=== PATIENT | female | born 1985 | race Caucasian/White ===

== ENCOUNTER 2020-04-22 14:35 | Outpatient (REF) | payer OTHER, SELFPAY ==
[2020-04-22 17:06] LABS: HCG Quantitative < 2 mIU/mL
== END 2020-04-22 14:36 | disposition home or self-care (01) ==
LOC: HO.HMGCLDS 14:35
PROVIDERS: PCP Internal Medicine; Visit Provider Nurse Practitioner Family
DX: Q83.9 Congenital malformation of breast, unspecified (principal)
CPT/HCPCS: 84702

== ENCOUNTER 2020-04-24 17:48 | Emergency (ER) | payer OTHER, SELFPAY ==
[2020-04-24 18:25] VITALS: BP 122/96; PULSE 85; RESP 16; TEMP 36.7; O2SAT 99; BMI 43.4
[2020-04-24 19:23] LABS: Glucose Urine UA NEG (NEG); Leukocyte Esterase Urine NEG (NEG); Nitrite Urine NEG (NEG); PH 5.5 (5.0-8.0); Specific Gravity - Urine >= 1.030 (1.005-1.025); Urine Blood NEG (NEG); Urine Ketones NEG (NEG); Urine Protein NEG (NEG-TRACE)
--- NOTE | 2020-04-24 19:24 | PC.NURSE ---
UA obtained and sent, pt ambulating to the bathroom with a gao/steady gait. Awaiting room assignment.
[2020-04-24 19:25] LABS: Appearance Urine CLEAR; Color Urine YELLOW
[2020-04-24 19:26] LABS: UPreg QC Valid YES; Urine Pregnancy NEGATIVE (NEGATIVE)
[2020-04-24 19:33] LABS: Bacteria Urine 1+ /LPF; RBC Urine 0 /HPF (0); Squamous Epithelial Cell Urine 1+ /LPF; WBC Urine 0 /HPF (0-4)
--- NOTE | 2020-04-24 20:21 | PC.NURSE ---
PT TO ROOM WITH C/O DIZZINESS. PT ARRIVES ALERT, RESPIRATIONS EASY, N/L. PT AWAITING FOR MD'S EVAL.
--- NOTE | 2020-04-24 20:23 | PC.NURSE ---
PT TO ED WITH C/O ABD PAIN. PT ARRIVES ALERT, RESPIRATIONS EASY, N/L. SKIN W/D. PT AWAITING FOR MD'S EVAL.
--- NOTE | 2020-04-24 20:58 | ED.ABDPAIN ---
HPI - Abdominal Pain General Chief Complaint: Abdominal Pain Stated Complaint: lump on abd Time Seen by Provider: 04/24/20 20:58 Source: patient Mode of arrival: ambulatory Limitations: no limitations History of Present Illness HPI narrative: Patient has had a lump in her abdomen for 3 weeks, does not move. [place] swollen and thought she was patient had prior cholecystectomy. Related Data Allergies Allergy/AdvReac Type Severity Reaction Status Date / Time No Known Allergies Allergy Verified 04/24/20 18:27 apples, strawberries, kiwi, Allergy Unknown shortness Uncoded 04/24/20 18:27 ma of breath Cats, Dust mites Allergy Unknown per Uncoded 04/24/20 18:27 allergy testing Environmental Allergy Unknown per Uncoded 04/24/20 18:27 allergy testing Review of Systems Constitutional: Reports no additional constitutional complaints Eyes: Reports no additional eye complaints Denies dizziness Cardiovascular: Reports no additional cardiovascular complaints Respiratory: Reports as per HPI Gastrointestinal: Reports no additional gastrointestinal complaints Genitourinary: Reports no additional female genitourinary complaints Musculoskeletal: Reports no additional musculoskeletal complaints Skin/Breast: Denies rash Reports system reviewed and no additional complaints, except as documented, Denies dizziness and Denies Sensory deficit (Neuro) Psychiatric: Denies anxiety Physical Exam Vital Signs: Vital Signs: Last Vital Signs Temp 98.1 F 04/24/20 18:25 Pulse 85 04/24/20 18:25 Resp 16 04/24/20 18:25 BP 122/96 H 04/24/20 18:25 Pulse Ox 99 04/24/20 18:25 Body Mass Index 43.4 Const: Other: female in no apparent distress Nutritional Appearance: obese Orientation/consciousness: oriented to person and patient oriented x3 Limitations: no limitations HENMT: Head: Yes normal to inspection Ears: external ears normal General nose exam: Normal external nose present Mouth: Normal oral and palatal mucosa present and oropharynx normal Throat: Yes posterior oropharynx normal Eyes: General: appearance normal, both eyes and all related structures Neck: Other: supple Neck: Yes normal visual inspection Chest: Chest palpation & inspection: normal inspection of the chest Resp: Auscultation: clear to auscultation bilaterally Cardio: Jugular venous distension: no JVD Rate: regular rate Rhythm: regular rhythm Heart sounds: S1 normal heart sound present and S2 normal heart sound present GI: Other: periumbilical/ventral hernia easily reduced, no erythema non tender Inspection: Yes normal to inspection Palpation (GI): Soft to palpation, nontender and No hepatosplenomegaly present Auscultation: normal bowel sounds : General: Yes no CVA tenderness Back/Spine/Pelvis: Back: no CVA tenderness Skin: General skin exam: no rashes or lesions noted Neuro: General: oriented to person and patient oriented x3 Cranial nerves: Yes CN's II-XII intact bilaterally Motor exam (neuro): 5/5 motor strength present throughout Sensory Exam: No Sensory deficit (Neuro) Extrem: General: Yes normal to inspection Psych: Appearance: grossly normal Course Course Course Narrative: easily reduced hernia MDM - Abdominal Pain MDM Narrative Medical decision making narrative: will dc home for evaluation by surgeon Differential Diagnosis Differential diagnosis narrative:: ventral/umbilical hernia Lab Data Labs: Lab Results 04/24/20 Range/Units 19:11 Urine Color YELLOW Urine Appearance CLEAR Urine pH 5.5 (5.0-8.0) Ur Specific [place] >= 1.030 H (1.005-1.025) Urine Protein NEG (NEG-TRACE) MG/DL Urine Glucose (UA) NEG (NEG) MG/DL Urine Ketones NEG (NEG) MG/DL Urine Blood NEG (NEG) Urine Nitrite NEG (NEG) Ur Leukocyte Esterase NEG (NEG) Urine RBC 0 (0) /HPF Urine WBC 0 (0-4) /HPF Ur Squamous Epith Cells 1+ /LPF Urine Bacteria 1+ /LPF Urine Test NEGATIVE (NEGATIVE) Discharge Plan Discharge Clinical Impression: Postoperative incisional hernia Ventral hernia Qualifiers: Obstruction and gangrene presence: without obstruction or gangrene Qualified Code(s): K43.9 - Ventral hernia without obstruction or gangrene Patient Disposition: Home, Self-Care Instructions: Ventral Hernia (ED) Referrals: Jadyn Tinoco MD [Primary Care Provider] - 2 days Harish Morris MD [Physician] - 2 days [facility] Past Medical History Surgical History (Updated 04/24/20 @ 18:26 by Shayy Mares RN) History of cholecystectomy Social History Social History Advance Directives: No Advance Directives Information Provided: No Advance Directives on File: No
--- NOTE | 2020-04-24 21:03 | PC.NURSE ---
in room for eval.
== END 2020-04-24 21:59 | disposition home or self-care (01) ==
PROVIDERS: Emergency Provider Emergency Medicine; PCP Internal Medicine
DX: K43.9 Ventral hernia without obstruction or gangrene (principal)
CPT/HCPCS: 81001; 81025; 99283

== ENCOUNTER 2020-05-23 10:12 | Outpatient (REF) | payer OTHER, SELFPAY ==
[2020-05-24 11:04] LABS: BV Int Neg Control Negative (Negative); BV Int Pos Control Positive (Positive)
[2020-06-20 16:26] LABS: CT PCR NOT DETECTED (Not Detect.); NG PCR NOT DETECTED (Not Detect.)
== END 2020-05-23 10:13 | disposition home or self-care (01) ==
LOC: HO.LAB 10:12
PROVIDERS: PCP Internal Medicine; Visit Provider Advanced Practice Midwife
DX: R10.2 Pelvic and perineal pain (principal); N92.6 Irregular menstruation, unspecified; N95.1 Menopausal and female climacteric states; E66.01 Morbid (severe) obesity due to excess calories; L70.9 Acne, unspecified; M79.18 Myalgia, other site; Z11.8 Encounter for screening for other infectious and parasitic diseases; Z11.3 Encounter for screening for infections with a predominantly sexual mode of transmission; Z68.41 Body mass index [BMI] 40.0-44.9, adult
CPT/HCPCS: 81025; 87480; 87491; 87510; 87591; 87660; 99212

== ENCOUNTER 2020-05-26 13:40 | Outpatient (REF) | payer OTHER, SELFPAY ==
--- NOTE | 2020-05-26 14:24 | US_ITS ---
EXAMINATION: US PELVIS, COMPLETE CLINICAL INFORMATION: Pelvic and perineal pain. COMPARISON: 12/03/2014 TECHNIQUE: Transabdominal and transvaginal imaging was performed. FINDINGS: LMP: January 2020 Uterus is anteverted , measuring 8.9 x 5.7 x 6 cm. Nabothian cysts present. Endometrial thickness 0.7 cm. 0.6 x 0.5 x 0.4 cm cystic focus in the myometrium body adjacent to the endometrium. Right ovary measures 3.1 x 2.4 x 2.8 cm. Volume 10.7 mL. 2 cm relatively anechoic avascular cyst. Left ovary measures 2.2 x 1.8 x 1.4 cm. Volume 2.9 mL. Left ovary appears unremarkable. Small amount of free fluid in the cul-de-sac. US/US pelvic complete IMPRESSION: 1. Nonspecific 0.6 cm myometrial cystic focus in the body of the uterus. 2. Right ovarian 2 cm cyst. 3. Small free fluid in the cul-de-sac.
--- NOTE | 2020-05-26 14:24 | US_ITS ---
EXAMINATION: US PELVIS, COMPLETE CLINICAL INFORMATION: Pelvic and perineal pain. COMPARISON: 12/03/2014 TECHNIQUE: Transabdominal and transvaginal imaging was performed. FINDINGS: LMP: January 2020 Uterus is anteverted , measuring 8.9 x 5.7 x 6 cm. Nabothian cysts present. Endometrial thickness 0.7 cm. 0.6 x 0.5 x 0.4 cm cystic focus in the myometrium body adjacent to the endometrium. Right ovary measures 3.1 x 2.4 x 2.8 cm. Volume 10.7 mL. 2 cm relatively anechoic avascular cyst. Left ovary measures 2.2 x 1.8 x 1.4 cm. Volume 2.9 mL. Left ovary appears unremarkable. Small amount of free fluid in the cul-de-sac. US/US transvaginal IMPRESSION: 1. Nonspecific 0.6 cm myometrial cystic focus in the body of the uterus. 2. Right ovarian 2 cm cyst. 3. Small free fluid in the cul-de-sac.
[2020-05-26 17:05] LABS: Thyroid Stimulating Hormone 0.98 uIU/mL (0.32-4.0)
[2020-05-27 16:02] LABS: Follicle Stimulating Hormone 3.5 mIU/mL; Prolactin 8.3 ng/mL
[2020-05-27 21:53] LABS: DHEA Sulfate 93 mcg/dL (23-266)
[2020-06-01 16:07] LABS: Testosterone, Total 31 ng/dL (2-45)
== END 2020-05-26 13:41 | disposition home or self-care (01) ==
LOC: HO.HMGCX 13:40
PROVIDERS: PCP Internal Medicine; Visit Provider Advanced Practice Midwife
DX: R10.2 Pelvic and perineal pain (principal)
CPT/HCPCS: 76830; 76856; 82627; 83001; 83498; 84146; 84402; 84403; 84443

== ENCOUNTER 2020-09-16 13:05 | Outpatient (REF) | payer OTHER, SELFPAY ==
[2020-09-17 11:29] LABS: CT PCR NOT DETECTED (Not Detect.); NG PCR NOT DETECTED (Not Detect.)
[2020-09-17 11:37] LABS: BV Int Neg Control Negative (Negative); BV Int Pos Control Positive (Positive)
== END 2020-09-16 13:06 | disposition home or self-care (01) ==
LOC: HO.LAB 13:05
PROVIDERS: PCP Internal Medicine; Visit Provider Advanced Practice Midwife
DX: Z01.419 Encounter for gynecological examination (general) (routine) without abnormal findings (principal); R30.0 Dysuria; L29.2 Pruritus vulvae; R10.2 Pelvic and perineal pain; Z20.2 Contact with and (suspected) exposure to infections with a predominantly sexual mode of transmission
CPT/HCPCS: 81003; 87480; 87491; 87510; 87591; 87660

== ENCOUNTER 2020-12-22 16:29 | Emergency (ER) | payer OTHER, SELFPAY ==
--- NOTE | 2020-12-22 | ECG_ITS ---
Test Reason : FLANK PAIN Blood Pressure : / mmHG Vent. Rate : 093 BPM Atrial Rate : 093 BPM P-R Int : 112 ms QRS Dur : 082 ms QT Int : 338 ms P-R-T Axes : 008 064 013 degrees QTc Int : 420 ms Normal sinus rhythm Anterior infarct , age undetermined Abnormal ECG When compared with ECG of 11-APR-2015 14:39, Vent. rate has decreased BY [address] no longer depressed in Anterior leads Nonspecific T wave abnormality has replaced inverted T waves in Inferior leads Referred By: Generic ED Physician Electronically Signed By:Cyrus Tejada
--- NOTE | ~2020-12-22 | XR_ITS ---
EXAMINATION: XR CHEST CLINICAL INFORMATION: Shortness of breath COMPARISON: None TECHNIQUE: 2 views of the chest were obtained. FINDINGS: No significant abnormality is noted involving the heart, lungs, mediastinum, bony thorax or soft tissues. XR/XR chest 2V IMPRESSION: Unremarkable examination.
--- NOTE | ~2020-12-22 | CT_ITS ---
EXAMINATION: CT ABDOMEN AND PELVIS WITHOUT CONTRAST CLINICAL INFORMATION: Flank pain with UTI and stones COMPARISON: CT abdomen pelvis 10/22/2009 TECHNIQUE: Multidetector volumetric imaging was performed from the superior aspect of the liver through the pubic symphysis. Sagittal and coronal reformatted images were obtained on the technologist's workstation. This CT examination was performed using dose optimization techniques as appropriate, variously including the following: *Automated exposure control *Adjustment of mA and/or kV according to patient size (this includes techniques or standardized protocols for targeted exams where dose is matched to indication/reason for exam; i.e. extremities or head) *Use of iterative reconstruction technique DLP: 819 mGy-cm FINDINGS: LUNG BASES: The visualized lung bases are unremarkable. LIVER, GALLBLADDER, AND BILIARY TREE: The liver is normal in size, shape, and attenuation. No focal hepatic lesion or biliary ductal dilatation is present. Status post cholecystectomy PANCREAS: Unremarkable. SPLEEN: Unremarkable. ADRENAL GLANDS: Unremarkable. KIDNEYS AND URETERS: There is some edematous change and stranding around the right kidney. No renal calculi are seen on either side. No renal masses are seen. No gross hydronephrosis is seen. BLADDER: The bladder is empty and difficult to evaluate. No bladder stones are seen. GASTROINTESTINAL TRACT: A tiny hiatal hernia is present. The small and large bowel are unremarkable. The appendix is unremarkable. ABDOMINAL WALL: No significant hernia is appreciated. LYMPH NODES: No retroperitoneal lymphadenopathy. VASCULAR: Unremarkable. PELVIC VISCERA: An anteverted uterus is present. A 2.6 cm left ovarian cyst is seen. The right ovary is unremarkable. No free intraperitoneal fluid is seen. OSSEOUS STRUCTURES: Unremarkable. CT/CT abdomen pelvis wo con IMPRESSION: Right-sided perinephric stranding suggesting possible bacterial nephritis. No calculi are seen. A CT urogram could be useful for further evaluation.
[2020-12-22 18:02] VITALS: BP 139/84; PULSE 96; RESP 18; TEMP 36.9; O2SAT 98; BMI 40.5
[2020-12-22 20:17] LABS: Basophils Percent Auto 0.2 % (0-2); Eosinophils Percent Auto 0.2 % (0-4); Hematocrit 36.9 % (37-47); Hemoglobin 12.8 g/dl (12.0-16.0); Imm Gran Abs Auto 0.08 X10*3/uL (0.00-0.03); Imm Gran Pct Auto 0.4 % (0.0-0.4); Lymphocytes Absolute Auto 2.1 X10*3/uL (1.2-4.9); Lymphocytes Percent Auto 11.7 % (20-40); MANUAL DIFF FLAG SCAN; Mean Corpuscular HGB Conc 34.7 g/dl (31.0-35.0); Mean Corpuscular Hemoglobin 31.6 pg (27.0-33.0); Mean Corpuscular Volume 91.1 fL (80-98); Mean Platelet Volume 10.3 fL (9.4-12.3); Monocytes Absolute Auto 1.7 X10*3/uL (0.1-1.2); Monocytes Percent Auto 9.2 % (2-11); Neutrophils Absolute Auto 14.2 X10*3/uL (2.0-8.3); Neutrophils Percent Auto 78.3 % (45-73); Platelet Count 240 X10*3/uL (160-400); Red Blood Count 4.05 X10*6/uL (4.20-5.50); Red Cell Distribution Width 12.2 % (11.0-16.0); SCAN SMEAR FLAG 1; White Blood Count 18.1 X10*3/uL (4.8-10.8)
[2020-12-22 20:40] LABS: SLIDE REVIEW VERIFIED
[2020-12-22 20:49] LABS: Alanine Aminotransferase 27 U/L (0-31); Alkaline Phosphatase 106 U/L (39-117); Anion Gap 14 (12-20); Aspartate Amino Transferase 15 U/L (5-31); Bilirubin Direct 0.5 mg/dL (0.0-0.5); Blood Urea Nitrogen 8 mg/dL (9-16); Calcium 8.6 mg/dL (8.4-10.2); Carbon Dioxide 20 mmol/L (22-29); Chloride 107 mmol/L (96-108); Creatinine Clr Calc Pharmacy 116.4; Estimated Glomerular Filt Rate > 60; Glucose Random 92 mg/dL (60-115); Lipase 11 U/L (8-78); Potassium 3.3 mmol/L (3.3-5.1); Sodium 138 mmol/L (135-145); Total Protein 6.8 g/dL (6.5-8.0)
[2020-12-22 21:11] LABS: Glucose Urine UA NEG (NEG); Leukocyte Esterase Urine TRACE (NEG); Nitrite Urine POS (NEG); Specific Gravity - Urine 1.025 (1.005-1.025); UACC Culture Trigger YES; Urine Blood 2+ (NEG); Urine Ketones >=80 MG/DL (NEG); Urine Protein 1+ MG/DL (NEG-TRACE)
[2020-12-22 21:13] VITALS: BP 133/82; PULSE 97; RESP 20; TEMP 37.2; O2SAT 100
[2020-12-22 21:13] LABS: Appearance Urine HAZY; Color Urine YELLOW; UPreg QC Valid YES; Urine Pregnancy NEGATIVE (NEGATIVE)
--- NOTE | 2020-12-22 21:14 | PC.NURSE ---
IV established. UA obtained and sent for analysis. news technical director at bedside for EKG. VSS. Awaiting primary MD salcido.
--- NOTE | 2020-12-22 21:18 | ED_ITS ---
HPI - General Adult General Chief complaint: General Medical Stated complaint: mutiple complaints Time Seen by Provider: 12/22/20 18:53 Source: patient Mode of arrival: ambulatory Limitations: no limitations History of Present Illness HPI narrative: Patient complaining of right flank pain for last 5 days nausea , vomiting and now diarrhea for last 2 days had fever at home with chills on arrival patient temperature was 103.1 degrees oral. Increased pain on taking deep inspiration also patient complaining of order in the urine without any dysuria frequency no hematuria patient does have history kidney stones in the past Related Data Home Medications Medication Instructions Recorded Confirmed erythromycin 5 mg/gram (0.5 %) eye 1 appl OPHTHALMIC (EYE) .4 times 07/03/20 ointment daily g ibuprofen 800 mg tablet 800 mg PO Q6H 07/03/20 ondansetron 4 mg disintegrating 4 mg PO DAILY tab 07/03/20 tablet Previous Rx's Medication Instructions Recorded metronidazole 500 mg tablet 500 mg PO BID 7 Days #14 tab 05/27/20 montelukast 10 mg tablet 10 mg PO DAILY 90 Days #90 tab 06/02/20 hydrocortisone 1 % topical ointment 1 appl TOPICAL BID #28.35 g 09/16/20 norethindrone (contraceptive) 0.35 0.35 mg PO DAILY PRN 30 Days #30 09/16/20 mg tablet tab metronidazole 0.75 % vaginal gel 1 appful VAGINAL BEDTIME 5 Days 09/23/20 #70 g ciprofloxacin HCl [Cipro] 500 mg PO BID #20 tab 12/22/20 ondansetron 4 mg PO Q6-8H PRN #7 tab 12/22/20 tramadol 50 mg PO Q6H PRN #20 tab 12/22/20 Allergies Allergy/AdvReac Type Severity Reaction Status Date / Time apples, strawberries, kiwi, Allergy Unknown shortness Uncoded 12/22/20 23:01 ma of breath Cats, Dust mites Allergy Unknown per Uncoded 12/22/20 23:01 allergy testing Environmental Allergy Unknown per Uncoded 12/22/20 23:01 allergy testing Review of Systems Review of Systems: Yes all other systems are reviewed and are negative PMFSH Past Medical History Medical History Migraine with aura Surgical History History of cholecystectomy Family History Family History Father Diabetes mellitus Mother High cholesterol HTN (hypertension) CVD (cardiovascular disease) Brother Diabetes mellitus Asthma Maternal Grandmother Diabetes mellitus Cancer Maternal Grandfather Diabetes mellitus Cancer Paternal Grandmother Unknown family medical history Paternal Grandfather No problems noted. Maternal Aunt Breast cancer Brother No problems noted. Brother No problems noted. Sister No problems noted. Daughter No problems noted. Daughter No problems noted. Daughter No problems noted. Social History Social History Alcohol intake: never Substance Use Type: Marijuana Advance Directives: No Advance Directives Information Provided: Yes Patient : No Physical Exam Vital Signs: Vital Signs: Last Vital Signs Temp 99.7 F 12/22/20 23:00 Pulse 85 12/22/20 23:44 Resp 20 12/22/20 23:44 BP 133/62 12/22/20 23:44 Pulse Ox 100 12/22/20 21:13 Body Mass Index 40.5 Appearance: Alert. Oriented X3. In moderate distress complaining of right flank pain Eyes: PERRLA, No Nystagmus ENT: Pharynx normal. Oral Mucosa moist Neck: Normal inspection. Neck supple. CVS: Normal heart rate and rhythm. Pulses normal. Respiratory: No respiratory distress. Equal air entry bilateral, Abdomen: Soft and nontender. Bowel sounds are present, no mass palpable, right CVA tenderness ++ Skin: Skin warm and dry. Normal skin color. Normal skin turgor. Extremities: No lower extremity edema. No calf tenderness Neuro: Oriented X 3. No motor deficit. Medical Decision Making MDM Narrative Medical decision making narrative: Patient with UTI with flank pain with fever and leukocytosis clinically a pyelonephritis patient does not have any other comorbid condition IV fluids were given has normal lactic acid level. Bhavin venegas patient home on p.o. Cipro advised to follow with PCP Lab Data Lab results reviewed: Yes I reviewed the patient's lab results. Result diagrams: 12/22/20 20:10 12/22/20 20:10 Labs: Lab Results 12/22/20 12/22/20 12/22/20 Range/Units 20:10 20:10 21:05 WBC 18.1 H (4.8-10.8) X10*3/uL RBC 4.05 L (4.20-5.50) X10*6/uL Hgb 12.8 (12.0-16.0) g/dl Hct 36.9 L (37-47) % MCV 91.1 (80-98) fL MCH 31.6 (27.0-33.0) pg MCHC 34.7 (31.0-35.0) g/dl RDW 12.2 (11.0-16.0) % Plt Count 240 (160-400) X10*3/uL MPV 10.3 (9.4-12.3) fL Immature Gran % (Auto) 0.4 (0.0-0.4) % Neut % (Auto) 78.3 H (45-73) % Lymph % (Auto) 11.7 L (20-40) % [place] % (Auto) 9.2 (2-11) % Eos % (Auto) 0.2 (0-4) % Baso % (Auto) 0.2 (0-2) % Lymph # (Auto) 2.1 (1.2-4.9) X10*3/uL [place] # (Auto) 1.7 H (0.1-1.2) X10*3/uL Eos # (Auto) 0.0 (0.0-0.4) X10*3/uL Baso # (Auto) 0.0 (0.0-0.2) X10*3/uL Abs Immat Gran (auto) 0.08 H (0.00-0.03) X10*3/uL Absolute Neuts (auto) 14.2 H (2.0-8.3) X10*3/uL Absolute Nucleated RBC 0.000 (0.0-0.012) X10*3/uL Nucleated RBC % (auto) 0.0 (0.0-0.2) /100WBC Smear Tech's Comments VERIFIED Sodium 138 (135-145) mmol/L Potassium 3.3 (3.3-5.1) mmol/L Chloride 107 (96-108) mmol/L Carbon Dioxide 20 L (22-29) mmol/L Anion Gap 14 (12-20) BUN 8 L (9-16) mg/dL Creatinine 0.77 (0.5-1.4) mg/dL Estim Creat Clear Calc 116.4 Estimated GFR > 60 Random Glucose 92 (60-115) mg/dL Lactic Acid (0.5-2.0) mmol/L Calcium 8.6 (8.4-10.2) mg/dL Total Bilirubin 1.0 (0.0-1.0) mg/dL Direct Bilirubin 0.5 (0.0-0.5) mg/dL AST 15 (5-31) U/L ALT 27 (0-31) U/L Alkaline Phosphatase 106 (39-117) U/L Total Protein 6.8 (6.5-8.0) g/dL Albumin 4.0 (3.5-5.0) g/dL Lipase 11 (8-78) U/L Urine Color YELLOW Urine Appearance HAZY Urine pH 6.0 (5.0-8.0) Ur Specific [place] 1.025 (1.005-1.025) Urine Protein 1+ H (NEG-TRACE) MG/DL Urine Glucose (UA) NEG (NEG) MG/DL Urine Ketones >=80 (NEG) MG/DL Urine Blood 2+ H (NEG) Urine Nitrite POS H (NEG) Ur Leukocyte Esterase TRACE H (NEG) Urine RBC 10-14 H (0) /HPF Urine WBC 10-14 H (0-4) /HPF Ur Squamous Epith Cells 2+ /LPF Urine Bacteria 2+ /LPF Urine Mucus 2+ /LPF Urine Test (NEGATIVE) 12/22/20 12/22/20 Range/Units 21:05 21:40 WBC (4.8-10.8) X10*3/uL RBC (4.20-5.50) X10*6/uL Hgb (12.0-16.0) g/dl Hct (37-47) % MCV (80-98) fL MCH (27.0-33.0) pg MCHC (31.0-35.0) g/dl RDW (11.0-16.0) % Plt Count (160-400) X10*3/uL MPV (9.4-12.3) fL Immature Gran % (Auto) (0.0-0.4) % Neut % (Auto) (45-73) % Lymph % (Auto) (20-40) % [place] % (Auto) (2-11) % Eos % (Auto) (0-4) % Baso % (Auto) (0-2) % Lymph # (Auto) (1.2-4.9) X10*3/uL [place] # (Auto) (0.1-1.2) X10*3/uL Eos # (Auto) (0.0-0.4) X10*3/uL Baso # (Auto) (0.0-0.2) X10*3/uL Abs Immat Gran (auto) (0.00-0.03) X10*3/uL Absolute Neuts (auto) (2.0-8.3) X10*3/uL Absolute Nucleated RBC (0.0-0.012) X10*3/uL Nucleated RBC % (auto) (0.0-0.2) /100WBC Smear Tech's Comments Sodium (135-145) mmol/L Potassium (3.3-5.1) mmol/L Chloride (96-108) mmol/L Carbon Dioxide (22-29) mmol/L Anion Gap (12-20) BUN (9-16) mg/dL Creatinine (0.5-1.4) mg/dL Estim Creat Clear Calc Estimated GFR Random Glucose (60-115) mg/dL Lactic Acid 1.4 (0.5-2.0) mmol/L Calcium (8.4-10.2) mg/dL Total Bilirubin (0.0-1.0) mg/dL Direct Bilirubin (0.0-0.5) mg/dL AST (5-31) U/L ALT (0-31) U/L Alkaline Phosphatase (39-117) U/L Total Protein (6.5-8.0) g/dL Albumin (3.5-5.0) g/dL Lipase (8-78) U/L Urine Color Urine Appearance Urine pH (5.0-8.0) Ur Specific [place] (1.005-1.025) Urine Protein (NEG-TRACE) MG/DL Urine Glucose (UA) (NEG) MG/DL Urine Ketones (NEG) MG/DL Urine Blood (NEG) Urine Nitrite (NEG) Ur Leukocyte Esterase (NEG) Urine RBC (0) /HPF Urine WBC (0-4) /HPF Ur Squamous Epith Cells /LPF Urine Bacteria /LPF Urine Mucus /LPF Urine Test NEGATIVE (NEGATIVE) Discharge Plan Discharge Clinical Impression: Acute bacterial pyelonephritis Patient Disposition: Home, Self-Care Instructions: Kidney Infection (ED) Additional Instructions: Drink plenty of fluids Take antibiotic as prescribed Report to ER if high fever/vomiting/not feeling better Prescriptions: New ciprofloxacin HCl [Cipro] 500 mg tablet 500 mg PO BID Qty: 20 RF: 0 tramadol 50 mg tablet 50 mg PO Q6H PRN (Reason: pain) Qty: 20 RF: 0 ondansetron 4 mg tablet,disintegrating 4 mg PO Q6-8H PRN (Reason: nausea and vomiting) Qty: 7 RF: 0 No Action metronidazole [Flagyl] 500 mg tablet 500 mg PO BID 7 Days Qty: 14 RF: 0 montelukast 10 mg tablet 10 mg PO DAILY 90 Days Qty: 90 RF: 0 metronidazole [Metrogel Vaginal] 0.75 % gel 1 appful vaginal BEDTIME 5 Days Qty: 70 RF: 0 hydrocortisone [Anti-Itch (HC)] 1 % ointment 1 appl topical BID Qty: 28.35 RF: 1 norethindrone (contraceptive) [Rita] 0.35 mg tablet 0.35 mg PO DAILY PRN (Reason: contraception) 30 Days Qty: 30 RF: 4 Interventions: ED Discharge Assessment Last Done: 12/22/20 23:48 Discharge Date/Time: 12/22/20 23:53
[2020-12-22 21:21] LABS: Bacteria Urine 2+ /LPF; Mucus Urine 2+ /LPF; Squamous Epithelial Cell Urine 2+ /LPF
[2020-12-22] MEDS: ondansetron HCL 4 MG/2 ML VIAL IVPUSH (21:32)
[2020-12-22] MEDS: 0.9 % Sodium Chloride 1,000 ML 999 ML IVCONT ×2 (21:32→21:42)
[2020-12-22 21:33] VITALS: TEMP 39.5
--- NOTE | 2020-12-22 21:34 | PC.NURSE ---
Off to CT on hospital bed.
[2020-12-22] MEDS: Morphine Sulfate 4 MG/ML CARTRIDGE IVPUSH (21:42)
[2020-12-22] MEDS: Acetaminophen 325 MG TABLET 650 MG PO (21:42)
[2020-12-22] MEDS: Ketorolac Tromethamine 30 MG/ML VIAL IVPUSH (21:42)
[2020-12-22] MEDS: cefTRIAXone sodium 1 GM in 0.9 % Sodium Chloride 50 ML IV (21:43)
[2020-12-22 22:07] LABS: Lactic Acid 1.4 mmol/L (0.5-2.0)
[2020-12-22 23:00] VITALS: BP 128/61; PULSE 87; RESP 16; TEMP 37.6
[2020-12-22 23:44] VITALS: BP 133/62; BP 141/54; PULSE 85; RESP 20
== END 2020-12-22 23:53 | disposition home or self-care (01) ==
PROVIDERS: Emergency Provider Internal Medicine; PCP Internal Medicine
DX: N10 Acute pyelonephritis (principal); B96.89 Other specified bacterial agents as the cause of diseases classified elsewhere; R06.02 Shortness of breath; R10.9 Unspecified abdominal pain; R11.2 Nausea with vomiting, unspecified; F12.90 Cannabis use, unspecified, uncomplicated; R19.7 Diarrhea, unspecified; Z79.899 Other long term (current) drug therapy
CPT/HCPCS: 36415; 71046; 74176; 80048; 80076; 81001; 81003; 81025; 83605; 83690; 85025; 87040; 87086; 87088; 87186; 93005; 96365; 96375; 96376; 99284; J0696; J1885; J2270; J2405

== ENCOUNTER → 2021-01-19 11:29 | Outpatient (BNVA) | payer OTHER, SELFPAY | PROVIDERS: PCP Internal Medicine; Visit Provider Advanced Practice Midwife ==

== ENCOUNTER 2021-09-18 12:46 | Outpatient (REF) | payer OTHER, SELFPAY ==
[2021-09-18 14:51] LABS: Syphilis Screen Nonreactive (Nonreactive)
[2021-09-18 16:40] LABS: CT PCR NOT DETECTED (Not Detect.); NG PCR NOT DETECTED (Not Detect.)
[2021-09-19 11:14] LABS: BV Int Neg Control Negative (Negative); BV Int Pos Control Positive (Positive)
[2021-09-21 04:11] LABS: HBc Num1 0.07 S/CO (0.00-0.79); Hepatitis B Core Antibody Nonreactive (Nonreactive); ~HepC Num1 0.15 S/CO (0.00-0.79); ~Hepatitis C Antibody Nonreactive (Nonreactive)
[2021-09-21 04:22] LABS: HIV AB/AG Nonreactive (Nonreactive); HIV Num 1 0.07 S/CO (0.00-0.99)
== END 2021-09-18 12:47 | disposition home or self-care (01) ==
LOC: HO.LAB 12:46
PROVIDERS: PCP Internal Medicine; Visit Provider Advanced Practice Midwife
DX: Z30.41 Encounter for surveillance of contraceptive pills (principal); Z20.2 Contact with and (suspected) exposure to infections with a predominantly sexual mode of transmission
CPT/HCPCS: 36415; 86704; 86780; 86803; 87389; 87480; 87491; 87510; 87591; 87660

== ENCOUNTER 2021-09-29 16:47 | Emergency (ER) | payer OTHER, SELFPAY ==
--- NOTE | ~2021-09-29 | XR_ITS ---
EXAMINATION: PORTABLE CHEST 1 VIEW CLINICAL INFORMATION: cough . COMPARISON: No recent pertinent prior studies are available for comparison. TECHNIQUE: Portable frontal view of the chest was obtained. FINDINGS: The lungs are well expanded. No focal infiltrate, effusion, edema, or pneumothorax. Cardiac and mediastinal silhouettes are within normal limits for technique. No acute bony abnormality seen. XR/XR chest 1V IMPRESSION: No evidence of acute disease.
[2021-09-29 17:03] VITALS: BP 144/85; PULSE 114; RESP 20; TEMP 36.9; O2SAT 97; BMI 41.8
[2021-09-29 17:33] LABS: Influenza A Positive (Negative); Influenza B2 Negative (Negative)
[2021-09-29 17:39] LABS: COVID-19 Test Negative (Negative)
[2021-09-29 18:24] VITALS: TEMP 38.6; O2SAT 97
[2021-09-29] MEDS: Acetaminophen 325 MG TABLET 650 MG PO (18:25)
--- NOTE | 2021-09-29 19:31 | ED_ITS ---
HPI - URI/Sore Throat General Chief Complaint: Upper Respiratory Symptoms Stated Complaint: sob,right kidney pain,chills Time Seen by Provider: 09/29/21 18:50 Source: patient Mode of arrival: ambulatory Limitations: no limitations History of Present Illness HPI Narrative: 36 yo female presenting with 2 days of cough, congestion, chills, diffuse body aches and headaches. She also reports subjective fevers. She denies any known sick contacts. She reports a history of mild intermittent asthma that flares up when she gets sick. She does not use any inhalers on a regular basis. She reports she feels like she has been wheezing lately. She reports her cough is mostly dry but she just started pulling up phlegm today. She reports decreased p.o. intake and just generally not feeling well. She is vaccinated for the flu in the fall but not for COVID. MD elicited complaint: fever, cough, nasal congestion and other (Body aches) Onset (ago): day(s) (2) Consistency: progressively worsening Severity: moderate Description of mucous: clear and watery Able to tolerate fluids by mouth: Yes Exacerbating factors: exertion Relieving factors: NSAID Associated symptoms: fever, chills, myalgias, headache, rhinorrhea, nasal congestion, sore throat, cough and shortness of breath Treatments prior to arrival: none Related Data Previous Rx's Medication Instructions Recorded norethindrone (contraceptive) 0.35 0.35 mg PO DAILY PRN 30 Days #30 09/18/21 mg tablet (Rita) tab metronidazole 500 mg tablet 500 mg PO Q12H 7 Days #14 tab 09/25/21 albuterol sulfate 90 mcg/actuation 2 inh INHALATION Q4H PRN #1 ea 09/29/21 breath activated powder inhaler (ProAir RespiClick) oseltamivir 75 mg capsule (Tamiflu) 75 mg PO BID 5 Days #10 cap 09/29/21 prednisone 20 mg tablet 40 mg PO DAILY #10 tab 09/29/21 Allergies Allergy/AdvReac Type Severity Reaction Status Date / Time apples, strawberries, kiwi, Allergy Unknown shortness Uncoded 09/18/21 13:07 ma of breath Cats, Dust mites Allergy Unknown per Uncoded 09/18/21 13:07 allergy testing Environmental Allergy Unknown per Uncoded 09/18/21 13:07 allergy testing Review of Systems Review of Systems: Constitutional: + Fever, +Chills ENT/Mouth: + sore throat, + Rhinorrhea, No Swallowing Difficulty Eyes: No Eye Pain, No Swelling, No Redness Cardiovascular: No Chest Pain, + SOB Respiratory: + Cough, No Sputum, + Wheezing, No dyspnea Gastrointestinal: No Nausea, No Vomiting, No Diarrhea, No abdominal Pain Genitourinary: No Dysuria, No Urinary Frequency, No Hematuria Musculoskeletal: No joint pain, + Myalgias Skin: No Skin Lesions, No rash Neuro: + Weakness, No Numbness, No Dizziness, + Headache Psych: No Anxiety/Panic, No Depression Heme/Lymph: No Bruising, No Lymphadenopathy PMFSH Past Medical History Medical History (Updated 09/29/21 @ 20:27 by AIDEN Griffith) Migraine with aura Morbid obesity with BMI of 40.0-44.9, adult Surgical History History of cholecystectomy Family History Family History Father Diabetes mellitus Mother High cholesterol HTN (hypertension) CVD (cardiovascular disease) Brother Diabetes mellitus Asthma Maternal Grandmother Diabetes mellitus Cancer Maternal Grandfather Diabetes mellitus Cancer Paternal Grandmother Unknown family medical history Paternal Grandfather No problems noted. Maternal Aunt Breast cancer Brother No problems noted. Brother No problems noted. Sister No problems noted. Daughter No problems noted. Daughter No problems noted. Daughter No problems noted. Other Mental health disorder Substance use disorder Social History Social History Housing: Apartment Alcohol intake: never Patient Tobacco Use Status: Never used Tobacco Substance Use Type: Marijuana Advance Directives: No Advance Directives Information Provided: No Patient : No Current occupational status: unemployed Physical Exam Vital Signs: Vital Signs: Last Vital Signs Temp 101.5 F H 09/29/21 18:24 Pulse 114 H 09/29/21 17:03 Resp 20 09/29/21 17:03 BP 144/85 H 09/29/21 17:03 Pulse Ox 97 09/29/21 18:24 BMI result Body Mass Index 41.8 Appearance: Alert. Oriented X3. No acute distress. Eyes: Pupils equal, round and reactive to light. ENT: Pharynx normal. No tonsillar swelling or exudate. Neck: Normal inspection. Neck supple. CVS: Normal heart rate and rhythm. Pulses normal. Respiratory: No respiratory distress. Speaking in complete sentences. End expiratory wheezes throughout, grade right than left. No rhonchi or rales. Dry cough noted Abdomen: Soft and nontender. +BS x4 Skin: Skin warm and dry. Normal skin color. Normal skin turgor. No rashes. Extremities: No lower extremity edema. Neuro: Oriented X 3. Grossly normal, nonfocal Course Course Course Narrative: 36-year-old female presenting to the ER for evaluation of 2 days of body aches, chills, congestion, shortness of breath, cough, headaches. She is fully vaccinated for COVID and flu. Patient has a fever 101.5, in no respiratory distress with oxygen saturation of 97% on room air. She has diffuse end- expiatory wheezing on examination but is speaking in complete sentences and breathing normally. Chest x-ray is clear. Her lab workup was unremarkable. She is found to be influenza A positive. Her symptoms are just started within the last 2 days so she is appropriate for Tamiflu. Will also give a 5 day course of prednisone and prescribed an albuterol inhaler given her wheezing. She is encourage follow-up with her primary care doctor. MDM - URI/Sore Throat Lab Data Labs: Lab Results 09/29/21 09/29/21 09/29/21 Range/Units 17:09 17:09 19:55 Urine Color YELLOW Urine Appearance HAZY Urine pH 5.5 (5.0-8.0) Ur Specific [place] >= 1.030 H (1.005-1.025) Urine Protein 1+ H (NEG-TRACE) MG/DL Urine Glucose (UA) NEG (NEG) MG/DL Urine Ketones 15 (NEG) MG/DL Urine Blood TRACE (NEG) Urine Nitrite NEG (NEG) Ur Leukocyte Esterase NEG (NEG) Urine RBC 1-4 (0) /HPF Urine WBC 0-2 (0-4) /HPF Ur Squamous Epith Cells 2+ /LPF Urine Bacteria TRACE /LPF Urine Mucus 1+ /LPF COVID-19 ([facility]WE[facility]) Negative (Negative) COVID-19 Clin Com See Note Influenza Type A (BIJAL) Positive A (Negative) Influenza Type B (BIJAL) Negative (Negative) Influenza A & B Note See Note Critical Care Time Critical Care Time Critical Care Time: No Discharge Plan Discharge Clinical Impression: Influenza, Asthma Patient Disposition: Home, Self-Care Instructions: Asthma (DC), Influenza (DC) Additional Instructions: Your found to be influenza positive. Your chest x-ray is clear view had wheezing on examination. Take the prescribed steroids and use the prescribed inhaler as needed for shortness of breath and wheezing. Take the prescribed antiviral medication to help shorten the duration of the flu, start taking tomorrow because her given the 1st dose tonight in the ER. Recommend [id number] cold and flu medications as needed for your symptoms. Your urinalysis today was negative for infection, your right-sided back pain is most likely muscular due to influenza. Take Motrin and Tylenol alternating around the clock for body aches and fevers. Follow-up with your doctor as needed. If you develop new or worsening symptoms call 911 or come back to the ER for further evaluation. Prescriptions: New oseltamivir [Tamiflu] 75 mg capsule 75 mg PO BID 5 Days Qty: 10 0RF prednisone 20 mg tablet 40 mg PO DAILY Qty: 10 0RF ProAir RespiClick 90 mcg/actuation aerosol powdr breath activated 2 inh inhalation Q4H PRN (Reason: shortness of breath or wheezing) Qty: 1 0RF No Action metronidazole 500 mg tablet 500 mg PO Q12H 7 Days Qty: 14 0RF norethindrone (contraceptive) [Rita] 0.35 mg tablet 0.35 mg PO DAILY PRN (Reason: contraception) 30 Days Qty: 30 11RF Referrals: Jadyn Tinoco MD [Primary Care Provider] - 1 week (Influenza and asthma exacerbation) Stand Alone Forms: Work/School Release Interventions: ED Discharge Assessment Last Done: 09/29/21 20:38
[2021-09-29] MEDS: Oseltamivir Phosphate 75 MG CAPSULE PO (19:49)
[2021-09-29] MEDS: predniSONE 20 MG TABLET 40 MG PO (19:49)
[2021-09-29] MEDS: Ibuprofen 600 MG TABLET PO (19:49)
[2021-09-29 20:04] LABS: Appearance Urine HAZY; Color Urine YELLOW; Glucose Urine UA NEG (NEG); Leukocyte Esterase Urine NEG (NEG); Nitrite Urine NEG (NEG); PH 5.5 (5.0-8.0); Specific Gravity - Urine >= 1.030 (1.005-1.025); UACC Culture Trigger NO; Urine Blood TRACE (NEG); Urine Ketones 15 MG/DL (NEG); Urine Protein 1+ MG/DL (NEG-TRACE)
[2021-09-29 20:10] LABS: Bacteria Urine TRACE /LPF; Mucus Urine 1+ /LPF; Squamous Epithelial Cell Urine 2+ /LPF; WBC Urine 0-2 /HPF (0-4)
== END 2021-09-29 20:42 | disposition home or self-care (01) ==
PROVIDERS: Physician Assistant; Emergency Provider Emergency Medicine Emergency Medical Services; PCP Internal Medicine
DX: J11.1 Influenza due to unidentified influenza virus with other respiratory manifestations (principal); J45.909 Unspecified asthma, uncomplicated; M79.10 Myalgia, unspecified site; R06.02 Shortness of breath; R51.9 Headache, unspecified; R05.9 Cough, unspecified; Z20.822 Contact with and (suspected) exposure to COVID-19; Z79.899 Other long term (current) drug therapy
CPT/HCPCS: 71045; 81001; 81003; 87502; 87635; 99283; 99284

== ENCOUNTER 2021-11-06 08:30 | Outpatient (REF) | payer OTHER, SELFPAY ==
[2021-11-06 11:30] LABS: MANUAL DIFF FLAG NO
[2021-11-06 11:34] LABS: Basophils Percent Auto 0.5 % (0-2); Eosinophils Absolute Auto 0.2 X10*3/uL (0.0-0.4); Hematocrit 41.7 % (37.0-47.0); Hemoglobin 14.4 g/dl (12.0-16.0); Imm Gran Abs Auto 0.01 X10*3/uL (0.00-0.03); Imm Gran Pct Auto 0.2 % (0.0-0.4); Lymphocytes Percent Auto 48.6 % (20-40); Mean Corpuscular HGB Conc 34.5 g/dl (31.0-35.0); Mean Corpuscular Hemoglobin 31.4 pg (27.0-33.0); Mean Corpuscular Volume 90.8 fL (80.0-98.0); Mean Platelet Volume 11.3 fL (9.4-12.3); Monocytes Absolute Auto 0.4 X10*3/uL (0.1-1.2); Neutrophils Absolute Auto 1.4 x10*3/uL (2.0-8.3); Neutrophils Percent Auto 33.7 % (45-73); Platelet Count 251 X10*3/uL (160-400); Red Blood Count 4.59 X10*6/uL (4.20-5.50); Red Cell Distribution Width 12.6 % (11.0-16.0)
[2021-11-06 12:00] LABS: Alanine Aminotransferase 36 U/L (0-31); Albumin Level 4.2 g/dL (3.5-5.0); Alkaline Phosphatase 67 U/L (39-117); Anion Gap 11 (12-20); Aspartate Amino Transferase 19 U/L (5-31); Bilirubin Total 0.7 mg/dL (0.0-1.0); Blood Urea Nitrogen 9 mg/dL (9-16); Calcium 9.1 mg/dL (8.4-10.2); Carbon Dioxide 20 mmol/L (22-29); Chloride 109 mmol/L (96-108); Cholesterol 186 mg/dL; Estimated Glomerular Filt Rate > 60; Glucose Fasting 93 mg/dL (60-99); HDL Cholesterol 36 mg/dL; LDL Cholesterol Calculated 137 mg/dl; Potassium 4.1 mmol/L (3.3-5.1); Sodium 136 mmol/L (135-145); Total Protein 7.1 g/dL (6.5-8.0); Triglycerides 67 mg/dL
[2021-11-06 12:23] LABS: TSH reflex Free T4 1.14 uIU/mL (0.32-4.0)
== END 2021-11-06 08:31 | disposition home or self-care (01) ==
LOC: HO.HMGCLDS 08:30
PROVIDERS: PCP Internal Medicine; Visit Provider Internal Medicine
DX: Z00.01 Encounter for general adult medical examination with abnormal findings (principal); E66.01 Morbid (severe) obesity due to excess calories; M19.90 Unspecified osteoarthritis, unspecified site; M79.10 Myalgia, unspecified site
CPT/HCPCS: 36415; 80053; 80061; 84443; 85025

== ENCOUNTER 2022-02-16 09:10 | Outpatient (REF) | payer OTHER, SELFPAY ==
[2022-02-16 15:24] LABS: CT PCR NOT DETECTED (Not Detect.); NG PCR NOT DETECTED (Not Detect.)
== END 2022-02-16 09:11 | disposition home or self-care (01) ==
LOC: HO.LNP 09:10
PROVIDERS: Visit Provider Obstetrics & Gynecology
DX: N39.0 Urinary tract infection, site not specified (principal); B95.1 Streptococcus, group B, as the cause of diseases classified elsewhere; Z11.3 Encounter for screening for infections with a predominantly sexual mode of transmission
CPT/HCPCS: 81025; 87086; 87147; 87491; 87591; 99212

== ENCOUNTER 2022-08-13 08:02 | Outpatient (REF) | payer OTHER, SELFPAY | END 2022-08-13 08:03 | disposition home or self-care (01) | LOC: HO.LNP 08:02 | PROVIDERS: PCP Internal Medicine; Visit Provider Advanced Practice Midwife | DX: O09.529 Supervision of elderly multigravida, unspecified trimester (principal); O26.899 Other specified pregnancy related conditions, unspecified trimester; R10.2 Pelvic and perineal pain | CPT/HCPCS: 99212 ==

== ENCOUNTER 2022-08-13 08:47 | Outpatient (REF) | payer OTHER, SELFPAY ==
--- NOTE | ~2022-08-13 | US_ITS ---
EXAMINATION: US OBSTETRICAL ULTRASOUND CLINICAL INFORMATION: Pelvic and perineal pain. COMPARISON: None. LMP: Unknown. TECHNIQUE: Ultrasound of the maternal pelvis is performed using transabdominal transducer. M-mode Doppler is also performed. FINDINGS: There is a single intrauterine gestational sac with embryo/fetus and cardiac activity. No yolk sac is seen at this time. There is no significant subchorionic hemorrhage or hematoma. HR: 155 beats per minute. CRL (crown rump length): 4.41 cm (11 weeks 2 days +/- 4 days). TONI (estimated date of delivery): 03/02/2023 +/- 4 days. MATERNAL ADNEXA: The right maternal ovary measures 2.3 x 2 x 2.3 cm. Small follicle noted. The left maternal ovary measures 2.4 x 2 x 2.2 cm. Small follicle noted. There is no significant maternal adnexal mass. No maternal pelvic ascites. US/US OB <= 14 weeks fetus IMPRESSION: 1. Single intrauterine gestation with ultrasound gestational age of 11 weeks 2 days +/- 4 days. 2. Estimated date of delivery is 03/02/2023 +/- 4 days. 3. No maternal adnexal mass or pelvic ascites.
[2022-08-13 11:16] LABS: HCG Quantitative 108434 mIU/mL
[2022-08-13 11:49] LABS: CT PCR NOT DETECTED (Not Detect.); NG PCR NOT DETECTED (Not Detect.)
[2022-08-14 11:34] LABS: BV Int Neg Control Negative (Negative); BV Int Pos Control Positive (Positive)
== END 2022-08-13 08:48 | disposition home or self-care (01) ==
LOC: HO.US 08:47
PROVIDERS: PCP Internal Medicine; Visit Provider Advanced Practice Midwife
DX: O09.529 Supervision of elderly multigravida, unspecified trimester (principal); O26.899 Other specified pregnancy related conditions, unspecified trimester; R10.2 Pelvic and perineal pain
CPT/HCPCS: 0353U; 76801; 84702; 87480; 87510; 87660

== ENCOUNTER 2023-01-21 08:30 | Outpatient (AMB) | payer OTHER, SELFPAY ==
--- NOTE | 2023-01-21 08:35 | A.OFFPC_ITS ---
Vital Signs 01/21/23 08:38 Height 5 ft 3 in Weight 226 lb BMI 40.0 BP 128/82 Blood Pressure Location Rt brachial Position Sitting Pulse 92 Pulse Source Pulse Oximeter Pulse Oximetry (%) 98 Oxygen Delivery Method Room Air Intake Visit Reasons: Depression Allergies apples, strawberries, kiwi, ma Allergy (Unknown, Uncoded 01/21/23 08:35) shortness of breath Cats, Dust mites Allergy (Unknown, Uncoded 01/21/23 08:35) per allergy testing Environmental Allergy (Unknown, Uncoded 01/21/23 08:35) per allergy testing Medication List - Last Reconciled 01/21/23 by Jadyn Tinoco MD albuterol sulfate 90 mcg/actuation (ProAir HFA) 1 inh inhalation QID PRN 30 days albuterol sulfate 90 mcg/actuation (Ventolin HFA) 1 inh inhalation QID PRN 30 days buspirone 5 mg to 10mg orally daily PRN; Max 10mg as needed for anxiety. 30 days duloxetine (Cymbalta) 30 mg PO DAILY 90 days Tobacco use date assessed: 01/21/23 Dental Screening Dental Screen Date: 01/21/23 Did you have a dental visit in the last 12 months?: Yes Did you have a dental problem in the last 6 months where you did not have access to dental care?: No Was dental information given to patient?: Patient has dentist HPI Depression HPI Details Patient is 27-year-old female came in today for her follow-up appointment Last visit was May of last year after that patient did not come in for follow-up. She continued to feel depressed and tells me that she is ready to start counseling I have sent a message to our behavior health coordinator Currently she is taking duloxetine 30 mg and buspirone 5 mg 3 times a day Patient had a miscarriage in August She is a single mom of 3 children She tells me that she feels very irritated among people and also due to that reason having difficulty finding a job. I am adding Wellbutrin 200 mg to be started once in the morning and she is to continue buspirone and duloxetine Patient is to return in March she already have appointment Labs to be done today. Having difficulty losing weight her BMI is 40.0 [facility] Medical History Migraine with aura Morbid obesity with BMI of 40.0-44.9, adult Surgical History History of cholecystectomy Family History Father Diabetes mellitus Mother High cholesterol HTN (hypertension) CVD (cardiovascular disease) Brother Diabetes mellitus Asthma Maternal Grandmother Diabetes mellitus Cancer Maternal Grandfather Diabetes mellitus Cancer Paternal Grandmother Unknown family medical history Paternal Grandfather No problems noted. Maternal Aunt Breast cancer Brother No problems noted. Brother No problems noted. Sister No problems noted. Daughter No problems noted. Daughter No problems noted. Daughter No problems noted. Other Mental health disorder Substance use disorder Social History Housing: Apartment Alcohol intake: never Patient Tobacco Use Status: Never used Tobacco e-Cigarette/Vaping Use: Never Used Substance Use Type: Marijuana service: No Current occupational status: unemployed Cognitive needs: No Hearing needs: No Vision needs: Yes Female Reproductive History Menstrual Age of Menarche: 11 Questionnaire PHQ-9 Over the last 2 weeks, how often have you been bothered by any of the following problems? 1. Little interest or pleasure in doing things: nearly every day 2. Feeling down, depressed, or hopeless: nearly every day 3. Trouble falling or staying asleep, or sleeping too much: nearly every day 4. Feeling tired or having little energy: nearly every day 5. Poor appetite or overeating: more than half the days 6. Feeling bad about yourself - or that you are a failure or have let yourself or your family down: nearly every day 7. Trouble concentrating on things, such as reading the newspaper or watching t elevision: more than half the days 8. Moving or speaking so slowly that other people could have noticed. Or the opposite - being so fidgety or restless that you have been moving around a lot more than usual: more than half the days 9. Thoughts that you would be better off or of hurting yourself in some way: not at all Total score: 21 Depression Screening Interpretation: Positive 91179 - PHQ-9 Billing: Yes Source: Developed by Drs. Jeremias L. HectorJeri melendez Kurt Kroenke and colleagues, with an educational pacheco from [employer]. Thrive Questionnaire Date Thrive assessed: 01/21/23 I am a: Patient What is your living situation today?: I have a steady place to live Within the past 12 months, did the food you bought not last and you didn't have the money to get more?: Never true Within the past 12 months, did you worry whether your food would run out before you got money to buy more?: Never true Do you have trouble paying for medicines?: No Do you have trouble getting transportation to medical appointments?: No Do you have trouble paying your heating and electricity bill?: Yes Do you have trouble taking care of your child, family member or friend?: No Do you have trouble with day-to-day activities such as bathing, preparing meals, shopping, managing finances, etc.?: No Are you currently unemployed and looking for a job?: No Are you interested in more education?: No CHAU-7 AMB Questionnaire CHAU-7 Date CHAU - 7 assessed: 01/21/23 Feeling nervous, anxious, or on edge: 3 = Nearly every day Not being able to stop or control worryin = Nearly every day Worrying too much about different things: 3 = Nearly every day Trouble relaxin = Nearly every day Being so restless that it is hard to sit still: 3 = Nearly every day Becoming easily annoyed or irritable: 3 = Nearly every day Feeling afraid as if something awful might happen: 0 = Not at all Total CHAU-7 score (0-4 normal; 5-9 mild; 10-14 moderate; 15-21 severe): 18 Source: Developed by Drs. Jeremias Young, Jeri Howe, Manny Naqvi and colleagues, with an educational pacheco from [employer]. Review of Systems Const Denies chills and Denies fever(s) ENT Denies epistaxis and Denies nasal discharge Card Denies chest pain Resp Denies chest congestion, Denies cough and Denies hemoptysis GI Denies diarrhea and Denies nausea Skin/Breast Denies rash Neuro Reports no additional complaints Psych Reports no additional complaints Endo Reports no additional complaints Physical exam (Primary Care) Vital Signs: Last Vital Signs Pulse 92 01/21/23 08:38 BP 128/82 08/11/23 08:38 Pulse Ox 98 01/21/23 08:38 Oxygen Delivery Method Room Air 01/21/23 08:38 BMI result Body Mass Index 40.0 Tobacco/Smoking Status: Tobacco use Status Tobacco use date assessed 01/21/23 01/21/23 08:37 Patient Tobacco Use Status Never used Tobacco 01/21/23 08:37 e-Cigarette/Vaping Use Never Used 01/21/23 08:37 PHQ-9: PHQ-9 Score PHQ-9: Total score 21 01/21/23 09:00 Depression Screening Interpretation: Positive Thrive Assessment: Date of Thrive Assessment Date Thrive assessed 01/21/23 01/21/23 08:43 Const General: cooperative, comfortable and no acute distress Orientation/consciousness: patient oriented x3 HENMT Head: Yes normocephalic Eyes General: appearance normal, both eyes and all related structures Neck Neck: Yes supple Resp Effort & Inspection: normal respiratory effort, no cough and no stridor Cardio Rhythm: regular rhythm Heart sounds: S1 normal heart sound present and S2 normal heart sound present Skin General skin exam: turgor normal Neuro General: patient oriented x3, tone normal and moves all extremities Extrem Right lower extremity: no edema Left lower extremity: no edema Assessment and Plan Assessment & Plan (1) Major depression, recurrent: Code(s): F33.9 - Major depressive disorder, recurrent, unspecified (2) Morbid obesity due to excess calories: Code(s): E66.01 - Morbid (severe) obesity due to excess calories (3) Anxiety, generalized: Code(s): F41.1 - Generalized anxiety disorder (4) Panic disorder: Code(s): F41.0 - Panic disorder [episodic paroxysmal anxiety] Plan Patient is 27-year-old female came in today for her follow-up appointment Last visit was May of last year after that patient did not come in for follow-up. She continued to feel depressed and tells me that she is ready to start counseling I have sent a message to our behavior health coordinator Currently she is taking duloxetine 30 mg and buspirone 5 mg 3 times a day Patient had a miscarriage in August She is a single mom of 3 children She tells me that she feels very irritated among people and also due to that reason having difficulty finding a job. I am adding Wellbutrin 200 mg to be started once in the morning and she is to continue buspirone and duloxetine Patient is to return in March she already have appointment Labs to be done today. Having difficulty losing weight her BMI is 40.0 Orders: Orders Vitamin B12 Today E66.01 - Morbid (severe) obesity due to excess calories, F33.9 - Major depressive disorder, recurrent, unspecified, F41.0 - Panic disorder [episodic paroxysmal anxiety], F41.1 - Generalized anxiety disorder Comprehensive [place]. Panel Fast Today E66.01 - Morbid (severe) obesity due to excess calories, F33.9 - Major depressive disorder, recurrent, unspecified, F41.0 - Panic disorder [episodic paroxysmal anxiety], F41.1 - Generalized anxiety disorder Lipid Panel Today E66.01 - Morbid (severe) obesity due to excess calories, F33.9 - Major depressive disorder, recurrent, unspecified, F41.0 - Panic disorder [episodic paroxysmal anxiety], F41.1 - Generalized anxiety disorder TSH reflex Free T4 Today E66.01 - Morbid (severe) obesity due to excess calories, F33.9 - Major depressive disorder, recurrent, unspecified, F41.0 - Panic disorder [episodic paroxysmal anxiety], F41.1 - Generalized anxiety disorder Vitamin D 25-OH (D2 and D3) Today E66.01 - Morbid (severe) obesity due to excess calories, F33.9 - Major depressive disorder, recurrent, unspecified, F41.0 - Panic disorder [episodic paroxysmal anxiety], F41.1 - Generalized anxiety disorder Complete Blood Count Auto Diff Today E66.01 - Morbid (severe) obesity due to excess calories, F33.9 - Major depressive disorder, recurrent, unspecified, F41.0 - Panic disorder [episodic paroxysmal anxiety], F41.1 - Generalized anxiety disorder Medications: New bupropion HCl (Wellbutrin SR) 200 mg PO DAILY 90 tabs 0RF Changed From buspirone 5 mg to 10mg orally daily PRN; Max 10mg as needed for anxiety. 30 days 30 tabs 3RF anxiety To buspirone 5 mg PO TID PRN 90 tabs 3RF anxiety 30 days Refilled duloxetine (Cymbalta) 30 mg PO DAILY 90 caps 1RF 90 days Coding Level of Care Code Est Pt Level 4 (04709) Diagnoses Major depression, recurrent F33.9 Morbid obesity due to excess calories E66.01 Anxiety, generalized F41.1 Panic disorder F41.0
[2023-01-21 08:38] VITALS: BP 128/82; PULSE 92; O2SAT 98; BMI 40.0
== END 2023-01-21 09:06 | disposition home or self-care (01) ==
PROVIDERS: PCP Internal Medicine; Visit Provider Internal Medicine
DX: F33.9 Major depressive disorder, recurrent, unspecified (principal); E66.01 Morbid (severe) obesity due to excess calories; F41.1 Generalized anxiety disorder; Z68.41 Body mass index [BMI] 40.0-44.9, adult; F41.0 Panic disorder [episodic paroxysmal anxiety]
CPT/HCPCS: 99214

== ENCOUNTER 2023-01-21 09:05 | Outpatient (REF) | payer OTHER, SELFPAY ==
[2023-01-21 11:32] LABS: MANUAL DIFF FLAG NO
[2023-01-21 11:50] LABS: Basophils Percent Auto 0.4 % (0-2); Eosinophils Absolute Auto 0.7 X10*3/uL (0.0-0.4); Eosinophils Percent Auto 10.1 % (0-4); Hematocrit 40.5 % (37.0-47.0); Hemoglobin 14.1 g/dl (12.0-16.0); Imm Gran Abs Auto 0.02 X10*3/uL (0.00-0.03); Imm Gran Pct Auto 0.3 % (0.0-0.4); Lymphocytes Absolute Auto 2.3 X10*3/uL (1.2-4.9); Lymphocytes Percent Auto 32.8 % (20-40); Mean Corpuscular HGB Conc 34.8 g/dl (31.0-35.0); Mean Corpuscular Hemoglobin 31.8 pg (27.0-33.0); Mean Corpuscular Volume 91.4 fL (80.0-98.0); Mean Platelet Volume 10.8 fL (9.4-12.3); Monocytes Absolute Auto 0.5 X10*3/uL (0.1-1.2); Neutrophils Absolute Auto 3.5 x10*3/uL (2.0-8.3); Neutrophils Percent Auto 49.4 % (45-73); Platelet Count 255 X10*3/uL (160-400); Red Blood Count 4.43 X10*6/uL (4.20-5.50); Red Cell Distribution Width 12.2 % (11.0-16.0)
[2023-01-21 12:37] LABS: Alanine Aminotransferase 16 U/L (0-31); Albumin Level 4.1 g/dL (3.5-5.0); Alkaline Phosphatase 57 U/L (39-117); Anion Gap 9 (12-20); Aspartate Amino Transferase 14 U/L (5-31); Bilirubin Total 0.6 mg/dL (0.0-1.0); Blood Urea Nitrogen 13 mg/dL (9-16); Calcium 9.1 mg/dL (8.4-10.2); Carbon Dioxide 24 mmol/L (22-29); Chloride 110 mmol/L (96-108); Cholesterol 165 mg/dL; Estimated Glomerular Filt Rate > 60; Glucose Fasting 104 mg/dL (60-99); HDL Cholesterol 39 mg/dL; LDL Cholesterol Calculated 110 mg/dl; Potassium 3.9 mmol/L (3.3-5.1); Sodium 139 mmol/L (135-145); Total Protein 7.1 g/dL (6.5-8.0); Triglycerides 82 mg/dL
[2023-01-21 12:42] LABS: TSH reflex Free T4 0.74 uIU/mL (0.32-4.0)
[2023-01-21 13:44] LABS: Vitamin B12 320 pg/mL (200-900)
[2023-01-27 11:34] LABS: Vitamin D 25-OH, D2 <4 ng/mL; Vitamin D 25-OH, D3 23 ng/mL; Vitamin D 25-OH, Total 23 ng/mL (30-100)
== END 2023-01-21 09:06 | disposition home or self-care (01) ==
LOC: HO.HMGCLDS 09:05
PROVIDERS: PCP Internal Medicine; Visit Provider Internal Medicine
DX: E66.01 Morbid (severe) obesity due to excess calories (principal); F33.9 Major depressive disorder, recurrent, unspecified; F41.0 Panic disorder [episodic paroxysmal anxiety]; F41.1 Generalized anxiety disorder
CPT/HCPCS: 36415; 80053; 80061; 82306; 82607; 84443; 85025

== ENCOUNTER 2023-01-28 16:42 | Emergency (ER) | payer OTHER, SELFPAY ==
--- NOTE | 2023-01-28 16:49 | ED_ITS ---
HPI - General Adult General Chief complaint: General Medical Stated complaint: Stabbed self in left thumb with EpiPen Time Seen by Provider: 01/28/23 19:44 Source: patient, family, RN notes reviewed and old records reviewed Mode of arrival: ambulatory Limitations: no limitations History of Present Illness HPI narrative: 37-year-old female presents for evaluation of an accidental EpiPen injection into her left thumb. Patient reports that she is allergic to bees. She was stung on the right forearm around 3:00 a.m. by a bee. She states that she immediately ran upstairs to get her EpiPen and when she went to try and injected into her left thigh she had upside down She injected the finger to her left thumb. She complains of pain to the area and some appears pale but she reports that the color is returning slowly. Patient reports that she had some itching her throat and a swollen tongue prior to using EpiPen which he no longer is experiencing Related Data Previous Rx's Medication Instructions Recorded albuterol sulfate 90 mcg/actuation 1 inh inhalation QID PRN shortness 05/31/22 aerosol inhaler (ProAir HFA) of breath or wheezing 30 days #18 grams albuterol sulfate 90 mcg/actuation 1 inh inhalation QID PRN shortness 06/04/22 aerosol inhaler (Ventolin HFA) of breath or wheezing 30 days #6.7 grams bupropion HCl 200 mg tablet,12 hr 200 mg PO DAILY #90 tabs 01/21/23 sustained-release (Wellbutrin SR) buspirone 5 mg tablet 5 mg PO TID PRN anxiety 30 days 01/21/23 #90 tabs duloxetine 30 mg capsule,delayed 30 mg PO DAILY 90 days #90 caps 01/21/23 release (Cymbalta) epinephrine 0.3 mg/0.3 mL 0.3 mg (0.3 mL) IM Q4H PRN 01/28/23 injection, auto-injector (EpiPen) anaphylaxis #2 ea Allergies Allergy/AdvReac Type Severity Reaction Status Date / Time apples, strawberries, kiwi, Allergy Unknown shortness Uncoded 01/28/23 16:50 ma of breath Cats, Dust mites Allergy Unknown per Uncoded 01/28/23 16:50 allergy testing Environmental Allergy Unknown per Uncoded 01/28/23 16:50 allergy testing Review of Systems Musculoskeletal: Musculoskeletal: Reports limited range of motion Integumentary/Breasts: Skin/Breast: Reports change in pigmentation and Reports wounds PMFSH Past Medical History Medical History Migraine with aura Morbid obesity with BMI of 40.0-44.9, adult Surgical History History of cholecystectomy Family History Family History Father Diabetes mellitus Mother High cholesterol HTN (hypertension) CVD (cardiovascular disease) Brother Diabetes mellitus Asthma Maternal Grandmother Diabetes mellitus Cancer Maternal Grandfather Diabetes mellitus Cancer Paternal Grandmother Unknown family medical history Paternal Grandfather No problems noted. Maternal Aunt Breast cancer Brother No problems noted. Brother No problems noted. Sister No problems noted. Daughter No problems noted. Daughter No problems noted. Daughter No problems noted. Other Mental health disorder Substance use disorder Social History Social History Housing: Apartment Alcohol intake: never Patient Tobacco Use Status: Never used Tobacco e-Cigarette/Vaping Use: Never Used Substance Use Type: Marijuana Advance Directives: No Advance Directives Information Provided: No service: No Current occupational status: unemployed Cognitive needs: No Hearing needs: No Vision needs: Yes Physical Exam ED Vital Signs: Vital Signs - 24 hr 01/28/23 16:50 Temperature 98 F Pulse Rate 76 Respiratory Rate 18 Blood Pressure 155/99 H Pulse Oximetry 98 Oxygen Delivery Method Room Air BMI result Body Mass Index 40.6 Const General: healthy appearing, comfortable, no acute distress, alert and awake Nutritional Appearance: well nourished Orientation/consciousness: patient oriented x3 HENMT Head: Yes normocephalic and Yes atraumatic Eyes Eyelids: Yes eyelids normal Conjunctivae: conjunctivae normal Sclerae: sclerae normal Corneas: corneas normal Pupils: Equal, round and reactive pupils present EOM: EOMs intact bilaterally Resp Effort & Inspection: normal respiratory effort, able to speak in complete sentences and not labored Skin Other: Patient has a visible puncture wound in the center of her left thumb finger pad. No active bleeding. There is minimal ecchymosis inferior to this. The left thumb is pale in color. There is some faint capillary refill appears to be returning patient able to flex and extend the thumb at the MCP and interphalangeal joint General skin exam: elasticity normal Neuro General: patient oriented x3 Cranial nerves: Yes Equal, round and reactive pupils present and Yes Bilaterally intact EOM present Cognition (Neuro): normal cognition Extrem Other: Moving all extremities well without any obvious deformities Course Course Course Narrative: RME performed by Radha Santoyo PA-C. Patient is a 37 year old assigned female at presenting to the emergency department with left thumb pain after stabbing herself with her epi pen, incorrectly. Patient states that she got stung by a bee on her right arm and while having the reaction, accidentally stabbed herself in the left thumb. Patient placed back in the waiting room pending room availability. Reevaluation(s) Reevaluation #1: Patient re-evaluated after nitro paste. She still has some pallor to the left thumb although capillary refill and color appears to be improving. Patient stable for discharge at this time. Time: 20:53 Medications Administered Discontinued Medications Generic Name Dose Route Start Last Admin Trade Name Freq PRN Reason Stop Dose Admin Nitroglycerin 1 inch 01/28/23 19:56 01/28/23 20:02 Nitroglycerin 2 % Oint 1 Gm Packet TRANSDERMA 01/28/23 19:57 1 inch ONCE ONE Administration Medical Decision Making Medical Decision Making [facility] Narrative: Patient accidentally injected her left thumb with EpiPen approximately 4 hours prior to evaluation. It appears the color is returning. Will apply nitroglycerin paste to hopefully help expedite return of perfusion. Differential Diagnosis Differential Diagnoses: The differential diagnosis associated with the presentation includes Ischemic limb Accidental EpiPen injection Contusion Hematoma Discharge Plan Discharge Clinical Impression: Puncture wound Patient Disposition: Home, Self-Care Instructions: Epinephrine (By injection) Additional Instructions: Your finger will slowly return to normal color most likely within 6 hours but sometimes does take slightly longer. The pain will resolve when the finger is back to normal color. Never put your thumb over the cap of an EpiPen Follow-up with your primary doctor Prescriptions: New epinephrine [EpiPen] 0.3 mg/0.3 mL auto-injector 0.3 mg IM Q4H PRN (Reason: anaphylaxis) Qty: 2 0RF No Action albuterol sulfate [ProAir HFA] 90 mcg/actuation HFA aerosol inhaler 1 inh inhalation QID PRN (Reason: shortness of breath or wheezing) 30 Days Qty: 18 2RF albuterol sulfate [Ventolin HFA] 90 mcg/actuation HFA aerosol inhaler 1 inh inhalation QID PRN (Reason: shortness of breath or wheezing) 30 Days Qty: 6.7 0RF bupropion HCl [Wellbutrin SR] 200 mg tablet sustained-release 12 hr 200 mg PO DAILY Qty: 90 0RF duloxetine [Cymbalta] 30 mg capsule,delayed release(DR/EC) 30 mg PO DAILY 90 Days Qty: 90 1RF buspirone 5 mg tablet 5 mg PO TID PRN (Reason: anxiety) 30 Days Qty: 90 3RF
[2023-01-28 16:50] VITALS: BP 155/99; PULSE 76; RESP 18; TEMP 36.6; O2SAT 98; BMI 40.6
[2023-01-28] MEDS: Nitroglycerin 2 % Oint 1 GM Packet 1 INCH TRANSDERMA (20:02)
== END 2023-01-28 20:55 | disposition home or self-care (01) ==
PROVIDERS: Emergency Provider Emergency Medicine; PCP Internal Medicine
DX: S61.032A Puncture wound without foreign body of left thumb without damage to nail, initial encounter (principal); T44.5X1A Poisoning by predominantly beta-adrenoreceptor agonists, accidental (unintentional), initial encounter; M79.645 Pain in left finger(s); Y92.009 Unspecified place in unspecified non-institutional (private) residence as the place of occurrence of the external cause; Y93.9 Activity, unspecified; Y99.9 Unspecified external cause status
CPT/HCPCS: 99283

== ENCOUNTER 2023-03-01 09:43 | Outpatient (AMB) | payer OTHER, SELFPAY ==
--- NOTE | 2023-03-01 10:01 | AM.OFFWIN_ITS ---
Intake Vital Signs 03/01/23 10:28 Height 5 ft 3 in Weight 224 lb 2 oz BMI 39.7 BP 134/78 Blood Pressure Location Lt brachial Position Sitting Pulse 78 Pulse Source Pulse Oximeter Temp 97.5 F Temp Source Temporal Artery Scan Pulse Oximetry (%) 99 Oxygen Delivery Method Room Air Intake Visit Reasons: EP ?UTI Intake Note: Pt is here c/o frequent urination along with a pressure feeling when urinating. Patient Tobacco Use Status: Never used Tobacco Allergies apples, strawberries, kiwi, ma Allergy (Unknown, Uncoded 03/01/23 10:49) shortness of breath Cats, Dust mites Allergy (Unknown, Uncoded 03/01/23 10:49) per allergy testing Environmental Allergy (Unknown, Uncoded 03/01/23 10:49) per allergy testing Medication List - Last Reconciled 03/01/23 by Melquiades Brown MD albuterol sulfate 90 mcg/actuation (ProAir HFA) 1 inh inhalation QID PRN 30 days albuterol sulfate 90 mcg/actuation (Ventolin HFA) 1 inh inhalation QID PRN 30 days bupropion HCl (Wellbutrin SR) 200 mg PO DAILY buspirone 5 mg PO TID PRN 30 days duloxetine (Cymbalta) 30 mg PO DAILY 90 days epinephrine (EpiPen) 0.3 mg (0.3 mL) IM Q4H PRN Do you need a note to return to daycare/school/sports/work: No HPI EP ?UTI HPI Details Patient presents for a sick visit. Reports symptoms of increased frequency of urination, burning on urination and discomfort in the suprapubic area. Symptoms started in the past few days. No fevers or chills. No nausea or vomiting. [facility] Medical History (Updated 03/01/23 @ 10:50 by Melquiades Brown MD) UTI (urinary tract infection) Morbid obesity with BMI of 40.0-44.9, adult Migraine with aura Surgical History History of cholecystectomy Family History Father Diabetes mellitus Mother High cholesterol HTN (hypertension) CVD (cardiovascular disease) Brother Diabetes mellitus Asthma Maternal Grandmother Diabetes mellitus Cancer Maternal Grandfather Diabetes mellitus Cancer Paternal Grandmother Unknown family medical history Paternal Grandfather No problems noted. Maternal Aunt Breast cancer Brother No problems noted. Brother No problems noted. Sister No problems noted. Daughter No problems noted. Daughter No problems noted. Daughter No problems noted. Other Mental health disorder Substance use disorder Social History Housing: Apartment Alcohol intake: never Patient Tobacco Use Status: Never used Tobacco e-Cigarette/Vaping Use: Never Used Substance Use Type: Marijuana service: No Current occupational status: unemployed Cognitive needs: No Hearing needs: No Vision needs: Yes Female Reproductive History Menstrual Age of Menarche: 11 Physical Exam Vital Signs: Last Vital Signs Temp 97.5 F 03/01/23 10:28 Pulse 78 03/01/23 10:28 BP 134/78 03/01/23 10:28 Pulse Ox 99 03/01/23 10:28 Oxygen Delivery Method Room Air 03/01/23 10:28 BMI result Body Mass Index 39.7 General: Yes bladder normal to inspection, Yes bladder normal to palpation and Yes no CVA tenderness Bimanual exam- vagina & uterus: bladder normal to palpation Back/Spine/Pelvis Back: no CVA tenderness Results AMB Urinalysis, Automated UA Leukoctes 70 Judit/uL Last Edit by Adriane Weinstein CMA on 03/01/23 10:02 UA Nitrite Negative Last Edit by Adriane Weinstein CMA on 03/01/23 10:02 UA Urobilinogen 0.2 mg/dL Last Edit by Adriane Weinstein CMA on 03/01/23 10:02 UA Protein 0 mg/dL Last Edit by Adriane Weinstein CMA on 03/01/23 10:02 UA pH 6.0 Last Edit by Adriane Weinstein CMA on 03/01/23 10:02 UA Blood 80 Jon/uL Last Edit by Adriane Weinstein CMA on 03/01/23 10:02 UA Specific [place] 1.025 Last Edit by Adriane Weinstein CMA on 03/01/23 10:0 2 UA Ketone Negative Last Edit by Adriane Weinstein CMA on 03/01/23 10:02 UA Bilirubin 0 mg/dL Last Edit by Adriane Weinstein CMA on 03/01/23 10:02 UA Glucose 0 mg/dL Last Edit by Adriane Weinstein CMA on 03/01/23 10:02 Results Reviewed Results Reviewed: Laboratory Last Values Urine pH (Auto) 6.0 03/01/23 10:01 Specific [place] (Auto) 1.025 03/01/23 10:01 Urine Protein (Auto) 0 mg/dL 03/01/23 10:01 Glucose (UA)(Auto) 0 mg/dL 03/01/23 10:01 Urine Ketones (Auto) Negative 03/01/23 10:01 Urine Blood (Auto) 80 Jon/uL 03/01/23 10:01 Urine Nitrite (Auto) Negative 03/01/23 10:01 Urine Bilirubin (Auto) 0 mg/dL 03/01/23 10:01 Urine Urobilinogen (Auto) 0.2 mg/dL 03/01/23 10:01 Leukocyte Esterase (Auto) 70 Judit/uL 03/01/23 10:01 Assessment & Plan Assessment & Plan (1) UTI (urinary tract infection): Code(s): N39.0 - Urinary tract infection, site not specified Qualifiers: Urinary tract infection type: acute cystitis Hematuria presence: with hematuria Qualified Code(s): N30.01 - Acute cystitis with hematuria Plan: Take antibiotics and Pyridium as directed. Increase fluid intake. If symptoms of burning persist, new onset of fever or lower back pain, to follow-up at the clinic. Orders: Orders AMB Urinalysis Automated Today Z13.9 - Encounter for screening, unspecified Coding Level of Care Code Est Pt Level 3 (68960) Diagnoses Acute cystitis with hematuria N30.01 Urinary tract infection type: acute cystitis Hematuria presence: with hematuria
[2023-03-01 10:28] VITALS: BP 134/78; PULSE 78; TEMP 36.4; O2SAT 99; BMI 39.7
== END 2023-03-01 11:23 | disposition home or self-care (01) ==
PROVIDERS: PCP Internal Medicine; Visit Provider Internal Medicine
DX: N30.01 Acute cystitis with hematuria (principal); R35.0 Frequency of micturition
CPT/HCPCS: 81003; 99213

== ENCOUNTER 2023-07-29 09:34 | Outpatient (AMB) | payer OTHER, SELFPAY ==
[2023-07-29 09:39] VITALS: BP 146/100; PULSE 83; O2SAT 98; BMI 38.7
--- NOTE | 2023-07-29 09:39 | MHC.PC.OV ---
Vital Signs 07/29/23 09:39 Height 5 ft 3 in Weight 218 lb 8 oz BMI 38.7 BP 146/100 H Blood Pressure Location Rt brachial Position Sitting Pulse 83 Pulse Source Pulse Oximeter Pulse Oximetry (%) 98 Oxygen Delivery Method Room Air Intake Visit Reasons: Discuss depression Allergies apples, strawberries, kiwi, ma Allergy (Unknown, Uncoded 03/01/23 10:49) shortness of breath Cats, Dust mites Allergy (Unknown, Uncoded 03/01/23 10:49) per allergy testing Environmental Allergy (Unknown, Uncoded 03/01/23 10:49) per allergy testing Medication List - Last Reconciled 07/29/23 by Jadyn Tinoco MD albuterol sulfate 90 mcg/actuation (ProAir HFA) 1 inh inhalation QID PRN 30 days albuterol sulfate 90 mcg/actuation (Ventolin HFA) 1 inh inhalation QID PRN 30 days bupropion HCl (Wellbutrin SR) 200 mg PO DAILY buspirone 5 mg PO TID PRN 30 days duloxetine (Cymbalta) 30 mg PO DAILY 90 days epinephrine (EpiPen) 0.3 mg (0.3 mL) IM Q4H PRN Tobacco use date assessed: 07/29/23 Dental Screening Dental Screen Date: 07/29/23 Did you have a dental visit in the last 12 months?: No Did you have a dental problem in the last 6 months where you did not have access to dental care?: No Was dental information given to patient?: Patient has dentist HPI Discuss depression HPI Details Patient is 38-year-old female who suffers from anxiety and depression Has started therapy recently in Patient was taking Wellbutrin 200 mg in duloxetine 30 mg but she said that it is difficult for her to be regular on medications so she has stopped taking it But she would like to start again. She is also on buspirone 5 mg up to 3 times a day as needed Vitamin-D level was low I have sent refill on that Patient's blood pressure is 146/100 we rechecked it and it came back at 140/100 Patient will return next week for nursing visit to recheck her blood pressure, if still elevated she got a need to take medication Patient says that she would like to have a test as well because of her periods are so delayed. Test came back negative Patient is to return in 3 months for physical exam appointment She has history of impaired fasting sugar as well for that I would recommend to lose weight her BMI is elevated at 38.7 PFS Medical History UTI (urinary tract infection) Morbid obesity with BMI of 40.0-44.9, adult Migraine with aura Surgical History History of cholecystectomy Family History Father Diabetes mellitus Mother High cholesterol HTN (hypertension) CVD (cardiovascular disease) Brother Diabetes mellitus Asthma Maternal Grandmother Diabetes mellitus Cancer Maternal Grandfather Diabetes mellitus Cancer Paternal Grandmother Unknown family medical history Paternal Grandfather No problems noted. Maternal Aunt Breast cancer Brother No problems noted. Brother No problems noted. Sister No problems noted. Daughter No problems noted. Daughter No problems noted. Daughter No problems noted. Other Mental health disorder Substance use disorder Social History Housing: Apartment Alcohol intake: never Patient Tobacco Use Status: Never used Tobacco e-Cigarette/Vaping Use: Never Used Substance Use Type: Marijuana service: No Current occupational status: unemployed Cognitive needs: No Hearing needs: No Vision needs: Yes Female Reproductive History Menstrual Age of Menarche: 11 Questionnaire Thrive Questionnaire Date Thrive assessed: 01/21/23 AUDIT C Alcohol Use Questionnaire (AUDIT-C) 1. How often do you have a drink containing alcohol?: Never 3. How often do you have six or more drinks on one occasion?: Never Total Score: 0 Score Reviewed/Action Taken: Yes CHAU-7 AMB Questionnaire CHAU-7 Date CHAU - 7 assessed: 01/21/23 Source: Developed by Drs. Jeremias Young, Jeri Howe, Manny Naqvi and colleagues, with an educational pacheco from [employer]. Review of Systems Const Denies chills and Denies fever(s) ENT Denies epistaxis and Denies nasal discharge Card Denies chest pain Resp Denies chest congestion, Denies cough and Denies hemoptysis GI Denies diarrhea and Denies nausea Skin/Breast Denies rash Neuro Reports no additional complaints Psych Reports no additional complaints Endo Reports no additional complaints Physical exam (Primary Care) Vital Signs: Last Vital Signs Pulse 83 07/29/23 09:39 BP 146/100 H 07/29/23 09:39 Pulse Ox 98 07/29/23 09:39 Oxygen Delivery Method Room Air 07/29/23 09:39 BMI result Body Mass Index 38.7 Tobacco/Smoking Status: Tobacco use Status Tobacco use date assessed 07/29/23 07/29/23 09:44 Patient Tobacco Use Status Never used Tobacco 07/29/23 09:44 e-Cigarette/Vaping Use Never Used 07/29/23 09:44 Thrive Assessment: Date of Thrive Assessment Date Thrive assessed 01/21/23 07/29/23 09:44 Const General: cooperative, comfortable and no acute distress Orientation/consciousness: patient oriented x3 HENMT Head: Yes normocephalic Eyes General: appearance normal, both eyes and all related structures Neck Neck: Yes supple Resp Effort & Inspection: normal respiratory effort, no cough and no stridor Cardio Rhythm: regular rhythm Heart sounds: S1 normal heart sound present and S2 normal heart sound present Skin General skin exam: turgor normal Neuro General: patient oriented x3, tone normal and moves all extremities Extrem Right lower extremity: no edema Left lower extremity: no edema Results AMB Test Urine AMB Test Urine Negative Last Edit by Isak Santos CMA on 07/29/23 10:12 Results Reviewed Results Reviewed: Laboratory Last Values Tst Clinic Negative 07/29/23 10:08 Assessment and Plan Assessment & Plan (1) Major depression, recurrent: Code(s): F33.9 - Major depressive disorder, recurrent, unspecified Qualifiers: Active/Remission status: in partial remission Qualified Code(s): F33.41 - Major depressive disorder, recurrent, in partial remission (2) Anxiety, generalized: Code(s): F41.1 - Generalized anxiety disorder (3) Panic disorder: Code(s): F41.0 - Panic disorder [episodic paroxysmal anxiety] (4) Obesity due to excess calories: Code(s): E66.09 - Other obesity due to excess calories Qualifiers: Body mass index: BMI 38.0-38.9 Obesity classification: adult class 2 (BMI 35 - 39.9) Serious obesity comorbidity presence: without serious comorbidity Qualified Code(s): E66.09 - Other obesity due to excess calories; Z68.38 - Body mass index [BMI] 38.0-38.9, adult (5) Elevated blood pressure reading: Code(s): R03.0 - Elevated blood-pressure reading, without diagnosis of hypertension Plan Patient is 38-year-old female who suffers from anxiety and depression Has started therapy recently in Patient was taking Wellbutrin 200 mg in duloxetine 30 mg but she said that it is difficult for her to be regular on medications so she has stopped taking it But she would like to start again. She is also on buspirone 5 mg up to 3 times a day as needed Vitamin-D level was low I have sent refill on that Patient's blood pressure is 146/100 we rechecked it and it came back at 140/100 Patient will return next week for nursing visit to recheck her blood pressure, if still elevated she got a need to take medication Patient says that she would like to have a test as well because of her periods are so delayed. Test came back negative Patient is to return in 3 months for physical exam appointment She has history of impaired fasting sugar as well for that I would recommend to lose weight her BMI is elevated at 38.7 Orders: Orders AMB HCG Urine Test Today Z13.9 - Encounter for screening, unspecified Medications: Refilled bupropion HCl (Wellbutrin SR) 200 mg PO DAILY 90 tabs 1RF duloxetine (Cymbalta) 30 mg PO DAILY 90 caps 1RF 90 days Coding Level of Care Code Est Pt Level 4 (91658) Diagnoses Recurrent major depressive disorder, in partial remission F33.41 Active/Remission status: in partial remission Anxiety, generalized F41.1 Panic disorder F41.0 Class 2 obesity due to excess calories without serious comorbidity with body mass index (BMI) of 38.0 to 38.9 in adult E66.09; Z68.38 Body mass index: BMI 38.0-38.9 Obesity classification: adult class 2 (BMI 35 - 39.9) Serious obesity comorbidity presence: without serious comorbidity Elevated blood pressure reading R03.0
== END 2023-07-29 11:11 | disposition home or self-care (01) ==
PROVIDERS: PCP Internal Medicine; Visit Provider Internal Medicine
DX: R03.0 Elevated blood-pressure reading, without diagnosis of hypertension (principal); F33.41 Major depressive disorder, recurrent, in partial remission; F41.1 Generalized anxiety disorder; Z32.02 Encounter for pregnancy test, result negative; F41.0 Panic disorder [episodic paroxysmal anxiety]; E66.09 Other obesity due to excess calories; Z68.38 Body mass index [BMI] 38.0-38.9, adult
CPT/HCPCS: 81025; 99214

== ENCOUNTER 2023-08-30 12:24 | Outpatient (AMB) | payer OTHER, SELFPAY ==
--- NOTE | 2023-08-30 12:25 | AM.OFFWIN_ITS ---
Intake Vital Signs 08/30/23 12:26 Height 5 ft 3 in Weight 218 lb BMI 38.6 BP 130/100 H Blood Pressure Location Lt brachial Position Sitting Pulse 81 Pulse Source Pulse Oximeter Temp 97.7 F Temp Source Temporal Artery Scan Pulse Oximetry (%) 97 Oxygen Delivery Method Room Air Intake Visit Reasons: EP boil/cyst buttocks Intake Note: pt is here today for boil cyst buttocks started 5 days ago Patient Tobacco Use Status: Never used Tobacco Allergies apples, strawberries, kiwi, ma Allergy (Unknown, Uncoded 08/05/23 09:28) shortness of breath Cats, Dust mites Allergy (Unknown, Uncoded 08/05/23 09:28) per allergy testing Environmental Allergy (Unknown, Uncoded 08/05/23 09:28) per allergy testing Do you need a note to return to daycare/school/sports/work: No HPI EP boil/cyst buttocks HPI Details Pt has a swelling near the anal canal. Very painful to touch. No blee ding or discharge yet. [facility] Medical History UTI (urinary tract infection) Morbid obesity with BMI of 40.0-44.9, adult Migraine with aura Surgical History History of cholecystectomy Family History Father Diabetes mellitus Mother High cholesterol HTN (hypertension) CVD (cardiovascular disease) Brother Diabetes mellitus Asthma Maternal Grandmother Diabetes mellitus Cancer Maternal Grandfather Diabetes mellitus Cancer Paternal Grandmother Unknown family medical history Paternal Grandfather No problems noted. Maternal Aunt Breast cancer Brother No problems noted. Brother No problems noted. Sister No problems noted. Daughter No problems noted. Daughter No problems noted. Daughter No problems noted. Other Mental health disorder Substance use disorder Social History Housing: Apartment Alcohol intake: never Patient Tobacco Use Status: Never used Tobacco e-Cigarette/Vaping Use: Never Used Substance Use Type: Marijuana service: No Current occupational status: unemployed Cognitive needs: No Hearing needs: No Vision needs: Yes Female Reproductive History Menstrual Age of Menarche: 11 Physical Exam Vital Signs: Last Vital Signs Temp 97.7 F 08/30/23 12:26 Pulse 81 08/30/23 12:26 BP 130/100 H 08/30/23 12:26 Pulse Ox 97 08/30/23 12:26 Oxygen Delivery Method Room Air 08/30/23 12:26 BMI result Body Mass Index 38.6 Other: Examination done with female certified medical technician in the room. MD; Large thrombosed hemrrhoid at the verge of the anal canal. Tender to touch Assessment & Plan Assessment & Plan (1) Thrombosed external hemorrhoid: Code(s): K64.5 - Perianal venous thrombosis Plan: Patient was referred to General Surgery for urgent evacuation.An appt with Dr Barr made for today. Pt was made aware. Coding Level of Care Code Est Pt Level 3 (35615) Diagnoses Thrombosed external hemorrhoid K64.5
[2023-08-30 12:26] VITALS: BP 130/100; PULSE 81; TEMP 36.5; O2SAT 97; BMI 38.6
== END 2023-08-30 13:00 | disposition home or self-care (01) ==
PROVIDERS: PCP Internal Medicine; Visit Provider Internal Medicine
DX: K64.5 Perianal venous thrombosis (principal)
CPT/HCPCS: 99213

== ENCOUNTER 2023-08-30 13:15 | Outpatient (AMB) | payer OTHER, SELFPAY ==
--- NOTE | 2023-08-30 13:17 | MHC.OFFVIS ---
Intake Vital Signs 08/30/23 13:21 Height 5 ft 3 in Weight 216 lb BMI 38.3 BP 130/96 H Blood Pressure Location Rt brachial Position Standing Pulse 81 Intake Visit Reasons: Thrombosed Hemorrhoid Intake Note: Patient sent by [facility] for thrombosed hemorrhoid. Patient c/o: pain, bleeding. On and off constipation. Page Designer Required: No Accompanied by: Self / Same As Patient Allergies apples, strawberries, kiwi, ma Allergy (Unknown, Uncoded 08/30/23 13:23) shortness of breath Cats, Dust mites Allergy (Unknown, Uncoded 08/30/23 13:23) per allergy testing Environmental Allergy (Unknown, Uncoded 08/30/23 13:23) per allergy testing Medication List - Last Reconciled 08/30/23 by Harish Morris MD albuterol sulfate 90 mcg/actuation (ProAir HFA) 1 inh inhalation QID PRN 30 days albuterol sulfate 90 mcg/actuation (Ventolin HFA) 1 inh inhalation QID PRN 30 days bupropion HCl (Wellbutrin SR) 200 mg PO DAILY buspirone 5 mg PO TID PRN 30 days duloxetine (Cymbalta) 30 mg PO DAILY 90 days epinephrine (EpiPen) 0.3 mg (0.3 mL) IM Q4H PRN hydrocodone-acetaminophen 5-325 mg 1 tab PO Q8H PRN HPI HPI Comments History of Present Illness Details 38-year-old female patient presenting with complaints of perianal pain. The pain began approximately 3 days ago and was associated with constipation. She does report some bleeding when having a bowel movement. She denies any previous similar anal symptoms. She was evaluated at the walk-in clinic and felt to have a possible thrombosed hemorrhoid. She denies previous hemorrhoidal surgery. [facility] Medical History UTI (urinary tract infection) Morbid obesity with BMI of 40.0-44.9, adult Migraine with aura Surgical History History of cholecystectomy Family History Father Diabetes mellitus Mother High cholesterol HTN (hypertension) CVD (cardiovascular disease) Brother Diabetes mellitus Asthma Maternal Grandmother Diabetes mellitus Cancer Maternal Grandfather Diabetes mellitus Cancer Paternal Grandmother Unknown family medical history Paternal Grandfather No problems noted. Maternal Aunt Breast cancer Brother No problems noted. Brother No problems noted. Sister No problems noted. Daughter No problems noted. Daughter No problems noted. Daughter No problems noted. Other Mental health disorder Substance use disorder Social History Housing: Apartment Alcohol intake: never Patient Tobacco Use Status: Never used Tobacco e-Cigarette/Vaping Use: Never Used Substance Use Type: Marijuana service: No Current occupational status: unemployed Cognitive needs: No Hearing needs: No Vision needs: Yes Female Reproductive History Menstrual Age of Menarche: 11 Review of Systems Const All systems reviewed & are unremarkable except as noted in HPI and below Physical Exam Vital Signs: Last Vital Signs Pulse 81 08/30/23 13:21 BP 130/96 H 08/30/23 13:21 BMI result Body Mass Index 38.3 Const General: cooperative and no acute distress Nutritional Appearance: well nourished Orientation/consciousness: patient oriented x3 Limitations: no limitations HEENT Head: Yes normocephalic and Yes atraumatic Ears: hearing grossly normal bilaterally Resp Effort & Inspection: normal respiratory effort, no audible wheezes, no cough and no respiratory distress Cardio Jugular venous distension: no JVD GI Other: Anal examination: External examination reveals an area of swelling in the right lateral wall which is tender to palpation. No skin necrosis or erythema is noted. No definite anal fissure noted and no perirectal abscess appreciated. Digital examination and anoscopic examination deferred due to pain Inspection: Yes normal to inspection Skin Other: Warm, dry, no rash Neuro General: patient oriented x3 Extrem General: Yes no clubbing, cyanosis or edema Assessment & Plan Assessment & Plan (1) Thrombosed external hemorrhoids: Code(s): K64.5 - Perianal venous thrombosis Plan 38-year-old female patient presenting with severe anal pain found to have a thrombosed hemorrhoid on the right anal wall. As this has been present for several days, symptoms are most likely to resolve without the need for any surgery at this time. I have asked her to return in 1 week follow-up examination which certainly call sooner if the pain is getting worse. She should continue with stool softeners and warm soaks were recommended. Medications: New hydrocodone-acetaminophen 5-325 mg Partial Fill upon patient request. 1 tab PO Q8H PRN 10 tabs 0RF pain (scale score 7-10) K64.5 - Perianal venous thrombosis Coding Level of Care Code New Pt Level 4 (36622) Diagnoses Thrombosed external hemorrhoids K64.5
[2023-08-30 13:21] VITALS: BP 130/96; PULSE 81; BMI 38.3
== END 2023-08-30 13:37 | disposition home or self-care (01) ==
PROVIDERS: PCP Internal Medicine; Referring Provider Internal Medicine; Visit Provider Surgery
DX: K64.5 Perianal venous thrombosis (principal)
CPT/HCPCS: 99204

== ENCOUNTER → 2023-08-30 13:15 | Outpatient (BNVA) | payer OTHER, SELFPAY | PROVIDERS: PCP Internal Medicine; Referring Provider Internal Medicine; Visit Provider Surgery | DX: K64.5 Perianal venous thrombosis (principal); Z90.49 Acquired absence of other specified parts of digestive tract | CPT/HCPCS: 99202 ==

== ENCOUNTER 2023-09-06 14:02 | Outpatient (AMB) | payer OTHER, SELFPAY ==
--- NOTE | 2023-09-06 14:05 | A.OFFVIS_ITS ---
Intake Vital Signs 09/06/23 14:11 Height 5 ft 3 in Weight 212 lb BMI 37.6 BP 165/97 H Blood Pressure Location Lt brachial Position Sitting Pulse 99 Intake Visit Reasons: one week f/u thrombosed Hemorrhoid Intake Note: Pt is seen in office for one wks follow up visit, following thrombosed hemorrhoid. Pt c/o: denies bleeding, feels lump is smaller, minimal discomfort Rapid Transit Operator Required: No Accompanied by: Self / Same As Patient Allergies apples, strawberries, kiwi, ma Allergy (Unknown, Uncoded 09/06/23 14:11) shortness of breath Cats, Dust mites Allergy (Unknown, Uncoded 09/06/23 14:11) per allergy testing Environmental Allergy (Unknown, Uncoded 09/06/23 14:11) per allergy testing Medication List - Last Reconciled 09/06/23 by Harish Morris MD albuterol sulfate 90 mcg/actuation (ProAir HFA) 1 inh inhalation QID PRN 30 days albuterol sulfate 90 mcg/actuation (Ventolin HFA) 1 inh inhalation QID PRN 30 days bupropion HCl (Wellbutrin SR) 200 mg PO DAILY buspirone 5 mg PO TID PRN 30 days duloxetine (Cymbalta) 30 mg PO DAILY 90 days epinephrine (EpiPen) 0.3 mg (0.3 mL) IM Q4H PRN HPI HPI Comments History of Present Illness Details 38-year-old female patient returning for follow-up examination after i nitially presenting with complaints of perianal pain 2 weeks ago.. The pain was associated with constipation. She does report some bleeding when having a bowel movement. She denies any previous similar anal symptoms. She was evaluated at the walk-in clinic and felt to have a possible thrombosed hemorrhoid. She denies previous hemorrhoidal surgery. On examination she was indeed noted to have a small thrombosed hemorrhoid which appeared to be in its weaning phase. She was treated non operatively with stool softeners, warm soaks and pain meds. She returns today reporting big improvement in her pain with no further bleeding with bowel movements. She still feels a small lump but much smaller. [facility] Medical History UTI (urinary tract infection) Morbid obesity with BMI of 40.0-44.9, adult Migraine with aura Surgical History History of cholecystectomy Family History Father Diabetes mellitus Mother High cholesterol HTN (hypertension) CVD (cardiovascular disease) Brother Diabetes mellitus Asthma Maternal Grandmother Diabetes mellitus Cancer Maternal Grandfather Diabetes mellitus Cancer Paternal Grandmother Unknown family medical history Paternal Grandfather No problems noted. Maternal Aunt Breast cancer Brother No problems noted. Brother No problems noted. Sister No problems noted. Daughter No problems noted. Daughter No problems noted. Daughter No problems noted. Other Mental health disorder Substance use disorder Social History Housing: Apartment Alcohol intake: never Patient Tobacco Use Status: Never used Tobacco e-Cigarette/Vaping Use: Never Used Substance Use Type: Marijuana service: No Current occupational status: unemployed Cognitive needs: No Hearing needs: No Vision needs: Yes Female Reproductive History Menstrual Age of Menarche: 11 Review of Systems Const All systems reviewed & are unremarkable except as noted in HPI and below Physical Exam Const General: cooperative and no acute distress Nutritional Appearance: well nourished Orientation/consciousness: patient oriented x3 Limitations: no limitations HEENT Head: Yes normocephalic and Yes atraumatic Ears: hearing grossly normal bilaterally Resp Effort & Inspection: normal respiratory effort, no audible wheezes, no cough and no respiratory distress Cardio Jugular venous distension: no JVD GI Other: Anal examination: Remnants of thrombosed hemorrhoid are identified but no tenderness to palpation. No other areas of inflammation to indicate anal fissure. No perirectal abscess. Inspection: Yes normal to inspection Skin Other: Warm, dry, no rash Neuro General: patient oriented x3 Extrem General: Yes no clubbing, cyanosis or edema Assessment & Plan Assessment & Plan (1) Thrombosed external hemorrhoids: Code(s): K64.5 - Perianal venous thrombosis Plan 38-year-old female patient returning for follow-up examination following thrombosed hemorrhoids. She is now much improved with no further pain and a small residual area of thrombosis which should continue to shrink over the next several weeks. I recommended continuing stool softeners and fiber therapy. She should follow up as needed. Coding Level of Care Code Est Pt Level 3 (68689) Diagnoses Thrombosed external hemorrhoids K64.5
[2023-09-06 14:11] VITALS: BP 165/97; PULSE 99; BMI 37.6
== END 2023-09-06 14:32 | disposition home or self-care (01) ==
PROVIDERS: PCP Internal Medicine; Visit Provider Surgery
DX: K64.5 Perianal venous thrombosis (principal)
CPT/HCPCS: 99213

== ENCOUNTER → 2023-09-06 14:02 | Outpatient (BNVA) | payer OTHER, SELFPAY | PROVIDERS: PCP Internal Medicine; Visit Provider Surgery | DX: K64.5 Perianal venous thrombosis (principal); R10.2 Pelvic and perineal pain; K59.00 Constipation, unspecified | CPT/HCPCS: 99212 ==

== ENCOUNTER 2023-11-08 10:46 | Outpatient (AMB) | payer OTHER, SELFPAY ==
--- NOTE | 2023-11-08 10:50 | A.OFFPC_ITS ---
Vital Signs 11/08/23 10:51 Height 5 ft 3 in Weight 220 lb BMI 39.0 BP 132/88 Blood Pressure Location Rt brachial Position Sitting Pulse 61 Pulse Source Pulse Oximeter Pulse Oximetry (%) 99 Oxygen Delivery Method Room Air Intake Visit Reasons: Annual PE Allergies apples, strawberries, kiwi, ma Allergy (Unknown, Uncoded 09/06/23 14:11) shortness of breath Cats, Dust mites Allergy (Unknown, Uncoded 09/06/23 14:11) per allergy testing Environmental Allergy (Unknown, Uncoded 09/06/23 14:11) per allergy testing Medication List - Last Reconciled 11/08/23 by Jadyn Tinoco MD albuterol sulfate 90 mcg/actuation (Ventolin HFA) 1 inh inhalation QID PRN 30 days albuterol sulfate 90 mcg/actuation (ProAir HFA) 1 inh inhalation QID PRN 30 days bupropion HCl SR (Wellbutrin SR) 200 mg PO DAILY buspirone 5 mg PO TID PRN 30 days duloxetine (Cymbalta) 30 mg PO DAILY 90 days epinephrine (EpiPen) 0.3 mg (0.3 mL) IM Q4H PRN Tobacco use date assessed: 11/08/23 Dental Screening Dental Screen Date: 11/08/23 Did you have a dental visit in the last 12 months?: Yes Did you have a dental problem in the last 6 months where you did not have access to dental care?: No Was dental information given to patient?: Patient has dentist HPI Annual PE HPI Details Patient is a 38-year-old came today for physical examination Patient is in need of OBGYN visit, referral placed Patient has impaired fasting sugar And she is prehypertensive We talked about both of these medical issues I would recommend that she lose some weight, her BMI is elevated at 39 Also observed no salt diet Get a blood pressure monitor and start monitoring blood pressure at home. Lab order placed to be done fasting She is complaining of feeling irritated vaginally with fishy odor I have sent metronidazole vaginal cream for the patient. Depression is stable Patient is taking Wellbutrin, buspirone, and Cymbalta and is doing well She is currently in therapy and is waiting to see psychiatrist. Follow-up 3 months while psychiatric medications through PCP office [facility] Medical History UTI (urinary tract infection) Morbid obesity with BMI of 40.0-44.9, adult Migraine with aura Surgical History History of cholecystectomy Family History Father Diabetes mellitus Mother High cholesterol HTN (hypertension) CVD (cardiovascular disease) Brother Diabetes mellitus Asthma Maternal Grandmother Diabetes mellitus Cancer Maternal Grandfather Diabetes mellitus Cancer Paternal Grandmother Unknown family medical history Paternal Grandfather No problems noted. Maternal Aunt Breast cancer Brother No problems noted. Brother No problems noted. Sister No problems noted. Daughter No problems noted. Daughter No problems noted. Daughter No problems noted. Other Mental health disorder Substance use disorder Social History Housing: Apartment Alcohol intake: never Patient Tobacco Use Status: Never used Tobacco e-Cigarette/Vaping Use: Never Used Substance Use Type: Marijuana service: No Current occupational status: unemployed Cognitive needs: No Hearing needs: No Vision needs: Yes Female Reproductive History Menstrual Age of Menarche: 11 Questionnaire PHQ-9 Over the last 2 weeks, how often have you been bothered by any of the following problems? 1. Little interest or pleasure in doing things: several days 2. Feeling down, depressed, or hopeless: several days 3. Trouble falling or staying asleep, or sleeping too much: more than half the days 4. Feeling tired or having little energy: more than half the days 5. Poor appetite or overeating: more than half the days 6. Feeling bad about yourself - or that you are a failure or have let yourself or your family down: several days 7. Trouble concentrating on things, such as reading the newspaper or watching television: not at all 8. Moving or speaking so slowly that other people could have noticed. Or the opposite - being so fidgety or restless that you have been moving around a lot more than usual: not at all 9. Thoughts that you would be better off or of hurting yourself in some way: not at all Total score: 9 Depression Screening Interpretation: Negative Depression Screening Done: Yes 07521 - PHQ-9 Billing: Yes Source: Developed by Drs. Jeremias Young, Manny Raza and colleagues, with an educational pacheco from [employer]. Thrive Questionnaire Date Thrive assessed: 11/08/23 I am a: Patient What is your living situation today?: I have a steady place to live Within the past 12 months, did the food you bought not last and you didn't have the money to get more?: Never true Within the past 12 months, did you worry whether your food would run out before you got money to buy more?: Never true Do you have trouble paying for medicines?: No Do you have trouble getting transportation to medical appointments?: No Do you have trouble paying your heating and electricity bill?: No Do you have trouble taking care of your child, family member or friend?: No Do you have trouble with day-to-day activities such as bathing, preparing meals, shopping, managing finances, etc.?: No Are you currently unemployed and looking for a job?: No Are you interested in more education?: No Please select the resources that you would like help with: None Currently or been in a relationship where the following occur: no concerns reported THRIVE Score: 0 AUDIT C Alcohol Use Questionnaire (AUDIT-C) 1. How often do you have a drink containing alcohol?: Never 3. How often do you have six or more drinks on one occasion?: Never Total Score: 0 Score Reviewed/Action Taken: Yes CHAU-7 AMB Questionnaire CHAU-7 Date CHAU - 7 assessed: 11/08/23 Feeling nervous, anxious, or on edge: 1 = Several days Not being able to stop or control worryin = Several days Worrying too much about different things: 1 = Several days Trouble relaxin = Several days Being so restless that it is hard to sit still: 1 = Several days Becoming easily annoyed or irritable: 1 = Several days Feeling afraid as if something awful might happen: 0 = Not at all Total CHAU-7 score (0-4 normal; 5-9 mild; 10-14 moderate; 15-21 severe): 6 Source: Developed by Drs. Jeremias Young, Manny Raza and colleagues, with an educational pacheco from [employer]. CHAU-7 Assessment Billing CHAU-7 Assessment Tool: CHAU-7 Assessment 01442 Review of Systems Const Denies chills, Denies fever(s) and Denies headache(s) Eyes Denies blurry vision ENT Denies headache(s), Denies nasal discharge, Denies nasal obstruction, Denies odynophagia and Denies sinus pain Card Denies chest pain at rest and Denies chest pain with activity Resp Denies cough and Denies hemoptysis GI Denies diarrhea, Denies odynophagia, Denies vomiting and Denies hematemesis Reports as per HPI Musc Denies abnormal gait Skin/Breast Reports as per HPI Neuro Denies Neuro-related abnormal movements, Denies Abnormal speech present, Denies abnormal gait, Denies headache(s) and Denies Sensory deficit (Neuro) Psych Denies mood swings and Denies paranoia Endo Reports as per HPI Sedrick/Lymph Reports as per HPI Aller/Immun Reports as per HPI Physical exam (Primary Care) Vital Signs: Last Vital Signs Pulse 61 11/08/23 10:51 BP 132/88 11/08/23 10:51 Pulse Ox 99 11/08/23 10:51 Oxygen Delivery Method Room Air 11/08/23 10:51 BMI result Body Mass Index 39.0 Tobacco/Smoking Status: Tobacco use Status Tobacco use date assessed 11/08/23 11/08/23 10:53 Patient Tobacco Use Status Never used Tobacco 11/08/23 10:53 e-Cigarette/Vaping Use Never Used 11/08/23 10:53 Depression Screening Interpretation: Negative Thrive Assessment: Date of Thrive Assessment Date Thrive assessed 01/21/23 11/08/23 10:53 Currently or been in a relationship where the following occur: no concerns reported Const General: cooperative, comfortable and no acute distress Orientation/consciousness: patient oriented x3 HENMT Head: Yes normocephalic and Yes atraumatic Eyes General: appearance normal, both eyes and all related structures Pupils: Equal, round and reactive pupils present EOM: EOMs intact bilaterally Neck Neck: Yes supple and No lymphadenopathy Thyroid: Thyroid normal Lymphatic: no lymphadenopathy noted Chest Breast/axilla palpation: normal palpation of the breasts Resp Effort & Inspection: normal respiratory effort and able to speak in complete sentences Auscultation: clear to auscultation bilaterally Cardio Heart sounds: S1 normal heart sound present and S2 normal heart sound present GI Palpation (GI): Soft to palpation and nontender Auscultation: normal bowel sounds General: Yes no CVA tenderness Back/Spine/Pelvis Back: no CVA tenderness Skin General skin exam: elasticity normal and turgor normal Neuro General: patient oriented x3 and gait normal Cranial nerves: Yes Equal, round and reactive pupils present Speech: No Abnormal speech present Sensory Exam: No Sensory deficit (Neuro) Coordination: tandem gait normal and Romberg test negative Extrem General: Yes normal exam except as noted and No edema Assessment and Plan Assessment & Plan (1) Encounter for general adult medical examination with abnormal findings: Code(s): Z00.01 - Encounter for general adult medical examination with abnormal findings (2) Vulvar itching: Code(s): L29.2 - Pruritus vulvae (3) Anxiety, generalized: Code(s): F41.1 - Generalized anxiety disorder (4) Vaginal odor: Code(s): N89.8 - Other specified noninflammatory disorders of vagina (5) Major depression, recurrent: Code(s): F33.9 - Major depressive disorder, recurrent, unspecified Qualifiers: Active/Remission status: in partial remission Qualified Code(s): F33.41 - Major depressive disorder, recurrent, in partial remission (6) Obesity due to excess calories: Code(s): E66.09 - Other obesity due to excess calories Qualifiers: Obesity classification: adult class 2 (BMI 35 - 39.9) Serious obesity comorbidity presence: without serious comorbidity Body mass index: BMI 38.0-3 8.9 Qualified Code(s): E66.09 - Other obesity due to excess calories; Z68.38 - Body mass index [BMI] 38.0-38.9, adult (7) Prediabetes: Code(s): R73.03 - Prediabetes (8) Prehypertension: Code(s): R03.0 - Elevated blood-pressure reading, without diagnosis of hypertension Plan Patient is a 38-year-old came today for physical examination Patient is in need of OBGYN visit, referral placed Patient has impaired fasting sugar And she is prehypertensive We talked about both of these medical issues I would recommend that she lose some weight, her BMI is elevated at 39 Also observed no salt diet Get a blood pressure monitor and start monitoring blood pressure at home. Lab order placed to be done fasting She is complaining of feeling irritated vaginally with fishy odor I have sent metronidazole vaginal cream for the patient. Depression is stable Patient is taking Wellbutrin, buspirone, and Cymbalta and is doing well She is currently in therapy and is waiting to see psychiatrist. Follow-up 3 months while psychiatric medications through PCP office Orders: Orders Comprehensive [place]. Panel Fast Today E66.09 - Other obesity due to excess calories, F33.41 - Major depressive disorder, recurrent, in partial remission, F41.1 - Generalized anxiety disorder, L29.2 - Pruritus vulvae, R03.0 - Elevated blood-pressure reading, without diagnosis of hypertension, R73.03 - Prediabetes, Z00.01 - Encounter for general adult medical examination with abnormal findings, Z68.38 - Body mass index [BMI] 38.0-38.9, adult Lipid Panel Today E66.09 - Other obesity due to excess calories, F33.41 - Major depressive disorder, recurrent, in partial remission, F41.1 - Generalized anxiety disorder, L29.2 - Pruritus vulvae, R03.0 - Elevated blood-pressure reading, without diagnosis of hypertension, R73.03 - Prediabetes, Z00.01 - Encounter for general adult medical examination with abnormal findings, Z68.38 - Body mass index [BMI] 38.0-38.9, adult TSH reflex Free T4 Today E66.09 - Other obesity due to excess calories, F33.41 - Major depressive disorder, recurrent, in partial remission, F41.1 - Generalized anxiety disorder, L29.2 - Pruritus vulvae, R03.0 - Elevated blood- pressure reading, without diagnosis of hypertension, R73.03 - Prediabetes, Z00.01 - Encounter for general adult medical examination with abnormal findings, Z68.38 - Body mass index [BMI] 38.0-38.9, adult Complete Blood Count Auto Diff Today E66.09 - Other obesity due to excess brittaney ories, F33.41 - Major depressive disorder, recurrent, in partial remission, F41.1 - Generalized anxiety disorder, L29.2 - Pruritus vulvae, R03.0 - Elevated blood-pressure reading, without diagnosis of hypertension, R73.03 - Prediabetes, Z00.01 - Encounter for general adult medical examination with abnormal findings, Z68.38 - Body mass index [BMI] 38.0-38.9, adult Vitamin D 25-OH (D2 and D3) Today E66.09 - Other obesity due to excess calories, F33.41 - Major depressive disorder, recurrent, in partial remission, F41.1 - Generalized anxiety disorder, L29.2 - Pruritus vulvae, R03.0 - Elevated blood-pressure reading, without diagnosis of hypertension, R73.03 - Prediabetes, Z00.01 - Encounter for general adult medical examination with abnormal findings, Z68.38 - Body mass index [BMI] 38.0-38.9, adult Hemoglobin A1c Today E66.09 - Other obesity due to excess calories, F33.41 - Major depressive disorder, recurrent, in partial remission, F41.1 - Generalized anxiety disorder, L29.2 - Pruritus vulvae, R03.0 - Elevated blood-pressure reading, without diagnosis of hypertension, R73.03 - Prediabetes, Z00.01 - Encounter for general adult medical examination with abnormal findings, Z68.38 - Body mass index [BMI] 38.0-38.9, adult Referrals NATURAL RESOURCES PROFESSOR Referral Z01.419 - Encounter for gynecological examination (general) (routine) without abnormal findings Medications: New metronidazole 0.75%(37.5mg/5gram) 1 appful vaginal DAILY 5 days 70 grams 0RF Coding Level of Care Code Est Pt Level 3 (27698) Est Pt Prev Care 18-39y(99660) Diagnoses Encounter for general adult medical examination with abnormal findings Z00.01 Vulvar itching L29.2 Anxiety, generalized F41.1 Vaginal odor N89.8 Recurrent major depressive disorder, in partial remission F33.41 Active/Remission status: in partial remission Class 2 obesity due to excess calories without serious comorbidity with body mass index (BMI) of 38.0 to 38.9 in adult E66.09; Z68.38 Obesity classification: adult class 2 (BMI 35 - 39.9) Serious obesity comorbidity presence: without serious comorbidity Body mass index: BMI 38.0-38.9 Prediabetes R73.03 Prehypertension R03.0 Additional Codes CHAU-7 Assessment Billing - CHAU-7 Assessment Tool: CHAU-7 Assessment 48379 ([id number])
[2023-11-08 10:51] VITALS: BP 132/88; PULSE 61; O2SAT 99; BMI 39.0
== END 2023-11-08 11:10 | disposition home or self-care (01) ==
PROVIDERS: PCP Internal Medicine; Visit Provider Internal Medicine
DX: Z00.01 Encounter for general adult medical examination with abnormal findings (principal); L29.2 Pruritus vulvae; F33.41 Major depressive disorder, recurrent, in partial remission; F41.1 Generalized anxiety disorder; N89.8 Other specified noninflammatory disorders of vagina; E66.09 Other obesity due to excess calories; Z68.38 Body mass index [BMI] 38.0-38.9, adult; R73.03 Prediabetes; R03.0 Elevated blood-pressure reading, without diagnosis of hypertension
CPT/HCPCS: 99213; 99395

== ENCOUNTER 2023-11-25 11:52 | Emergency (ER) | payer OTHER, SELFPAY ==
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
[2023-11-25 12:19] VITALS: BP 140/94; PULSE 76; RESP 16; TEMP 36.9; O2SAT 97; BMI 38.8
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
[2023-11-25] MEDS: Ondansetron ODT 4 MG TAB.RAPDIS TRANSLINGU (14:02)
[2023-11-25] MEDS: Acetaminophen 325 MG TABLET 975 MG PO (14:04)
[2023-11-25 14:46] VITALS: BP 132/75; PULSE 64; RESP 18; TEMP 36.4; O2SAT 100
[2023-11-25 16:10] VITALS: BP 123/76; PULSE 60; RESP 16; TEMP 36.2; O2SAT 100
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
[2023-11-25 16:38] VITALS: BP 123/76; PULSE 60; RESP 16; TEMP 36.2; O2SAT 100
== END 2023-11-25 16:38 | disposition home or self-care (01) ==
PROVIDERS: Emergency Provider Emergency Medicine; PCP Internal Medicine
DX: S13.4XXA Sprain of ligaments of cervical spine, initial encounter (principal); R51.9 Headache, unspecified; M54.2 Cervicalgia; M54.50 Low back pain, unspecified; V43.52XA Car driver injured in collision with other type car in traffic accident, initial encounter; Y93.9 Activity, unspecified; Y92.410 Unspecified street and highway as the place of occurrence of the external cause; Y99.8 Other external cause status; Z79.899 Other long term (current) drug therapy
CPT/HCPCS: 70450; 72100; 72125; 99283; 99284

== ENCOUNTER 2023-11-28 08:50 | Outpatient (AMB) | payer OTHER, SELFPAY ==
[2023-11-28 09:00] VITALS: BP 122/82; PULSE 76; TEMP 36.3; O2SAT 99; BMI 38.8
--- NOTE | 2023-11-28 09:00 | AM.OFFWIN_ITS ---
Intake Vital Signs 11/28/23 09:00 Height 5 ft 3 in Weight 219 lb BMI 38.8 BP 122/82 Blood Pressure Location Lt brachial Position Sitting Pulse 76 Pulse Source Pulse Oximeter Temp 97.3 F Temp Source Temporal Artery Scan Pulse Oximetry (%) 99 Oxygen Delivery Method Room Air Intake Visit Reasons: EP- ?UTI Intake Note: pt is here today for UTI started yesterday Patient Tobacco Use Status: Never used Tobacco Allergies apples, strawberries, kiwi, ma Allergy (Unknown, Uncoded 11/28/23 09:09) shortness of breath Cats, Dust mites Allergy (Unknown, Uncoded 11/28/23 09:09) per allergy testing Environmental Allergy (Unknown, Uncoded 11/28/23 09:09) per allergy testing Do you need a note to return to daycare/school/sports/work: No HPI HPI Comments History of Present Illness Details Patient presents to urgent care today for sick visit Endorses burning with urgency, increased frequency and suprapubic abdominal discomfort for last 2 days. Patient reports has had UTI in the past, this feels the same Denies back pain, hematuria, fevers or vomiting. Denies concern for STI Denies vaginal discharge or vaginal bleeding PFSH Medical History UTI (urinary tract infection) Morbid obesity with BMI of 40.0-44.9, adult Migraine with aura Surgical History History of cholecystectomy Family History Father Diabetes mellitus Mother High cholesterol HTN (hypertension) CVD (cardiovascular disease) Brother Diabetes mellitus Asthma Maternal Grandmother Diabetes mellitus Cancer Maternal Grandfather Diabetes mellitus Cancer Paternal Grandmother Unknown family medical history Paternal Grandfather No problems noted. Maternal Aunt Breast cancer Brother No problems noted. Brother No problems noted. Sister No problems noted. Daughter No problems noted. Daughter No problems noted. Daughter No problems noted. Other Mental health disorder Substance use disorder Social History Housing: Apartment Alcohol intake: never Patient Tobacco Use Status: Never used Tobacco e-Cigarette/Vaping Use: Never Used Substance Use Type: Marijuana service: No Current occupational status: unemployed Cognitive needs: No Hearing needs: No Vision needs: Yes Female Reproductive History Menstrual Age of Menarche: 11 Review of Systems Const All systems reviewed & are unremarkable except as noted in HPI and below Physical Exam Vital Signs: Last Vital Signs Temp 97.3 F 11/28/23 09:00 Pulse 76 11/28/23 09:00 BP 122/82 11/28/23 09:00 Pulse Ox 99 11/28/23 09:00 Oxygen Delivery Method Room Air 11/28/23 09:00 BMI result Body Mass Index 38.8 General: awake, alert, oriented. Answers questions appropriately. Fully engaged in examination. Skin: warm, dry, intact HEENT: Normocephalic. Hearing intact. Cardiac: External chest normal in appearance. Respiratory: No cough, audible wheezing or stridor. Abdomen: without gross distension. soft, nontender. no guarding. no CVA tenderness MS: No obvious swelling or deformities. Neurological: Oriented to person, place, time and situation. Thought process intact. No gait abnormalities appreciated. Psychiatric: Appropriate mood and affect. Good judgment and insight. Results AMB Urinalysis, Automated UA Leukoctes 15 Judit/uL Last Edit by TERESE Ratliff on 11/28/23 09:40 UA Nitrite Negative Last Edit by TERESE Ratliff on 11/28/23 09:40 UA Urobilinogen 0.2 mg/dL Last Edit by TERESE Ratliff on 11/28/23 09:4 0 UA Protein 0 mg/dL Last Edit by TERESE Ratliff on 11/28/23 09:40 UA pH 7.0 Last Edit by TERESE Ratliff on 11/28/23 09:40 UA Blood 25 Jon/uL Last Edit by TERESE Ratliff on 11/28/23 09:40 UA Specific [place] 1.015 Last Edit by TERESE Ratliff on 11/28/23 09: 40 UA Ketone Negative Last Edit by TERESE Ratliff on 11/28/23 09:40 UA Bilirubin 0 mg/dL Last Edit by TERESE Ratliff on 11/28/23 09:40 UA Glucose 0 mg/dL Last Edit by TERESE Ratliff on 11/28/23 09:40 Results Reviewed Results Reviewed: Laboratory Last Values Urine pH (Auto) 7.0 11/28/23 09:39 Specific [place] (Auto) 1.015 11/28/23 09:39 Urine Protein (Auto) 0 mg/dL 11/28/23 09:39 Glucose (UA)(Auto) 0 mg/dL 11/28/23 09:39 Urine Ketones (Auto) Negative 11/28/23 09:39 Urine Blood (Auto) 25 Jon/uL 11/28/23 09:39 Urine Nitrite (Auto) Negative 11/28/23 09:39 Urine Bilirubin (Auto) 0 mg/dL 11/28/23 09:39 Urine Urobilinogen (Auto) 0.2 mg/dL 11/28/23 09:39 Leukocyte Esterase (Auto) 15 Judit/uL 11/28/23 09:39 Assessment & Plan Assessment & Plan (1) UTI (urinary tract infection): Code(s): N39.0 - Urinary tract infection, site not specified Qualifiers: Hematuria presence: with hematuria Urinary tract infection type: acute cystitis Qualified Code(s): N30.01 - Acute cystitis with hematuria Plan UA reviewed: + leuks Take antibiotics and Pyridium as directed. Increase fluid intake. Recommend follow up with ob/gyn Return to clinic for new fever or back pain or if symptoms persist. Orders: Orders AMB Urinalysis Automated Today Z13.9 - Encounter for screening, unspecified Medications: New nitrofurantoin monohyd/m-cryst 100 mg (Macrobid) must administer with a meal/food 100 mg PO Q12H 10 caps 0RF 5 days phenazopyridine (Pyridium) 100 mg PO TID PRN 6 tabs 0RF pain 6 doses Coding Level of Care Code Est Pt Level 3 (97953) Diagnoses Acute cystitis with hematuria N30.01 Hematuria presence: with hematuria Urinary tract infection type: acute cystitis
== END 2023-11-28 09:53 | disposition home or self-care (01) ==
PROVIDERS: PCP Internal Medicine; Visit Provider Registered Nurse Emergency
DX: N30.01 Acute cystitis with hematuria (principal)
CPT/HCPCS: 81003; 99213

== ENCOUNTER 2023-12-06 10:41 | Outpatient (AMB) | payer OTHER, SELFPAY ==
[2023-12-06 11:00] VITALS: BP 148/94; PULSE 86; O2SAT 96; BMI 39.0
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
== END 2023-12-06 11:17 | disposition home or self-care (01) ==
PROVIDERS: PCP Internal Medicine; Visit Provider Internal Medicine
DX: S46.811A Strain of other muscles, fascia and tendons at shoulder and upper arm level, right arm, initial encounter (principal); V89.2XXA Person injured in unspecified motor-vehicle accident, traffic, initial encounter; S39.012A Strain of muscle, fascia and tendon of lower back, initial encounter
CPT/HCPCS: 99214

== ENCOUNTER 2024-02-07 09:59 | Outpatient (AMB) | payer OTHER, SELFPAY ==
[2024-02-07 10:01] VITALS: BP 148/110; PULSE 88; O2SAT 98; BMI 39.7
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
== END 2024-02-07 10:22 | disposition home or self-care (01) ==
PROVIDERS: PCP Internal Medicine; Visit Provider Internal Medicine
DX: M54.16 Radiculopathy, lumbar region (principal); V89.2XXA Person injured in unspecified motor-vehicle accident, traffic, initial encounter; R03.0 Elevated blood-pressure reading, without diagnosis of hypertension; Z04.3 Encounter for examination and observation following other accident
CPT/HCPCS: 99214

== ENCOUNTER 2024-02-14 11:59 | Outpatient (REF) | payer OTHER, SELFPAY ==
[2024-02-14 13:24] LABS: MANUAL DIFF FLAG NO
[2024-02-14 13:38] LABS: Basophils Percent Auto 0.4 % (0-2); Eosinophils Absolute Auto 0.5 X10*3/uL (0.0-0.4); Eosinophils Percent Auto 6.9 % (0-4); Hematocrit 40.4 % (37.0-47.0); Hemoglobin 13.8 g/dl (12.0-16.0); Imm Gran Abs Auto 0.02 X10*3/uL (0.00-0.03); Imm Gran Pct Auto 0.3 % (0.0-0.4); Lymphocytes Absolute Auto 2.5 X10*3/uL (1.2-4.9); Lymphocytes Percent Auto 37.9 % (20-40); Mean Corpuscular HGB Conc 34.2 g/dl (31.0-35.0); Mean Corpuscular Hemoglobin 32.1 pg (27.0-33.0); Mean Platelet Volume 10.7 fL (9.4-12.3); Monocytes Absolute Auto 0.5 X10*3/uL (0.1-1.2); Monocytes Percent Auto 6.9 % (2-11); Neutrophils Absolute Auto 3.2 x10*3/uL (2.0-8.3); Neutrophils Percent Auto 47.6 % (45-73); Platelet Count 269 X10*3/uL (160-400); Red Cell Distribution Width 12.1 % (11.0-16.0); White Blood Count 6.7 X10*3/uL (4.8-10.8)
[2024-02-14 13:50] LABS: Estimated Average Glucose 91 mg/dL; Hemoglobin A1c % 4.8 % (<6.0)
[2024-02-14 14:07] LABS: Alanine Aminotransferase 12 U/L (0-31); Albumin Level 4.3 g/dL (3.5-5.0); Alkaline Phosphatase 65 U/L (39-117); Anion Gap 10 (12-20); Aspartate Amino Transferase 12 U/L (5-31); Bilirubin Total 0.6 mg/dL (0.0-1.0); Blood Urea Nitrogen 9 mg/dL (9-16); Calcium 9.1 mg/dL (8.4-10.2); Carbon Dioxide 26 mmol/L (22-29); Chloride 108 mmol/L (96-108); Cholesterol 188 mg/dL (<200); Estimated Glomerular Filt Rate > 60; Glucose Fasting 94 mg/dL (60-99); HDL Cholesterol 47 mg/dL (>40); LDL Cholesterol Calculated 125 mg/dL (<100); Potassium 4.2 mmol/L (3.3-5.1); Sodium 140 mmol/L (135-145); TSH reflex Free T4 1.44 uIU/mL (0.32-4.0); Total Protein 7.1 g/dL (6.5-8.0); Triglycerides 84 mg/dL (<150)
[2024-02-18 14:13] LABS: Vitamin D 25-OH, D2 <4 ng/mL; Vitamin D 25-OH, D3 27 ng/mL; Vitamin D 25-OH, Total 27 ng/mL (30-100)
== END 2024-02-14 12:00 | disposition home or self-care (01) ==
LOC: HO.HMGCLDS 11:59
PROVIDERS: PCP Internal Medicine; Visit Provider Internal Medicine
DX: Z00.01 Encounter for general adult medical examination with abnormal findings (principal); L29.2 Pruritus vulvae; F41.1 Generalized anxiety disorder; F33.41 Major depressive disorder, recurrent, in partial remission; E66.09 Other obesity due to excess calories; Z68.38 Body mass index [BMI] 38.0-38.9, adult; R73.03 Prediabetes; R03.0 Elevated blood-pressure reading, without diagnosis of hypertension
CPT/HCPCS: 36415; 80053; 80061; 82306; 83036; 84443; 85025

== ENCOUNTER 2024-02-16 10:00 | Outpatient (RCR) | payer OTHER, SELFPAY ==
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
== END 2024-03-19 09:14 | disposition home or self-care (01) ==
LOC: HO.PTCHIC 10:00
PROVIDERS: PCP Internal Medicine; Visit Provider Internal Medicine
DX: S46.811D Strain of other muscles, fascia and tendons at shoulder and upper arm level, right arm, subsequent encounter (principal); S39.012D Strain of muscle, fascia and tendon of lower back, subsequent encounter; V89.2XXD Person injured in unspecified motor-vehicle accident, traffic, subsequent encounter
CPT/HCPCS: 97014; 97110; 97140; 97161

== ENCOUNTER 2024-03-01 08:42 | Outpatient (AMB) | payer OTHER, SELFPAY ==
--- NOTE | 2024-03-01 08:41 | A.OFFPC_ITS ---
Intake Visit Reasons: 3 week Allergies apples, strawberries, kiwi, ma Allergy (Unknown, Uncoded 03/01/24 08:42) shortness of breath Cats, Dust mites Allergy (Unknown, Uncoded 03/01/24 08:42) per allergy testing Environmental Allergy (Unknown, Uncoded 03/01/24 08:42) per allergy testing Medication List - Last Reconciled 03/01/24 by Jadyn Tinoco MD acetaminophen (Tylenol Extra Strength) 1,000 mg (2 x 500 mg) PO QID PRN albuterol sulfate 90 mcg/actuation (Ventolin HFA) 1 inh inhalation QID PRN 30 days albuterol sulfate 90 mcg/actuation (ProAir HFA) 1 inh inhalation QID PRN 30 days baclofen 10 mg PO BEDTIME bupropion HCl SR (Wellbutrin SR) 200 mg PO DAILY duloxetine (Cymbalta) 30 mg PO DAILY 90 days epinephrine (EpiPen) 0.3 mg (0.3 mL) IM Q4H PRN gabapentin 300 mg PO BEDTIME Tobacco use date assessed: 02/07/24 Dental Screening Dental Screen Date: 02/07/24 HPI 3 week HPI Details patient was started on Gabapentine to help her with lower back pain and anxiety she is feeling much better, taking it at night also continue to take wellbutrin and duloxetine for depression baclofen 10 mg at night she has apt coming up in house end of [facility] Medical History UTI (urinary tract infection) Morbid obesity with BMI of 40.0-44.9, adult Migraine with aura Surgical History History of cholecystectomy Family History Father Diabetes mellitus Mother High cholesterol HTN (hypertension) CVD (cardiovascular disease) Brother Diabetes mellitus Asthma Maternal Grandmother Diabetes mellitus Cancer Maternal Grandfather Diabetes mellitus Cancer Paternal Grandmother Unknown family medical history Paternal Grandfather No problems noted. Maternal Aunt Breast cancer Brother No problems noted. Brother No problems noted. Sister No problems noted. Daughter No problems noted. Daughter No problems noted. Daughter No problems noted. Other Mental health disorder Substance use disorder Social History Housing: Apartment Alcohol intake: never Patient Tobacco Use Status: Never used Tobacco e-Cigarette/Vaping Use: Never Used Substance Use Type: Marijuana service: No Current occupational status: unemployed Cognitive needs: No Hearing needs: No Vision needs: Yes Female Reproductive History Menstrual Age of Menarche: 11 Questionnaire Thrive Questionnaire Date Thrive assessed: 02/07/24 CHAU-7 AMB Questionnaire CHAU-7 Date CHAU - 7 assessed: 02/07/24 Source: Developed by Drs. Jeremias Young, Jeri Howe, Manny Naqvi and colleagues, with an educational pacheco from [employer]. Review of Systems Const Denies chills and Denies fever(s) ENT Denies epistaxis and Denies nasal discharge Card Denies chest pain Resp Denies chest congestion, Denies cough and Denies hemoptysis GI Denies diarrhea and Denies nausea Skin/Breast Denies rash Neuro Reports no additional complaints Psych Reports no additional complaints Endo Reports no additional complaints Physical exam (Primary Care) Tobacco/Smoking Status: Tobacco use Status Tobacco use date assessed 02/07/24 03/01/24 08:43 Patient Tobacco Use Status Never used Tobacco 03/01/24 08:43 e-Cigarette/Vaping Use Never Used 03/01/24 08:43 Thrive Assessment: Date of Thrive Assessment Date Thrive assessed 02/07/24 03/01/24 08:43 Telehealth Telehealth Telehealth Platform: [facility] Location of provider rendering services: practice address Location of patient: address on file Patient Identification confirmed using: Name, : Yes Telehealth method: video Patient verbally consented to treatment: Yes Patient verbally consented to billing insurance company: Yes Patient informed of any privacy concerns related to visit: Yes Minutes spent on Phone/Video with Pt.: 13 Assessment and Plan Assessment & Plan (1) Right lumbar radiculitis: Code(s): M54.16 - Radiculopathy, lumbar region (2) Anxiety, generalized: Code(s): F41.1 - Generalized anxiety disorder (3) Major depression, recurrent: Code(s): F33.9 - Major depressive disorder, recurrent, unspecified Qualifiers: Active/Remission status: in partial remission Qualified Code(s): F33.41 - Major depressive disorder, recurrent, in partial remission Plan patient was started on Gabapentine to help her with lower back pain and anxiety she is feeling much better, taking it at night also continue to take wellbutrin and duloxetine for depression baclofen 10 mg at night she has apt coming up in house end of Nov Medications: Refilled gabapentin 300 mg PO BEDTIME 30 caps 0RF Coding Level of Care Code Tele Est Pt Level 3 (06571) Diagnoses Right lumbar radiculitis M54.16 Anxiety, generalized F41.1 Recurrent major depressive disorder, in partial remission F33.41 Active/Remission status: in partial remission
== END 2024-03-01 13:37 | disposition home or self-care (01) ==
LOC: HO.HMCC 08:42
PROVIDERS: PCP Internal Medicine; Visit Provider Internal Medicine
DX: F41.1 Generalized anxiety disorder (principal); F33.41 Major depressive disorder, recurrent, in partial remission

== ENCOUNTER → 2024-03-01 08:42 | Outpatient (BNVA) | payer OTHER, SELFPAY | PROVIDERS: PCP Internal Medicine; Visit Provider Internal Medicine | DX: M54.16 Radiculopathy, lumbar region (principal) ==

== ENCOUNTER 2024-03-01 09:43 | Outpatient (AMB) | payer OTHER, SELFPAY ==
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
== END 2024-03-01 13:37 | disposition home or self-care (01) ==
LOC: HO.HMCC 09:43
PROVIDERS: PCP Internal Medicine; Visit Provider Internal Medicine
DX: M54.16 Radiculopathy, lumbar region (principal); Z04.3 Encounter for examination and observation following other accident

== ENCOUNTER 2024-05-18 10:33 | Outpatient (REF) | payer OTHER, SELFPAY ==
[2024-05-19 13:08] LABS: Bacterial Vaginosis PCR POSITIVE (Negative); Candida Group PCR NOT DETECTED (Not Detect); Candida glab krusei PCR NOT DETECTED (Not Detect); Trichomonas vaginalis PCR DETECTED (Not Detect)
== END 2024-05-18 10:34 | disposition home or self-care (01) ==
LOC: HO.LAB 10:33
PROVIDERS: PCP Internal Medicine; Visit Provider Internal Medicine
DX: N89.8 Other specified noninflammatory disorders of vagina (principal); M54.16 Radiculopathy, lumbar region; S39.012A Strain of muscle, fascia and tendon of lower back, initial encounter; F33.41 Major depressive disorder, recurrent, in partial remission; F41.1 Generalized anxiety disorder; X58.XXXA Exposure to other specified factors, initial encounter; Y93.9 Activity, unspecified; Y92.9 Unspecified place or not applicable; Y99.9 Unspecified external cause status
CPT/HCPCS: 0352U; 81003; 99212

== ENCOUNTER 2024-05-18 10:33 | Outpatient (AMB) | payer OTHER, SELFPAY ==
--- NOTE | 2024-05-18 10:36 | A.OFFPC_ITS ---
Vital Signs 05/18/24 10:38 Height 5 ft 3 in Weight 217 lb 4 oz BMI 38.5 BP 132/84 Blood Pressure Location Rt brachial Position Sitting Pulse 77 Pulse Source Pulse Oximeter Pulse Oximetry (%) 97 Oxygen Delivery Method Room Air Intake Visit Reasons: 3 mth f/u Allergies apples, strawberries, kiwi, ma Allergy (Unknown, Uncoded 03/01/24 08:42) shortness of breath Cats, Dust mites Allergy (Unknown, Uncoded 03/01/24 08:42) per allergy testing Environmental Allergy (Unknown, Uncoded 03/01/24 08:42) per allergy testing Medication List - Last Reconciled 05/18/24 by Jadyn Tinoco MD acetaminophen (Tylenol Extra Strength) 1,000 mg (2 x 500 mg) PO QID PRN albuterol sulfate 90 mcg/actuation (Ventolin HFA) 1 inh inhalation QID PRN 30 days albuterol sulfate 90 mcg/actuation (ProAir HFA) 1 inh inhalation QID PRN 30 days baclofen 10 mg PO BEDTIME bupropion HCl SR (Wellbutrin SR) 200 mg PO DAILY duloxetine (Cymbalta) 30 mg PO DAILY 90 days epinephrine (EpiPen) 0.3 mg (0.3 mL) IM Q4H PRN gabapentin 300 mg PO BEDTIME Tobacco use date assessed: 05/18/24 Dental Screening Dental Screen Date: 05/18/24 Did you have a dental visit in the last 12 months?: Yes Did you have a dental problem in the last 6 months where you did not have access to dental care?: No Was dental information given to patient?: Patient has dentist HPI 3 mth f/u HPI Details Chief Complaint Persistent severe low back pain. Assessment and Plan 38-year-old female with a history of chr onic low back pain and cervicalgia presenting with persistent severe back pain possibly aggravated by physical job requirements. The patient reports limited sleep due to pain and unsuccessful appeal for insurance coverage of recommended cortisone injections. Currently on gabapentin, meloxicam, with a requested refill for baclofen. Additionally, the patient reports symptoms consistent with bacterial vaginosis and a history of inconsistent follow-up with gynecological care. The patient demonstrates adherence to treatment for Major Depressive Disorder with Wellbutrin but inquires about weight changes, noting a recent weight loss. The probable obesity contributes to musculoskeletal strain. The suspicion of a urinary tract infection was self-reported without confirmation. The primary management focus is on pain control, possible infection assessment, and weight-related health interventions. 1. Cervicalgia M54.2 Management aligned with the approach for low back pain, currently under care of [facility] waiting for insurance approval to cortisone injections 2. Major Depressive Disorder Continue current prescription of Wellbutrin. Monitor symptoms and adjust commitment to depression-focused treatment as necessary. 3. Bacterial Vaginosis Vaginal culture ordered to confirm bacterial vaginosis. Patient advised on the necessity of gynecological follow-up for comprehensive management. 4. Chronic Low Back Pain Continuation of current medications gabapentin and meloxicam, with a refill for baclofen prescribed. Patient advised to use a back support belt during work to mitigate strain. pending insurance resolution for cortisone injections, and encouragement to minimize lifting at work. 5. Obesity Patient's recent weight loss noted as a positive development. Advised on continued healthy lifestyle and dietary modifications to support weight management. 6. Urinary Tract Infection Self-Reported Patient self-reported possible UTI symptoms are not confirmed UA negative Problem List - Chronic Low Back Pain - Cervicalgia - Major Depressive Disorder - Bacterial Vaginosis - Obesity Patient Instructions - Continue taking gabapentin and meloxic am as prescribed for pain management. - Use a back support belt while performi ng physical tasks at work. - Follow up with an OBGYN for comprehens jasmin management of gynecological concerns. - Collect vaginal culture to confirm jadon gnosis before initiating treatment for bacterial vaginosis. - Maintain current depression treatment with Wellbutrin and monitor for any c hanges. - Focus on healthy lifestyle choices to maintain and progress in weight loss. - Contact a healthcare provider if exper iencing new or worsening symptoms. [facility] Medical History UTI (urinary tract infection) Morbid obesity with BMI of 40.0-44.9, adult Migraine with aura Surgical History History of cholecystectomy Family History Father Diabetes mellitus Mother High cholesterol HTN (hypertension) CVD (cardiovascular disease) Brother Diabetes mellitus Asthma Maternal Grandmother Diabetes mellitus Cancer Maternal Grandfather Diabetes mellitus Cancer Paternal Grandmother Unknown family medical history Paternal Grandfather No problems noted. Maternal Aunt Breast cancer Brother No problems noted. Brother No problems noted. Sister No problems noted. Daughter No problems noted. Daughter No problems noted. Daughter No problems noted. Other Mental health disorder Substance use disorder Social History Housing: Apartment Alcohol intake: never Patient Tobacco Use Status: Never used Tobacco e-Cigarette/Vaping Use: Never Used Substance Use Type: Marijuana service: No Current occupational status: unemployed Cognitive needs: No Hearing needs: No Vision needs: Yes Female Reproductive History Menstrual Age of Menarche: 11 Questionnaire Thrive Questionnaire Date Thrive assessed: 05/18/24 I am a: Patient What is your living situation today?: I have a steady place to live Within the past 12 months, did the food you bought not last and you didn't have the money to get more?: Never true Within the past 12 months, did you worry whether your food would run out before you got money to buy more?: Never true Do you have trouble paying for medicines?: No Do you have trouble getting transportation to medical appointments?: No Do you have trouble paying your heating and electricity bill?: No Do you have trouble taking care of your child, family member or friend?: No Do you have trouble with day-to-day activities such as bathing, preparing meals, shopping, managing finances, etc.?: No Are you currently unemployed and looking for a job?: No Are you interested in more education?: No Please select the resources that you would like help with: None Currently or been in a relationship where the following occur: No concerns reported THRIVE Score: 0 AUDIT C Alcohol Use Questionnaire (AUDIT-C) 1. How often do you have a drink containing alcohol?: Monthly or less 2. How many drinks containing alcohol do you have on a typical day when you are drinking?: 1 or 2 3. How often do you have six or more drinks on one occasion?: Never Total Score: 1 Score Reviewed/Action Taken: Yes CHAU-7 AMB Questionnaire CHAU-7 Date CHAU - 7 assessed: 02/07/24 Source: Developed by Drs. Jeremias Young, Jeri Howe, Manny Naqvi and colleagues, with an educational pacheco from [employer]. Review of Systems Const Denies chills and Denies fever(s) ENT Denies epistaxis and Denies nasal discharge Card Denies chest pain Resp Denies chest congestion, Denies cough and Denies hemoptysis GI Denies diarrhea and Denies nausea Skin/Breast Denies rash Neuro Reports no additional complaints Psych Reports no additional complaints Endo Reports no additional complaints Physical exam (Primary Care) Vital Signs: Last Vital Signs Pulse 77 05/18/24 10:38 BP 132/84 05/18/24 10:38 Pulse Ox 97 05/18/24 10:38 Oxygen Delivery Method Room Air 05/18/24 10:38 BMI result Body Mass Index 38.5 Tobacco/Smoking Status: Tobacco use Status Tobacco use date assessed 05/18/24 05/18/24 10:42 Patient Tobacco Use Status Never used Tobacco 05/18/24 10:38 e-Cigarette/Vaping Use Never Used 05/18/24 10:38 Thrive Assessment: Date of Thrive Assessment Date Thrive assessed 05/18/24 05/18/24 10:42 Currently or been in a relationship where the following occur: No concerns reported Const General: cooperative and no acute distress Orientation/consciousness: patient oriented x3 HENMT Head: Yes normocephalic Eyes General: appearance normal, both eyes and all related structures Neck Neck: Yes supple Resp Effort & Inspection: normal respiratory effort, no cough and no stridor General: Yes no CVA tenderness Back/Spine/Pelvis Back: no CVA tenderness Thoracic/Lumbar Spine: straight leg raise negative bilaterally and thoraco- lumbar spasm Skin General skin exam: turgor normal Neuro General: patient oriented x3, tone normal and moves all extremities Motor exam (neuro): 5/5 motor strength present throughout Extrem Right lower extremity: no edema Left lower extremity: no edema Results AMB Urinalysis, Automated UA Leukoctes 0 Judit/uL Last Edit by Isak Santos CMA on 05/18/24 10:55 UA Nitrite Negative Last Edit by Isak Santos CMA on 05/18/24 10:55 UA Urobilinogen 0.2 mg/dL Last Edit by Isak Santos CMA on 05/18/24 10 :55 UA Protein 0 mg/dL Last Edit by Isak Santos CMA on 05/18/24 10:55 UA pH 5.5 Last Edit by Isak Santos CMA on 05/18/24 10:55 UA Blood 0 Jon/uL Last Edit by Isak Santos CMA on 05/18/24 10:55 UA Specific [place] 1.030 Last Edit by Isak Santos CMA on 05/18/24 10:55 UA Ketone Negative Last Edit by Isak Santos CMA on 05/18/24 10:55 UA Bilirubin 0 mg/dL Last Edit by Isak Santos CMA on 05/18/24 10:55 UA Glucose 0 mg/dL Last Edit by Isak Santos CMA on 05/18/24 10:55 Coding Level of Care Code Est Pt Level 4 (29417) Complex EM visit Add On G2211 Diagnoses Vaginal discharge N89.8 Right lumbar radiculitis M54.16 Strain of lumbar paraspinous muscle, initial encounter S39.012A Encounter type: initial encounter Vaginal odor N89.8 Recurrent major depressive disorder, in partial remission F33.41 Active/Remission status: in partial remission Anxiety, generalized F41.1 Assessment & Plan Assessment & Plan (1) Vaginal discharge: Code(s): N89.8 - Other specified noninflammatory disorders of vagina Category: Medical (2) Right lumbar radiculitis: Code(s): M54.16 - Radiculopathy, lumbar region Category: Medical (3) Strain of lumbar paraspinal muscle: Code(s): S39.012A - Strain of muscle, fascia and tendon of lower back, initial encounter Category: Medical Qualifiers: Encounter type: initial encounter Qualified Code(s): S39.012A - Strain of muscle, fascia and tendon of lower back, initial encounter (4) Vaginal odor: Code(s): N89.8 - Other specified noninflammatory disorders of vagina Category: Medical (5) Major depression, recurrent: Code(s): F33.9 - Major depressive disorder, recurrent, unspecified Category: Medical Qualifiers: Active/Remission status: in partial remission Qualified Code(s): F33.41 - Major depressive disorder, recurrent, in partial remission (6) Anxiety, generalized: Code(s): F41.1 - Generalized anxiety disorder Category: Medical Plan Chief Complaint Persistent severe low back pain. Assessment and Plan 38-year-old female with a history of chronic low back pain and cervicalgia pr esenting with persistent severe back pain possibly aggravated by physical job requirements. The patient reports limited sleep due to pain and unsuccessful appeal for insurance coverage of recommended cortisone injections. Currently on gabapentin, meloxicam, with a requested refill for baclofen. Additionally, the patient reports symptoms consistent with bacterial vaginosis and a history of inconsistent follow-up with gynecological care. The patient demonstrates adherence to treatment for Major Depressive Disorder with Wellbutrin but inquires about weight changes, noting a recent weight loss. The probable obesity contributes to musculoskeletal strain. The suspicion of a urinary tract infection was self-reported without confirmation. The primary management focus is on pain control, possible infection assessment, and weight-related health interventions. 1. Cervicalgia M54.2 Management aligned with the approach for low back pain, currently under care of [facility] waiting for insurance approval to cortisone injections 2. Major Depressive Disorder Continue current prescription of Wellbutrin. Monitor symptoms and adjust commitment to depression-focused treatment as necessary. 3. Bacterial Vaginosis Vaginal culture ordered to confirm bacterial vaginosis. Patient advised on the necessity of gynecological follow-up for comprehensive management. 4. Chronic Low Back Pain Continuation of current medications gabapentin and meloxicam, with a refill for baclofen prescribed. Patient advised to use a back support belt during work to m itigate strain. pending insurance resolution for cortisone injections, and encouragement to minimize lifting at work. 5. Obesity Patient's recent weight loss noted as a positive development. Advised on continued healthy lifestyle and dietary modifications to support weight management. 6. Urinary Tract Infection Self-Reported Patient self-reported possible UTI symptoms are not confirmed UA negative Problem List - Chronic Low Back Pain - Cervicalgia - Major Depressive Disorder - Bacterial Vaginosis - Obesity Patient Instructions - Continue taking gabapentin and meloxicam as prescribed for pain management. - Use a back support belt while performing physical tasks at work. - Follow up with an OBGYN for comprehensive management of gynecological concerns. - Collect vaginal culture to confirm diagnosis before initiating treatment for bacterial vaginosis. - Maintain current depression treatment with Wellbutrin and monitor for any changes. - Focus on healthy lifestyle choices to maintain and progress in weight loss. - Contact a healthcare provider if experiencing new or worsening symptoms. Orders: Orders Bacterial Vaginosis Panel Today N89.8 - Other specified noninflammatory disorders of vagina AMB Urinalysis Automated Today Z13.9 - Encounter for screening, unspecified Medications: Refilled baclofen 10 mg PO BEDTIME 30 tabs 2RF Muscle relaxer
[2024-05-18 10:38] VITALS: BP 132/84; PULSE 77; O2SAT 97; BMI 38.5
== END 2024-05-18 11:03 | disposition home or self-care (01) ==
PROVIDERS: PCP Internal Medicine; Visit Provider Internal Medicine
DX: N89.8 Other specified noninflammatory disorders of vagina (principal); M54.16 Radiculopathy, lumbar region; S39.012A Strain of muscle, fascia and tendon of lower back, initial encounter; F33.41 Major depressive disorder, recurrent, in partial remission; F41.1 Generalized anxiety disorder; Z13.9 Encounter for screening, unspecified

== ENCOUNTER 2024-06-04 09:34 | Outpatient (AMB) | payer OTHER, SELFPAY ==
--- NOTE | 2024-06-04 10:02 | AM.OFFWIN_ITS ---
Intake Vital Signs 06/04/24 10:08 Weight 215 lb BP 122/80 Blood Pressure Location Rt brachial Position Sitting Pulse 76 Pulse Source Pulse Oximeter Temp 97.8 F Temp Source Oral Pulse Oximetry (%) 98 Oxygen Delivery Method Room Air Intake Visit Reasons: EP-uti Intake Note: Patient here for bladder pressure that started Tuesday. Patient Tobacco Use Status: Never used Tobacco Allergies apples, strawberries, kiwi, ma Allergy (Unknown, Uncoded 06/04/24 10:07) shortness of breath Cats, Dust mites Allergy (Unknown, Uncoded 06/04/24 10:07) per allergy testing Environmental Allergy (Unknown, Uncoded 06/04/24 10:07) per allergy testing Do you need a note to return to daycare/school/sports/work: No HPI EP-uti HPI Details This note is constructed using voice recognition software. While every effort has been made to ensure accuracy, inseam trimmer errors may have been included. The patient is a 38 year old female who presents to the clinic today with urinary frequency, urgency since Tuesday. She took azo overnight for symptomatic management. He denies fever, chills, back pain. [facility] Medical History UTI (urinary tract infection) Morbid obesity with BMI of 40.0-44.9, adult Migraine with aura Surgical History History of cholecystectomy Family History Father Diabetes mellitus Mother High cholesterol HTN (hypertension) CVD (cardiovascular disease) Brother Diabetes mellitus Asthma Maternal Grandmother Diabetes mellitus Cancer Maternal Grandfather Diabetes mellitus Cancer Paternal Grandmother Unknown family medical history Paternal Grandfather No problems noted. Maternal Aunt Breast cancer Brother No problems noted. Brother No problems noted. Sister No problems noted. Daughter No problems noted. Daughter No problems noted. Daughter No problems noted. Other Mental health disorder Substance use disorder Social History Housing: Apartment Alcohol intake: never Patient Tobacco Use Status: Never used Tobacco e-Cigarette/Vaping Use: Never Used Substance Use Type: Marijuana service: No Current occupational status: unemployed Cognitive needs: No Hearing needs: No Vision needs: Yes Female Reproductive History Menstrual Age of Menarche: 11 Review of Systems Const All systems reviewed & are unremarkable except as noted in HPI and below Physical Exam Vital Signs: Last Vital Signs Temp 97.8 F 06/04/24 10:08 Pulse 76 06/04/24 10:08 BP 122/80 06/04/24 10:08 Pulse Ox 98 06/04/24 10:08 Oxygen Delivery Method Room Air 06/04/24 10:08 Const General: cooperative, healthy appearing, comfortable, no acute distress and alert Orientation/consciousness: patient oriented x3 Limitations: no limitations Resp Effort & Inspection: normal respiratory effort and able to speak in complete sentences Other: Deferred General: Yes no CVA tenderness Back/Spine/Pelvis Back: no CVA tenderness Skin General skin exam: no rashes or lesions noted, elasticity normal and turgor normal Neuro General: patient oriented x3 Psych Appearance: grossly normal Mental Status: mental status grossly normal Speech and movement: Normal speech and movement present Affect: normal affect Assessment & Plan Assessment & Plan (1) UTI (urinary tract infection): Code(s): N39.0 - Urinary tract infection, site not specified Qualifiers: Urinary tract infection type: acute cystitis Hematuria presence: with hematuria Qualified Code(s): N30.01 - Acute cystitis with hematuria Plan: Supportive measures encouraged and reviewed. Antibiotic sent to requested pharmacy, advised patient to take antibiotics until completed and not to stop if feeling better, unless the patient has side effects. Urine culture sent for confirmation. We will adjust antibiotics as appropriate. Advised patient to follow up with primary care provider with worsening or failure to resolve. Plan See above for full details and plan. Orders: Orders UA CC w/rflx Micro + Cult Today R30.0 - Dysuria Medications: New nitrofurantoin monohyd/m-cryst 100 mg must administer with a meal/food 100 mg PO Q12H 5 days 10 caps 0RF Coding Level of Care Code Est Pt Level 3 (33402) Diagnoses Acute cystitis with hematuria N30.01 Urinary tract infection type: acute cystitis Hematuria presence: with hematuria
[2024-06-04 10:08] VITALS: BP 122/80; PULSE 76; TEMP 36.6; O2SAT 98
== END 2024-06-04 10:41 | disposition home or self-care (01) ==
PROVIDERS: PCP Internal Medicine; Visit Provider Registered Nurse
DX: N30.01 Acute cystitis with hematuria (principal); Z13.9 Encounter for screening, unspecified

== ENCOUNTER 2024-06-04 09:34 | Outpatient (REF) | payer OTHER, SELFPAY ==
[2024-06-04 15:13] LABS: Appearance Urine Clear; Color Urine Yellow; Glucose Urine UA Negative (Negative); Leukocyte Esterase Urine Small (1+) (Negative); Nitrite Urine Negative (Negative); PH 5.5 (5.0-9.0); UMIC TRIGGER UACC YES; Urine Blood Trace (Negative); Urine Ketones Negative (Negative); Urine Protein Negative (Neg-Trace)
[2024-06-04 15:20] LABS: Bacteria Urine None Seen (None Seen); Hyaline Casts Urine 0-2 /LPF (0-2); Squamous Epithelial Cell Urine 0-2 /HPF (0-2); UACC Culture Trigger YES; WBC Urine >50 /HPF (0-5)
== END 2024-06-04 09:35 | disposition home or self-care (01) ==
LOC: HO.LAB 09:34
PROVIDERS: PCP Internal Medicine; Visit Provider Registered Nurse
DX: R30.0 Dysuria (principal); N30.01 Acute cystitis with hematuria
CPT/HCPCS: 81001; 81003; 87086; 87088; 87186; 99212

== ENCOUNTER 2024-06-10 10:35 | Emergency (ER) | payer OTHER, SELFPAY ==
--- NOTE | ~2024-06-10 | XR_ITS ---
CLINICAL HISTORY: back pain Three views of the lumbar spine. Comparison 11/25/2023. Findings: Minimal lateral curve of the spine could be positional. Fractures or suspicious bony lesions are seen. There is mild multilevel degenerative disc disease. There is also facet disease in the lower lumbar spine. Impression: Mild degenerative changes. No definite acute abnormality is identified. This document has been electronically signed by: José Luis Townsend MD on 06/10/2024 12:44:54
[2024-06-10 10:44] VITALS: BP 135/71; PULSE 77; RESP 16; TEMP 36; O2SAT 97; BMI 38.3
--- NOTE | 2024-06-10 12:02 | ED.BACK ---
HPI - Back Pain/Injury General Chief Complaint: Back Pain/Injury Stated Complaint: Back pain Time Seen by Provider: 06/10/24 11:45 Source: patient Mode of arrival: ambulatory Limitations: no limitations History of Present Illness ED Provider: DR. Car HPI Narrative: 38-year-old female walked into the emergency department for evaluation of low back pain started 2 days ago pain is localized to the lower back radiates to the right buttock no weakness, no numbness, no urinary incontinence, no history of strenuous activity or trauma to the back. Patient also is complaining of pressure when she urinate but no dysuria or frequency urination, no fever, no chills. Related Data Previous Rx's ?Medication ?Instructions ?Recorded albuterol sulfate 90 mcg/actuation 1 inh inhalation QID PRN shortness 06/04/22 aerosol inhaler (Ventolin HFA) of breath or wheezing 30 days #6.7 grams epinephrine 0.3 mg/0.3 mL 0.3 mg (0.3 mL) IM Q4H PRN 01/28/23 injection, auto-injector (EpiPen) anaphylaxis #2 ea bupropion HCl 200 mg tablet,12 hr 200 mg PO DAILY #90 tabs 07/29/23 sustained-release (Wellbutrin SR) duloxetine 30 mg capsule,delayed 30 mg PO DAILY 90 days #90 caps 07/29/23 release (Cymbalta) albuterol sulfate 90 mcg/actuation 1 inh inhalation QID PRN shortness 09/06/23 aerosol inhaler (ProAir HFA) of breath or wheezing 30 days #18 grams acetaminophen 500 mg tablet 1,000 mg (2 x 500 mg) PO QID PRN 11/25/23 (Tylenol Extra Strength) pain #30 tabs gabapentin 300 mg capsule 300 mg PO BEDTIME #30 caps 05/11/24 baclofen 10 mg tablet 10 mg PO BEDTIME Muscle relaxer 05/18/24 #30 tabs nitrofurantoin 100 mg PO Q12H 5 days #10 caps 06/04/24 monohydrate/macrocrystals 100 mg capsule nitrofurantoin 100 mg PO BID #14 caps 06/10/24 monohydrate/macrocrystals 100 mg capsule (Macrobid) oxycodone 5 mg tablet 5 mg PO BID PRN pain #10 tabs 06/10/24 Allergies Allergy/AdvReac Type Severity Reaction Status Date / Time apples, strawberries, kiwi, Allergy Unknown shortness Uncoded 06/10/24 10:47 ma of breath Cats, Dust mites Allergy Unknown per Uncoded 06/10/24 10:47 allergy testing Environmental Allergy Unknown per Uncoded 06/10/24 10:47 allergy testing Review of Systems Review of Systems: All other systems are reviewed and are negative Constitutional: Reports as per HPI and Reports no additional constitutional complaints Eyes: Reports as per HPI and Reports no additional eye complaints Reports system reviewed and no additional complaints, except as documented Cardiovascular: Reports as per HPI and Reports no additional cardiovascular complaints Respiratory: Reports as per HPI and Reports no additional respiratory complaints Gastrointestinal: Reports as per HPI and Reports no additional gastrointestinal complaints Genitourinary: Reports no additional female genitourinary complaints Musculoskeletal: Reports no additional musculoskeletal complaints Skin/Breast: Reports system reviewed and no additional complaints, except as docu Psychiatric: Reports no additional psychiatric complaints Endocrine: Reports no additional endocrine complaints Hematologic/Lymphatic: Reports no additional hematologic/lymphatic complaints Allergic/Immunologic: Reports no additional allergic/immunologic complaints Reports system reviewed and no additional complaints, except as documented and Reports Abnormal speech present [facility] Past Medical History Medical History UTI (urinary tract infection) Morbid obesity with BMI of 40.0-44.9, adult Migraine with aura Surgical History History of cholecystectomy Family History Family History Father Diabetes mellitus Mother High cholesterol HTN (hypertension) CVD (cardiovascular disease) Brother Diabetes mellitus Asthma Maternal Grandmother Diabetes mellitus Cancer Maternal Grandfather Diabetes mellitus Cancer Paternal Grandmother Unknown family medical history Paternal Grandfather No problems noted. Maternal Aunt Breast cancer Brother No problems noted. Brother No problems noted. Sister No problems noted. Daughter No problems noted. Daughter No problems noted. Daughter No problems noted. Other Mental health disorder Substance use disorder Social History Social History Housing: Apartment Alcohol intake: never Patient Tobacco Use Status: Never used Tobacco Smoked in Last 30 Days: No e-Cigarette/Vaping Use: Never Used Use of substances other than those prescribed or required for medical reasons: Yes Substance Use Type: Marijuana Substance Use Frequency: Daily Advance Directives: No Advance Directives Information Provided: No service: No Current occupational status: unemployed Cognitive needs: No Hearing needs: No Vision needs: Yes Physical Exam Vital Signs: Vital Signs: Last Vital Signs Temp 96.8 F 06/10/24 10:44 Pulse 67 06/10/24 15:10 Resp 18 06/10/24 15:10 BP 124/73 06/10/24 15:10 Pulse Ox 99 06/10/24 15:10 O2 Del Method Room Air 06/10/24 15:10 BMI result Body Mass Index 38.3 Vital signs have been reviewed and appear to be correct. Blood pressure elevated. Heart rate normal. Respiratory rate normal. Temperature normal. Oxygen saturation normal. Appearance: Alert. Oriented X3. No acute distress. Head: Normal external exam. Normocephalic. Atraumatic. No Campos signs noted. No raccoon eyes noted Eyes: PERRLA. EOMI. Conjunctiva and sclera normal. Eyelids normal. ENT: TM's Normal. Pharynx normal. Uvula midline. Moist mucous membranes. No trismus noted. No drooling noted. No muffled voice noted. Neck: Normal inspection. Neck supple. FROM. No adenopathy. Thyroid Normal. No meningeal signs. No neck mass noted. CVS: Normal heart rate and rhythm. Heart sound normal. No murmurs noted. Pulses normal throughout. Respiratory: No respiratory distress. Painless inspiration. Breath sounds normal. No wheezes/rales/rhonchi noted. Chest nontender. No accessory muscle usage noted or decreased air movement noted. Abdomen: Soft and nontender. Bowel sounds normal in all 4 quadrants. No distention noted. No organomegaly noted. No visible injury noted. Back: No CVA tenderness. Full range of motion noted. Skin: Skin warm and dry. Normal skin color. Normal skin turgor. No rashes/lesions/lacerations noted. Extremities: No lower extremity edema. Extremities exhibit normal range of motion. Extremities nontender. Neuro: Oriented X 3. Cranial nerve exam: II-XII are grossly intact No motor deficit. No sensory deficit. Reflexes normal. Course Reevaluation(s) Reevaluation #1: Low back pain with radiation to the left buttock, physical exam is consistent with lumbar radiculopathy. Patient is able to ambulate in the emergency department as discussed with the patient is to rest for 2 days and no heavy lifting will prescribe oxycodone PRN pain patient was instructed to use NSAIDs also. Time: 16:01 Medications Administered Discontinued Medications Generic Name Dose Route Start Last Admin Trade Name Ekta PRN Reason Stop Dose Admin Ibuprofen 800 mg 06/10/24 12:04 06/10/24 12:17 Ibuprofen 800 Mg Tablet PO 06/10/24 12:05 800 mg ONCE ONE Administration Oxycodone HCl 5 mg 06/10/24 12:04 06/10/24 12:16 Oxycodone Hcl Immed Release 5 Mg Tablet PO 06/10/24 12:05 5 mg ONCE ONE Administration Medical Decision Making Differential Diagnosis Differential Diagnoses: The differential diagnosis associated with the presentation includes (Lumbar radiculopathy, degenerative disease in the lumbar spine, UTI, pyelonephritis, muscular back pain.) Admission/Observation Consideration of admission/observation: Escalation of care including admission/observation considered Lab Data MDM Lab Attestation statement: I reviewed the patient's lab results. Labs: Lab Results 06/10/24 Range/Units 12:19 Urine Color Dark Yellow Urine Appearance Clear Urine pH 5.5 (5.0-9.0) Ur Specific [place] >= 1.030 H (1.005-1.025) Urine Protein 30 (1+) H (Neg-Trace) mg/dL Urine Glucose (UA) Negative (Negative) mg/dL Urine Ketones Negative (Negative) mg/dL Urine Blood Negative (Negative) Urine Nitrite Positive H (Negative) Ur Leukocyte Esterase Negative (Negative) Urine RBC 0-2 (0-2) /HPF Urine WBC 0-5 (0-5) /HPF Ur Squamous Epith Cells 3-5 (0-2) /HPF Urine Bacteria None Seen (None Seen) Hyaline Casts 0-2 (0-2) /LPF Urine Test NEGATIVE (NEGATIVE) ABG Data Attestation ABG: I personally reviewed and interpreted this ABG as follows: Independent Interpretation I performed an independent interpretation of an: Plain X-Ray (Lumbar spine:Mild degenerative changes. No definite acute abnormality is identified.) Radiology Impression Discussion of test interpretation with radiology: I have reviewed the radiologist's reading. Discharge Plan Discharge Clinical Impression: UTI (urinary tract infection), bacterial, Acute lumbar radiculopathy Patient Disposition: Home, Self-Care Instructions: Urinary Tract Infection in Women (ED) Prescriptions: New nitrofurantoin monohyd/m-cryst [Macrobid] 100 mg capsule 100 mg PO BID Qty: 14 0RF Rx Instructions: must administer with a meal/food oxycodone 5 mg tablet 5 mg PO BID PRN (Reason: pain) Qty: 10 0RF Rx Instructions: Partial Fill upon patient request. No Action albuterol sulfate [Ventolin HFA] 90 mcg/actuation HFA aerosol inhaler 1 inh inhalation QID PRN (Reason: shortness of breath or wheezing) 30 Days Qty: 6.7 0RF albuterol sulfate [ProAir HFA] 90 mcg/actuation HFA aerosol inhaler 1 inh inhalation QID PRN (Reason: shortness of breath or wheezing) 30 Days Qty: 18 2RF gabapentin 300 mg capsule 300 mg PO BEDTIME Qty: 30 0RF epinephrine [EpiPen] 0.3 mg/0.3 mL auto-injector 0.3 mg IM Q4H PRN (Reason: anaphylaxis) Qty: 2 0RF acetaminophen [Tylenol Extra Strength] 500 mg tablet 1,000 mg PO QID PRN (Reason: pain) Qty: 30 0RF bupropion HCl [Wellbutrin SR] 200 mg tablet sustained-release 12 hr 200 mg PO DAILY Qty: 90 1RF duloxetine [Cymbalta] 30 mg capsule,delayed release(DR/EC) 30 mg PO DAILY 90 Days Qty: 90 1RF baclofen 10 mg tablet 10 mg PO BEDTIME Qty: 30 2RF nitrofurantoin monohyd/m-cryst 100 mg capsule 100 mg PO Q12H 5 Days Qty: 10 0RF Rx Instructions: must administer with a meal/food Referrals: Jaydn Tinoco MD [Primary Care Provider] - Print Language: Cuban
[2024-06-10 12:15] VITALS: BP 121/68; PULSE 61; RESP 20; O2SAT 99
[2024-06-10] MEDS: oxyCODONE HCl Immed Release 5 MG TABLET PO (12:16)
[2024-06-10] MEDS: Ibuprofen 800 MG TABLET PO (12:17)
[2024-06-10 12:24] LABS: Appearance Urine Clear; Color Urine Dark Yellow; Glucose Urine UA Negative (Negative); Leukocyte Esterase Urine Negative (Negative); PH 5.5 (5.0-9.0); Specific Gravity - Urine >= 1.030 (1.005-1.025); UMIC TRIGGER UACC YES; UPreg QC Valid YES; Urine Blood Negative (Negative); Urine Ketones Negative (Negative); Urine Protein 30 (1+) mg/dL (Neg-Trace)
[2024-06-10 12:25] LABS: Urine Pregnancy NEGATIVE (NEGATIVE)
[2024-06-10 12:35] LABS: Hyaline Casts Urine 0-2 /LPF (0-2); RBC Urine 0-2 /HPF (0-2); UACC Culture Trigger YES; WBC Urine 0-5 /HPF (0-5)
[2024-06-10 12:36] LABS: Bacteria Urine None Seen (None Seen); Nitrite Urine Positive (Negative)
[2024-06-10 15:10] VITALS: BP 124/73; PULSE 67; RESP 18; O2SAT 99
[2024-06-10 16:36] VITALS: BP 124/73; PULSE 67; RESP 18; TEMP 36.7; O2SAT 99
== END 2024-06-10 16:37 | disposition home or self-care (01) ==
PROVIDERS: Emergency Provider Emergency Medicine; PCP Internal Medicine
DX: N39.0 Urinary tract infection, site not specified (principal); M54.16 Radiculopathy, lumbar region; Z79.899 Other long term (current) drug therapy
CPT/HCPCS: 72100; 81001; 81025; 87086; 99283; 99284

== ENCOUNTER 2024-06-16 09:51 | Observation (INO) | payer OTHER, SELFPAY ==
--- NOTE | ~2024-06-16 | CT_ITS ---
CLINICAL HISTORY: right flank pain CT abdomen and pelvis without contrast Comparison: CT/REG/MT - CT ABDOMEN PELVIS WO CON - 12/22/20 21:29 EDT Findings: No consolidation or effusion. The unenhanced liver, spleen, adrenal glands and pancreas are unremarkable. The gallbladder is surgically absent. There is neither urinary calculus nor obstructive uropathy. The bladder is partially distended without focal abnormality. The uterus and adnexa are unremarkable. No bowel obstruction or free air. There is diverticulosis present. No evidence of diverticulitis. Mild fecal retention within the colon. No acute osseous finding. Impression: No acute process by noncontrast CT. No urinary calculus or obstructive uropathy. Mild fecal retention. This document has been electronically signed by: Yuniel Yanes MD on 06/16/2024 13:04:56
[2024-06-16 10:07] VITALS: BP 149/101; PULSE 75; RESP 16; TEMP 36.4; O2SAT 98; BMI 39.0
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
[2024-06-16] MEDS: ondansetron HCL 4 MG/2 ML VIAL IVPUSH ×3 (11:45→19:27)
[2024-06-16] MEDS: 0.9 % Sodium Chloride 1,000 ML 999 ML IV ×2 (11:45→15:27)
[2024-06-16] MEDS: Ketorolac Tromethamine 15 MG/ML VIAL IVPUSH (11:45)
[2024-06-16 11:52] LABS: MANUAL DIFF FLAG NO
[2024-06-16 11:58] LABS: Basophils Percent Auto 0.6 % (0-2); Eosinophils Absolute Auto 0.1 X10*3/uL (0.0-0.4); Hematocrit 35.8 % (37.0-47.0); Hemoglobin 12.7 g/dl (12.0-16.0); Imm Gran Abs Auto 0.01 X10*3/uL (0.00-0.03); Imm Gran Pct Auto 0.2 % (0.0-0.4); Lymphocytes Absolute Auto 1.6 X10*3/uL (1.2-4.9); Lymphocytes Percent Auto 32.9 % (20-40); Mean Corpuscular HGB Conc 35.5 g/dl (31.0-35.0); Mean Corpuscular Hemoglobin 32.2 pg (27.0-33.0); Mean Corpuscular Volume 90.6 fL (80.0-98.0); Mean Platelet Volume 10.1 fL (9.4-12.3); Monocytes Absolute Auto 0.3 X10*3/uL (0.1-1.2); Monocytes Percent Auto 6.5 % (2-11); Neutrophils Absolute Auto 2.7 x10*3/uL (2.0-8.3); Neutrophils Percent Auto 56.8 % (45-73); Platelet Count 241 X10*3/uL (160-400); Red Blood Count 3.95 X10*6/uL (4.20-5.50); Red Cell Distribution Width 12.1 % (11.0-16.0); White Blood Count 4.7 X10*3/uL (4.8-10.8)
[2024-06-16 12:19] LABS: Alanine Aminotransferase 28 U/L (0-31); Albumin Level 3.8 g/dL (3.5-5.0); Alkaline Phosphatase 54 U/L (39-117); Anion Gap 8 (12-20); Aspartate Amino Transferase 27 U/L (5-31); Bilirubin Direct 0.2 mg/dL (0.0-0.5); Bilirubin Total 0.4 mg/dL (0.0-1.0); Blood Urea Nitrogen 11 mg/dL (9-16); Calcium 8.5 mg/dL (8.4-10.2); Carbon Dioxide 24 mmol/L (22-29); Chloride 114 mmol/L (96-108); Creatinine Clr Calc Pharmacy 130.8; Estimated Glomerular Filt Rate > 60; Glucose Random 117 mg/dL (60-115); Lipase 29 U/L (8-78); Potassium 3.8 mmol/L (3.3-5.1); Sodium 142 mmol/L (135-145); Total Protein 6.3 g/dL (6.5-8.0)
[2024-06-16 12:22] LABS: HCG Quantitative < 2 mIU/mL
[2024-06-16 12:59] VITALS: BP 129/83; PULSE 61; RESP 14; TEMP 36.8; O2SAT 100
[2024-06-16] MEDS: LORazepam 2 MG/ML VIAL 1 MG IVPUSH (13:45)
[2024-06-16] MEDS: Morphine Sulfate 4 MG/ML CARTRIDGE IVPUSH (13:45)
--- NOTE | 2024-06-16 13:47 | PC.NURSE ---
pt still [id number] pain despite previous interventions. provider notified/aware. medication administered per provider order. effectiveness pending.
[2024-06-16 14:50] VITALS: BP 129/83; PULSE 61; RESP 14
[2024-06-16 14:56] LABS: Appearance Urine Cloudy; Color Urine Yellow; Glucose Urine UA Negative (Negative); Leukocyte Esterase Urine Negative (Negative); Nitrite Urine Negative (Negative); PH 7.5 (5.0-9.0); Urine Blood Negative (Negative); Urine Ketones Negative (Negative); Urine Protein Negative (Neg-Trace)
[2024-06-16 14:57] LABS: UPreg QC Valid YES; Urine Pregnancy NEGATIVE (NEGATIVE)
[2024-06-16 15:25] VITALS: BP 114/83; PULSE 66; RESP 18; TEMP 36.4; O2SAT 98
[2024-06-16] MEDS: diphenhydrAMINE HCL 50 MG/ML VIAL 25 MG IVPUSH (15:27)
[2024-06-16] MEDS: Metoclopramide HCl 10 MG/2 ML VIAL IVPUSH (15:27)
--- NOTE | 2024-06-16 16:16 | P.HPHOSP_ITS ---
History of Present Illness Date of Service: 06/16/24 Chief Complaint: n/v 38F PMH chronic back pain, mood disorderl obesity presented with nausea and vomiting. patient reports worsening of her back pain radiating down leg over last few days. then started having nasuea, vomiting, water diarrhea, crampy abdominal pain, inability to tolerate po. denies fever, chills, hematochezia. Review of Systems 2 Review of Systems: Yes all other systems are reviewed and are negative [facility] Medical History UTI (urinary tract infection) Morbid obesity with BMI of 40.0-44.9, adult Migraine with aura Family History Father Diabetes mellitus Mother High cholesterol HTN (hypertension) CVD (cardiovascular disease) Brother Diabetes mellitus Asthma Maternal Grandmother Diabetes mellitus Cancer Maternal Grandfather Diabetes mellitus Cancer Paternal Grandmother Unknown family medical history Paternal Grandfather No problems noted. Maternal Aunt Breast cancer Brother No problems noted. Brother No problems noted. Sister No problems noted. Daughter No problems noted. Daughter No problems noted. Daughter No problems noted. Other Mental health disorder Substance use disorder Surgical History History of cholecystectomy Social History Housing: Apartment Alcohol intake: never Patient Tobacco Use Status: Never used Tobacco Smoked in Last 30 Days: No e-Cigarette/Vaping Use: Never Used Use of substances other than those prescribed or required for medical reasons: No Substance Use Type: Marijuana Advance Directives: No Advance Directives Information Provided: No Do you have a plan to hurt others: No Plan Patient : No service: No Current occupational status: unemployed Cognitive needs: No Hearing needs: No Vision needs: Yes Meds Allergies Allergy/AdvReac Type Severity Reaction Status Date / Time apples, strawberries, kiwi, Allergy Unknown shortness Uncoded 06/16/24 10:08 ma of breath Cats, Dust mites Allergy Unknown per Uncoded 06/16/24 10:08 allergy testing Environmental Allergy Unknown per Uncoded 06/16/24 10:08 allergy testing Active Medications: Current Medications Sodium Chloride (Ns) 1,000 mls @ 999 mls/hr IV .Q1H1M STA Stop: 06/16/24 16:16 Last Admin: 06/16/24 15:27 Dose: 999 mls/hr Physical Exam 2 Vital Signs and Narrative: Vital Signs: Last Vital Signs Temp 97.6 F 06/16/24 15:25 Pulse 66 06/16/24 15:25 Resp 18 06/16/24 15:25 BP 114/83 06/16/24 15:25 Pulse Ox 98 06/16/24 15:25 O2 Del Method Room Air 06/16/24 12:59 BMI result Body Mass Index 39.0 General: AO X 3, in discomfort Resp: CTA bilateral, no accessory muscles used CVS: S1,S2,RRR GI: soft, non tender, non distended Neuro: motor grossly intact, alert Psych: appropriate affect, appropriate insight Results Labs 06/16/24 11:44 06/16/24 11:44 Labs: Laboratory Results - last 24 hr 06/16/24 06/16/24 11:44 14:49 MCV 90.6 MCH 32.2 MCHC 35.5 H RDW 12.1 Plt Count 241 MPV 10.1 Immature Gran % (Auto) 0.2 Neut % (Auto) 56.8 Lymph % (Auto) 32.9 [place] % (Auto) 6.5 Eos % (Auto) 3.0 Baso % (Auto) 0.6 Lymph # (Auto) 1.6 [place] # (Auto) 0.3 Eos # (Auto) 0.1 Baso # (Auto) 0.0 Abs Immat Gran (auto) 0.01 Absolute Neuts (auto) 2.7 Absolute Nucleated RBC 0.000 Nucleated RBC % (auto) 0.0 Anion Gap 8 L Estim Creat Clear Calc 130.8 Estimated GFR > 60 Random Glucose 117 H Calcium 8.5 D Total Bilirubin 0.4 Direct Bilirubin 0.2 AST 27 ALT 28 Alkaline Phosphatase 54 Total Protein 6.3 L Albumin 3.8 Lipase 29 Beta HCG, Quant < 2 Urine Color Yellow Urine Appearance Cloudy Urine pH 7.5 Ur Specific [place] 1.020 Urine Protein Negative Urine Glucose (UA) Negative Urine Ketones Negative Urine Blood Negative Urine Nitrite Negative Ur Leukocyte Esterase Negative Urine Test NEGATIVE Assessment and Plan (1) Major depression, recurrent: Qualifiers: Active/Remission status: in partial remission Qualified Code(s): F33.41 - Major depressive disorder, recurrent, in partial remission Status: Acute Plan 38F PMH chronic back pain, mood disorderl obesity presented with nausea and vomiting Gastroenteritis IV fluids, antiemetics, advanced diet as tolerated Monitor electrolytes Mood disorder cymbalta Chronic back pain gabapentin Low risk for DVT - early ambulation encouraged Full code Quality Stroke Does the patient have a stroke diagnosis?: No VTE Prior VTE?: No VTE Risk Level:: Medical - low VTE Device Contraindication: Treatment Not Indicated VTE Drug Contraindication: Treatment Not Indicated
--- NOTE | 2024-06-16 16:22 | PHA.MEDREC ---
Pharmacy Consult ? Medication Reconciliation Pharmacy has completed the medication reconciliation. Spoke with patient to confirm. She finished the antibiotic and oxycodone yesterday. She last took her medications yesterday. She reports still taking cymbalta. There is no claim history and [facility] pharmacy is closed for the day. Can follow up tomorrow morning.
[2024-06-16] MEDS: Dextrose 5 % and Lactated Ring 1,000 ML 80 ML IVCONT (17:05)
[2024-06-16 18:32] VITALS: BP 109/69; PULSE 63; RESP 15; O2SAT 99
--- NOTE | 2024-06-16 19:29 | PC.NURSE ---
this rn assumed care of pt, pt reporting nausea and dry heaving at this time. pt medicated per mar with zofran, pt given water for PO challenge.
[2024-06-16] MEDS: Baclofen 10 MG TABLET PO (20:15)
[2024-06-16] MEDS: Gabapentin 300 MG CAPSULE PO (20:15)
[2024-06-16] MEDS: traMADoL HCL 50 MG TABLET 25 MG PO (20:15)
[2024-06-16] MEDS: Morphine Sulfate 2 MG/ML CARTRIDGE IVPUSH (22:10)
--- NOTE | 2024-06-16 22:14 | PC.NURSE ---
Pt a&ox4, no signs of distress. Pt reporting 10/10 back pain and requesting pain meds. Pt medicated per mar Plan of care ongoing.
--- NOTE | 2024-06-16 23:45 | PC.NURSE ---
Pt a&ox4, no signs of distress. Pt ambulates to the restroom with a slow steady gait Plan of care ongoing.
[2024-06-17] MEDS: Morphine Sulfate 2 MG/ML CARTRIDGE IVPUSH (03:32)
--- NOTE | 2024-06-17 03:36 | PC.NURSE ---
Pt reporting 10/10 back pain and requesting meds. Pt medicated per aug Pt assisted to restroom, pt ambulates with slow steady gait. Plan of care ongoing.
[2024-06-17 03:44] VITALS: BP 126/75; PULSE 65; RESP 18; TEMP 36.6; O2SAT 97
[2024-06-17 04:35] LABS: Hematocrit 34.2 % (37.0-47.0); Hemoglobin 11.8 g/dl (12.0-16.0); Mean Corpuscular HGB Conc 34.5 g/dl (31.0-35.0); Mean Corpuscular Hemoglobin 31.9 pg (27.0-33.0); Mean Corpuscular Volume 92.4 fL (80.0-98.0); Platelet Count 210 X10*3/uL (160-400); Red Cell Distribution Width 12.4 % (11.0-16.0); White Blood Count 7.4 X10*3/uL (4.8-10.8)
[2024-06-17 04:50] LABS: Anion Gap 6 (12-20); Blood Urea Nitrogen 7 mg/dL (9-16); Calcium 8.1 mg/dL (8.4-10.2); Carbon Dioxide 24 mmol/L (22-29); Chloride 113 mmol/L (96-108); Creatinine Clr Calc Pharmacy 125.1; Estimated Glomerular Filt Rate > 60; Glucose Random 105 mg/dL (60-115); Magnesium 1.8 mg/dL (1.6-2.6); Potassium 3.3 mmol/L (3.3-5.1); Sodium 140 mmol/L (135-145)
[2024-06-17] MEDS: Dextrose 5 % and Lactated Ring 1,000 ML 80 ML IVCONT (06:10)
--- NOTE | 2024-06-17 07:29 | PM.DS ---
DS: Providers Provider Date of Service: 06/17/24 Date of admission: 06/16/24 16:14 Date of discharge: 06/17/24 Primary care physician: Jadyn Tinoco MD DS: Diagnosis Discharge Diagnosis (1) Major depression, recurrent: Status: Acute DS: Summary Hospital Course Hospital Course: from initial hpi: 38F PMH chronic back pain, mood disorderl obesity presented with nausea and vomiting. patient reports worsening of her back pain radiating down leg over last few days. then started having nasuea, vomiting, water diarrhea, crampy abdominal pain, inability to tolerate po. denies fever, chills, hematochezia. hospital course: Patient was admitted for gastroenteritis. She was treated with IV fluids, antiemetics. Her diet was slowly advanced and she is now tolerating solid foods and able to hydrate by mouth. For mood disorder was continued on Cymbalta. For chronic back pain was continued on gabapentin and will follow up outpatient with Neurosurgery. Patient is feeling better will be discharged home. Time Attestation Discharge Coordination Time (in mins): 32 Quality: Safe Use of Opioids Does Pt have an Active Cancer Diagnosis on the Problem List?: No Quality: Stroke Does the patient have a stroke diagnosis?: No Physical Exam Vital Signs: Vital Signs: Last Vital Signs Temp 97.8 F 06/17/24 03:44 Pulse 65 06/17/24 03:44 Resp 18 06/17/24 03:44 BP 126/75 06/17/24 03:44 Pulse Ox 97 06/17/24 03:44 O2 Del Method Room Air 06/17/24 03:44 BMI result Body Mass Index 39.0 General: AO X 3, no acute distress Resp: CTA bilateral, no accessory muscles used CVS: S1,S2,RRR GI: soft, non tender, non distended Neuro: motor grossly intact, alert Psych: appropriate affect, appropriate insight DS: Data Data Completed and Pending Labs on day of discharge: Laboratory Results - last 24 hr 06/16/24 06/16/24 06/17/24 11:44 14:49 04:29 WBC 4.7 L 7.4 RBC 3.95 L 3.70 L Hgb 12.7 11.8 L Hct 35.8 L 34.2 L MCV 90.6 92.4 MCH 32.2 31.9 MCHC 35.5 H 34.5 RDW 12.1 12.4 Plt Count 241 210 MPV 10.1 10.0 Immature Gran % (Auto) 0.2 Neut % (Auto) 56.8 Lymph % (Auto) 32.9 [place] % (Auto) 6.5 Eos % (Auto) 3.0 Baso % (Auto) 0.6 Lymph # (Auto) 1.6 [place] # (Auto) 0.3 Eos # (Auto) 0.1 Baso # (Auto) 0.0 Abs Immat Gran (auto) 0.01 Absolute Neuts (auto) 2.7 Absolute Nucleated RBC 0.000 0.000 Nucleated RBC % (auto) 0.0 0.0 Sodium 142 140 Potassium 3.8 3.3 Chloride 114 H 113 H Carbon Dioxide 24 24 Anion Gap 8 L 6 L BUN 11 7 L Creatinine 0.65 0.68 Estim Creat Clear Calc 130.8 125.1 Estimated GFR > 60 > 60 Random Glucose 117 H 105 Calcium 8.5 D 8.1 L Magnesium 1.8 Total Bilirubin 0.4 Direct Bilirubin 0.2 AST 27 ALT 28 Alkaline Phosphatase 54 Total Protein 6.3 L Albumin 3.8 Lipase 29 Beta HCG, Quant < 2 Urine Color Yellow Urine Appearance Cloudy Urine pH 7.5 Ur Specific [place] 1.020 Urine Protein Negative Urine Glucose (UA) Negative Urine Ketones Negative Urine Blood Negative Urine Nitrite Negative Ur Leukocyte Esterase Negative Urine Test NEGATIVE Discharge Plan Discharge Anticipated Discharge Date/Time: 06/17/24 07:28 Patient Disposition: Home, Self-Care Discharge Diagnosis: gastroenteritis Referrals: Jadyn Tinoco MD [Primary Care Provider] - 1 Week Discharge Medications: Continued albuterol sulfate [Ventolin HFA] 90 mcg/actuation HFA aerosol inhaler 1 inh inhalation QID PRN (Reason: shortness of breath or wheezing) 30 Days Qty: 6.7 0RF gabapentin 300 mg capsule 300 mg PO BEDTIME Qty: 30 0RF epinephrine [EpiPen] 0.3 mg/0.3 mL auto-injector 0.3 mg IM Q4H PRN (Reason: anaphylaxis) Qty: 2 0RF acetaminophen [Tylenol Extra Strength] 500 mg tablet 1,000 mg PO QID PRN (Reason: pain) Qty: 30 0RF duloxetine [Cymbalta] 30 mg capsule,delayed release(DR/EC) 30 mg PO DAILY 90 Days Qty: 90 1RF baclofen 10 mg tablet 10 mg PO BEDTIME Qty: 30 2RF Discharge Orders: Discharge Order (Routine); Ordered 06/17/24 Ordered By: Jamin Walters Diet: Advance to usual diet Activity on Discharge: As tolerated Stand Alone Forms: Patient Portal Discharge page Print Language: Tamazight Care Plan Goals: recovery Health Concerns: gastroenteritis Plan of Treatment: try to stay hydrated, follow up with neurosurgeon for back pain Assessment: see above
--- NOTE | 2024-06-17 08:33 | MHC.CM.PN ---
Patient medically cleared for ia home self care prior to CM assessment
[2024-06-17 09:08] VITALS: BP 118/73; PULSE 66; RESP 16; TEMP 36.7; O2SAT 98
== END 2024-06-17 09:04 | disposition home or self-care (01) ==
LOC: HO.ED 15:34 → HO.EDOVER 16:19
PROVIDERS: Nurse Practitioner Family; Admitting Provider Internal Medicine; Emergency Provider Emergency Medicine; PCP Internal Medicine; Visit Provider Internal Medicine
DX: K52.9 Noninfective gastroenteritis and colitis, unspecified (principal); G89.29 Other chronic pain; M54.9 Dorsalgia, unspecified; R11.2 Nausea with vomiting, unspecified; F39 Unspecified mood [affective] disorder; Z79.899 Other long term (current) drug therapy; F33.41 Major depressive disorder, recurrent, in partial remission; R10.9 Unspecified abdominal pain
CPT/HCPCS: 36415; 74176; 80048; 80076; 81003; 81025; 83690; 83735; 84702; 85025; 85027; 96361; 96374; 96375; 96376; 99285; J1200; J1885; J2060; J2270; J2405; J2765

== ENCOUNTER → 2024-06-16 16:14 | Outpatient (BNV) | payer OTHER, SELFPAY | PROVIDERS: Admitting Provider Internal Medicine; Emergency Provider Emergency Medicine; PCP Internal Medicine; Visit Provider Internal Medicine | DX: F33.41 Major depressive disorder, recurrent, in partial remission (principal); K52.9 Noninfective gastroenteritis and colitis, unspecified | CPT/HCPCS: 99222; 99239 ==

== ENCOUNTER 2024-06-26 13:12 | Outpatient (AMB) | payer OTHER, SELFPAY ==
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
[2024-06-26 13:26] VITALS: BP 110/90; PULSE 93; O2SAT 98
--- OUTSIDE RECORDS SUMMARY | 2024-06-26 15:24 | XMS_ITS | Continuity of Care Document ---
Author Organization [facility] ter Address [address] [place] [id number]- Care Team Providers Care Screen Roller Name Role Phone Erick OTT, Allegra Cedeno Primary Care Physician Encounter 06/23/24 - 06/24/[address] [address]- Attending Physician: Not on Staff, Attending MD Referring Physician: Not on Staff, Referring MD Encounter Type: [facility] Allergies, Adverse Reactions, Alerts No Known Allergies Medications cloNIDine 0.1 mg oral tablet 0.2 mg, 2, tablet, By Mouth, Daily at bedtime, for sleep and anxiety, # 60 tablet, Refills 1, Tot. Refills 1, Maintenance, 09/18/19 10:11:00 AM EDT, Route to Pharmacy Electronically, [id number] Start Date: 09/18/19 Status: Ordered Quantity: 60.0 Unit: tablet Repeat number: 2 Zoloft 100 mg oral tablet See Instructions, 1 tablet By Mouth Daily, # 30 tablet, 2 Refills, Maintenance, 09/18/19 10:11:00 AM EDT, Tablet, [facility][id number] Start Date: 09/18/19 Status: Ordered Quantity: 30.0 Unit: tablet Repeat number: 3 Problem List Condition Confirmation Course Effective Dates Status Health St atus Informant Adjustment disorder with anxiety Confirmed Active Anxiety Confirmed Active Anxiety Confirmed Active Anxiety Confirmed Active Eating disorder Confirmed Active Depression, major, recurrent, moderate Confirmed Active Post traumatic stress disorder (PTSD) Confirmed Active Severe recurrent major depression without psychotic features Confirmed Active Patient Care team information Care Team Personnel Name: Allegra Suarez MD Position: Reference Physician Member Role: PCP Address: [address] [place], [place] [address] Telecom: Care Team Related Persons Name: LUIS ARMANDO ALVARADO Insurance Providers Guarantor name: [facility] Sweetie High [facility] Information #: 1 Payer: NIYAH TORO Member Number: NA Policy Number: NA Group Number: NA
== END 2024-06-26 14:52 | disposition home or self-care (01) ==
PROVIDERS: PCP Internal Medicine; Visit Provider Internal Medicine
DX: M54.16 Radiculopathy, lumbar region (principal); S39.012A Strain of muscle, fascia and tendon of lower back, initial encounter

== ENCOUNTER → 2024-06-26 13:12 | Outpatient (BNVA) | payer OTHER, SELFPAY | PROVIDERS: PCP Internal Medicine; Visit Provider Internal Medicine | DX: R11.10 Vomiting, unspecified (principal); R19.7 Diarrhea, unspecified; M54.16 Radiculopathy, lumbar region; S39.012A Strain of muscle, fascia and tendon of lower back, initial encounter; X58.XXXA Exposure to other specified factors, initial encounter; Y93.9 Activity, unspecified; Y92.9 Unspecified place or not applicable; Y99.9 Unspecified external cause status | CPT/HCPCS: 96127; 99212 ==

== ENCOUNTER 2024-08-21 08:57 | Outpatient (AMB) | payer OTHER, SELFPAY ==
[2024-08-21 09:02] VITALS: BP 130/76; PULSE 81; RESP 16; O2SAT 96; BMI 37.4
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
== END 2024-08-21 09:24 | disposition home or self-care (01) ==
PROVIDERS: PCP Internal Medicine; Visit Provider Internal Medicine
DX: M54.16 Radiculopathy, lumbar region (principal); M25.551 Pain in right hip; S39.012A Strain of muscle, fascia and tendon of lower back, initial encounter

== ENCOUNTER → 2024-08-21 08:57 | Outpatient (BNVA) | payer OTHER, SELFPAY | PROVIDERS: PCP Internal Medicine; Visit Provider Internal Medicine | DX: M54.16 Radiculopathy, lumbar region (principal); M25.551 Pain in right hip; S39.012A Strain of muscle, fascia and tendon of lower back, initial encounter; X58.XXXA Exposure to other specified factors, initial encounter; Y93.9 Activity, unspecified; Y92.9 Unspecified place or not applicable; Y99.9 Unspecified external cause status | CPT/HCPCS: 96127 ==

== ENCOUNTER 2024-10-12 08:50 | Outpatient (AMB) | payer OTHER, SELFPAY ==
--- NOTE | 2024-10-12 09:12 | MHC.OFFWIV ---
Intake Vital Signs 10/12/24 09:13 BP 126/88 Blood Pressure Location Rt brachial Position Sitting Pulse 80 Pulse Source Pulse Oximeter Temp 97.7 F Temp Source Oral Pulse Oximetry (%) 97 Oxygen Delivery Method Room Air Intake Visit Reasons: EP-?uti Intake Note: Patient here for frequent urination, bladder pressure and lower back pain that has been present for a couple of days. Patient Tobacco Use Status: Never used Tobacco Allergies apples, strawberries, kiwi, ma Allergy (Unknown, Uncoded 10/12/24 09:13) shortness of breath Cats, Dust mites Allergy (Unknown, Uncoded 10/12/24 09:13) per allergy testing Environmental Allergy (Unknown, Uncoded 10/12/24 09:13) per allergy testing Do you need a note to return to daycare/school/sports/work: No HPI EP-?uti HPI Details This is a 39-year-old female patient who presents to the walk-in clinic today with 3 day history of UTI symptoms. Reports pain/pressure with urination, frequency, urgency, voiding small amounts. Denies any fever, chills, or flank pain. Denies any vaginal odor/symptoms aside from a small amount of white discharge. No new sexual partners. States that her symptoms are consistent with UTIs that she has had in the past. [facility] Medical History UTI (urinary tract infection) Morbid obesity with BMI of 40.0-44.9, adult Migraine with aura Surgical History History of cholecystectomy Family History Father Diabetes mellitus Mother High cholesterol HTN (hypertension) CVD (cardiovascular disease) Brother Diabetes mellitus Asthma Maternal Grandmother Diabetes mellitus Cancer Maternal Grandfather Diabetes mellitus Cancer Paternal Grandmother Unknown family medical history Paternal Grandfather No problems noted. Maternal Aunt Breast cancer Brother No problems noted. Brother No problems noted. Sister No problems noted. Daughter No problems noted. Daughter No problems noted. Daughter No problems noted. Other Mental health disorder Substance use disorder Social History Housing: Apartment Alcohol intake: never Patient Tobacco Use Status: Never used Tobacco e-Cigarette/Vaping Use: Never Used Substance Use Type: Marijuana service: No Current occupational status: unemployed Cognitive needs: No Hearing needs: No Vision needs: Yes Female Reproductive History Menstrual Age of Menarche: 11 Review of Systems Const All systems reviewed & are unremarkable except as noted in HPI and below Physical Exam Vital Signs: Last Vital Signs Temp 97.7 F 10/12/24 09:13 Pulse 80 10/12/24 09:13 BP 126/88 10/12/24 09:13 Pulse Ox 97 10/12/24 09:13 Oxygen Delivery Method Room Air 10/12/24 09:13 Const General: cooperative, healthy appearing, comfortable and no acute distress Resp Effort & Inspection: normal respiratory effort General: Yes bladder normal to palpation and Yes no CVA tenderness Bimanual exam- vagina & uterus: bladder normal to palpation Back/Spine/Pelvis Back: no CVA tenderness Skin General skin exam: no rashes or lesions noted Extrem General: Yes no clubbing, cyanosis or edema Psych Appearance: grossly normal Mental Status: mental status grossly normal Speech and movement: Normal speech and movement present Assessment & Plan Assessment & Plan (1) Acute cystitis: Code(s): N30.00 - Acute cystitis without hematuria Qualifiers: Hematuria presence: without hematuria Qualified Code(s): N30.00 - Acute cystitis without hematuria Plan: Will start on cefuroxime empirically for UTI. We will also start on phenazopyridine for symptom management. We reviewed indications, use, possible side effects of these medications. Encouraged increased water intake, and trying to fully empty bladder when possible. If she does not improve with treatment, or if new symptoms develop, she can return to the clinic for further evaluation. Patient has a small amount of white vaginal discharge. She is concerned that she is developing a yeast infection, or will develop when following antibiotic use. Will prescribe fluconazole that she can fill if needed following antibiotic use if she develops symptoms consistent with yeast infection. She verbalizes understanding and agrees to plan. Medications: New cefuroxime axetil 500 mg PO BID 5 days 10 tabs 0RF N30.00 - Acute cystitis without hematuria fluconazole may repeat second dose 72 hrs after first dose if symptoms persist 150 mg PO Q3D 2 tabs 0RF phenazopyridine 200 mg PO TID PRN 6 tabs 0RF pain Coding Level of Care Code Est Pt Level 4 (23727) Diagnoses Acute cystitis without hematuria N30.00 Hematuria presence: without hematuria
[2024-10-12 09:13] VITALS: BP 126/88; PULSE 80; TEMP 36.5; O2SAT 97
== END 2024-10-12 09:42 | disposition home or self-care (01) ==
PROVIDERS: PCP Internal Medicine; Visit Provider Nurse Practitioner Family
DX: N30.00 Acute cystitis without hematuria (principal); Z13.9 Encounter for screening, unspecified

== ENCOUNTER → 2024-10-12 08:50 | Outpatient (BNVA) | payer OTHER, SELFPAY | PROVIDERS: PCP Internal Medicine | DX: N30.00 Acute cystitis without hematuria (principal) | CPT/HCPCS: 81003; 99212 ==

== ENCOUNTER 2024-11-13 12:22 | Outpatient (AMB) | payer OTHER, SELFPAY ==
--- NOTE | 2024-11-13 12:26 | A.OFFPC_ITS ---
Vital Signs 11/13/24 12:27 Height 5 ft 3 in Weight 203 lb 6 oz BMI 36.0 BP 126/84 Blood Pressure Location Rt brachial Position Sitting Pulse 79 Pulse Source Pulse Oximeter Temp 97.9 F Temp Source Oral Pulse Oximetry (%) 99 Oxygen Delivery Method Room Air Intake Visit Reasons: Annual PE Allergies apples, strawberries, kiwi, ma Allergy (Unknown, Uncoded 11/13/24 12:28) shortness of breath Cats, Dust mites Allergy (Unknown, Uncoded 11/13/24 12:28) per allergy testing Environmental Allergy (Unknown, Uncoded 11/13/24 12:28) per allergy testing Medication List - Last Reconciled 11/13/24 by Jadyn Tinoco MD acetaminophen (Tylenol Extra Strength) 1,000 mg (2 x 500 mg) PO QID PRN albuterol sulfate 90 mcg/actuation (Ventolin HFA) 1 inh inhalation QID PRN 30 days baclofen 10 mg PO BEDTIME duloxetine (Cymbalta) 30 mg PO DAILY 90 days epinephrine (EpiPen) 0.3 mg (0.3 mL) IM Q4H PRN gabapentin 300 mg PO BEDTIME Tobacco use date assessed: 11/13/24 Dental Screening Dental Screen Date: 11/13/24 Did you have a dental visit in the last 12 months?: Yes Did you have a dental problem in the last 6 months where you did not have access to dental care?: No Was dental information given to patient?: Patient has dentist HPI Annual PE HPI Details - The patient is a 39-year-old female pr esenting for a physical exam and review of her current medications and allergies. - Reports ongoing back pain for which e uses Baclofen daily at night. This helps manage the pain but could cause muscle weakness with long-term use. - Reports an extensive history of food a llergies including reactions to fruits, vegetables, nuts, and dairy. Allergic reactions involve throat closure and digestive disturbances. - History of eczema flaring up, potentia lly related to food allergies. - Reports weight loss, attributed to tary changes and mainly consuming meats due to inability to eat greens or fruits. - Denies shortness of breath and wheezin g. Allergies are managed with medications like Flonase. Medical History: - History of food allergies including fr uits, vegetables, nuts. - History of eczema. - Reports previous slight anemia with he moglobin of 11.8 in June. - obesity - chronic lower back pain and muscle spa sms Social History: - Reports difficulty with dietary variet y due to extensive food allergies, consuming mainly meats, cooked vegetables, beans, and dairy with lactose intolerance managed via lactase tablets. - Reports weight loss attributed to eati ng more meat - Experiencing stress related to dietary restrictions and weight management goals. Health Maintenance - Mammogram recommended as the patient i s now 39 years old. - Discussed repeating labs due to previo us anemia and for regular health check- up, to be done fasting. - Discussed dietary modification due to food allergies. Medications - Gabapentin 300 mg at bedtime for unspe cified use. - Cymbalta 30 mg for unspecified use. - Baclofen for muscle relaxation due to back pain, taken nightly. Diagnostic results - Labs: Previous hemoglobin result of 11 .8 indicating slight anemia in June. Patient Instructions - Continue to take current medications a s directed. - Try to skip Baclofen doses occasionall y if back pain is manageable to minimize muscle weakness. - Schedule and get a mammogram screening . - Complete lab tests after fasting. - Continue managing dietary allergies an d try cooked vegetables that do not cause allergic reactions. - Obtain and use clobetasol cream for ec zema flares. - medication refills sent - return for follow-up appointment in 3 months Review of Systems - General: No fever no chills - Neurological: No headaches no dizzin ess - Ear nose throat: No sore throat no hearing difficulty no ear pain - Cardiovascular: No syncope, no chest pain, no palpitations - Gastrointestinal: No nausea vomiting or diarrhea - Endocrine: No polyuria polydipsia no heat intolerance - Genitourinary: No dysuria - Skin: No new complaints Physical Exam General: Cooperative, healthy appearing, comfortable, no acute distress Orientation: Patient oriented x3 Head: Normal to inspection Ears: Within normal limit visually Nose: Normal external nose present Face and sinus: Normal facial exam Eyes: Appearance normal, extraocular movement intact pupils reactive Neck: Normal visual inspection and supple Respiratory: Normal respiratory effort and able to speak in complete sentences. Clear to auscultation, no stridor Cardiovascular: S1 and S2 RRR Breast exam through OBGYN GI: Normal to inspection. Soft to palpation and nontender Skin: Turgor normal, eczema noted, no acute findings Neuro: Patient oriented x3, motor sensory intact, balance intact, tandem pass Extremities: Normal to inspection [facility] Medical History UTI (urinary tract infection) Morbid obesity with BMI of 40.0-44.9, adult Migraine with aura Surgical History History of cholecystectomy Family History Father Diabetes mellitus Mother High cholesterol HTN (hypertension) CVD (cardiovascular disease) Brother Diabetes mellitus Asthma Maternal Grandmother Diabetes mellitus Cancer Maternal Grandfather Diabetes mellitus Cancer Paternal Grandmother Unknown family medical history Paternal Grandfather No problems noted. Maternal Aunt Breast cancer Brother No problems noted. Brother No problems noted. Sister No problems noted. Daughter No problems noted. Daughter No problems noted. Daughter No problems noted. Other Mental health disorder Substance use disorder Social History Housing: Apartment Alcohol intake: never Patient Tobacco Use Status: Never used Tobacco e-Cigarette/Vaping Use: Never Used Substance Use Type: Marijuana service: No Current occupational status: unemployed Cognitive needs: No Hearing needs: No Vision needs: Yes Female Reproductive History Menstrual Age of Menarche: 11 Questionnaire PHQ-9 Over the last 2 weeks, how often have you been bothered by any of the following problems? 1. Little interest or pleasure in doing things: several days 2. Feeling down, depressed, or hopeless: several days 3. Trouble falling or staying asleep, or sleeping too much: nearly every day 4. Feeling tired or having little energy: more than half the days 5. Poor appetite or overeating: more than half the days 6. Feeling bad about yourself - or that you are a failure or have let yourself or your family down: not at all 7. Trouble concentrating on things, such as reading the newspaper or watching television: several days 8. Moving or speaking so slowly that other people could have noticed. Or the opposite - being so fidgety or restless that you have been moving around a lot more than usual: not at all 9. Thoughts that you would be better off or of hurting yourself in some way: not at all Total score: 10 Depression Screening Interpretation: Positive Depression Screening Follow-up: Existing condition and In treatment Depression Screening Done: Yes Source: Developed by Drs. Jeremias Young, Jeri Howe, Manny Naqvi and colleagues, with an educational pacheco from [employer]. Thrive Questionnaire Date Thrive assessed: 11/13/24 I am a: Patient What is your living situation today?: I have a steady place to live Within the past 12 months, did the food you bought not last and you didn't have the money to get more?: Never true Within the past 12 months, did you worry whether your food would run out before you got money to buy more?: Never true Do you have trouble paying for medicines?: No Do you have trouble getting transportation to medical appointments?: No Do you have trouble paying your heating and electricity bill?: No Do you have trouble taking care of your child, family member or friend?: No Do you have trouble with day-to-day activities such as bathing, preparing meals, shopping, managing finances, etc.?: No Are you currently unemployed and looking for a job?: No Are you interested in more education?: No Please select the resources that you would like help with: None Currently or been in a relationship where the following occur: No concerns reported THRIVE Score: 0 AUDIT C Alcohol Use Questionnaire (AUDIT-C) 1. How often do you have a drink containing alcohol?: Never 3. How often do you have six or more drinks on one occasion?: Never Total Score: 0 Score Reviewed/Action Taken: Yes CHAU-7 AMB Questionnaire CHAU-7 Date CHAU - 7 assessed: 11/13/24 Feeling nervous, anxious, or on edge: 1 = Several days Not being able to stop or control worryin = Nearly every day Worrying too much about different things: 2 = More than half the days Trouble relaxin = More than half the days Being so restless that it is hard to sit still: 2 = More than half the days Becoming easily annoyed or irritable: 1 = Several days Feeling afraid as if something awful might happen: 0 = Not at all Total CHAU-7 score (0-4 normal; 5-9 mild; 10-14 moderate; 15-21 severe): 11 Source: Developed by Drs. Jeremias Young, Jeri Howe, Manny Naqvi and colleagues, with an educational pacheco from [employer]. Physical exam (Primary Care) Vital Signs: Last Vital Signs Temp 97.9 F 11/13/24 12:27 Pulse 79 11/13/24 12:27 BP 126/84 11/13/24 12:27 Pulse Ox 99 11/13/24 12:27 Oxygen Delivery Method Room Air 11/13/24 12:27 BMI result Body Mass Index 36.0 Tobacco/Smoking Status: Tobacco use Status Tobacco use date assessed 11/13/24 11/13/24 12:31 Patient Tobacco Use Status Never used Tobacco 11/13/24 12:31 e-Cigarette/Vaping Use Never Used 11/13/24 12:31 PHQ-9: PHQ-9 Score PHQ-9: Total score 10 11/13/24 12:52 Depression Screening Interpretation: Positive Depression Screening Follow-up: Existing condition and In treatment Thrive Assessment: Date of Thrive Assessment Date Thrive assessed 11/13/24 11/13/24 12:31 Currently or been in a relationship where the following occur: No concerns reported Coding Level of Care Code Est Pt Level 3 (45500) Est Pt Prev Care 40-64y(16765) Diagnoses Encounter for general adult medical examination with abnormal findings Z00.01 Prediabetes R73.03 Eczema intertrigo L30.4 Muscle pain M79.10 Anxiety, generalized F41.1 Recurrent major depressive disorder, in partial remission F33.41 Active/Remission status: in partial remission Environmental allergies Z91.09 Panic disorder F41.0 Class 2 obesity due to excess calories without serious comorbidity with body mass index (BMI) of 38.0 to 38.9 in adult E66.09; Z68.38 Body mass index: BMI 38.0-38.9 Obesity classification: adult class 2 (BMI 35 - 39.9) Serious obesity comorbidity presence: without serious comorbidity Multiple food allergies Z91.018 Assessment & Plan Assessment & Plan (1) Encounter for general adult medical examination with abnormal findings: Code(s): Z00.01 - Encounter for general adult medical examination with abnormal findings Category: Medical (2) Prediabetes: Code(s): R73.03 - Prediabetes Category: Medical (3) Eczema intertrigo: Code(s): L30.4 - Erythema intertrigo Category: Medical (4) Muscle pain: Code(s): M79.10 - Myalgia, unspecified site Category: Medical (5) Anxiety, generalized: Code(s): F41.1 - Generalized anxiety disorder Category: Medical (6) Major depression, recurrent: Code(s): F33.9 - Major depressive disorder, recurrent, unspecified Category: Medical Qualifiers: Active/Remission status: in partial remission Qualified Code(s): F33.41 - Major depressive disorder, recurrent, in partial remission (7) Environmental allergies: Code(s): Z91.09 - Other allergy status, other than to drugs and biological substances Category: Medical (8) Panic disorder: Code(s): F41.0 - Panic disorder [episodic paroxysmal anxiety] Category: Medical (9) Obesity due to excess calories: Code(s): E66.09 - Other obesity due to excess calories Category: Medical Qualifiers: Body mass index: BMI 38.0-38.9 Obesity classification: adult class 2 (BMI 35 - 39.9) Serious obesity comorbidity presence: without serious comorbidity Qualified Code(s): E66.09 - Other obesity due to excess calories; Z68.38 - Body mass index [BMI] 38.0-38.9, adult (10) Multiple food allergies: Code(s): Z91.018 - Allergy to other foods Category: Medical Plan - The patient is a 39-year-old female presenting for a physical exam and review of her current medications and allergies. - Reports ongoing back pain for which she uses Baclofen daily at night. This helps manage the pain but could cause muscle weakness with long-term use. - Reports an extensive history of food allergies including reactions to fruits, vegetables, nuts, and dairy. Allergic reactions involve throat closure and digestive disturbances. - History of eczema flaring up, potentially related to food allergies. - Reports weight loss, attributed to dietary changes and mainly consuming meats due to inability to eat greens or fruits. - Denies shortness of breath and wheezing. Allergies are managed with medications like Flonase. Medical History: - History of food allergies including fruits, vegetables, nuts. - History of eczema. - Reports previous slight anemia with hemoglobin of 11.8 in June. - obesity - chronic lower back pain and muscle spasms Social History: - Reports difficulty with dietary variety due to extensive food allergies, consuming mainly meats, cooked vegetables, beans, and dairy with lactose intolerance managed via lactase tablets. - Reports weight loss attributed to eating more meat - Experiencing stress related to dietary restrictions and weight management goals. Health Maintenance - Mammogram recommended as the patient is now 39 years old. - Discussed repeating labs due to previous anemia and for regular health check- up, to be done fasting. - Discussed dietary modification due to food allergies. Medications - Gabapentin 300 mg at bedtime for unspecified use. - Cymbalta 30 mg for unspecified use. - Baclofen for muscle relaxation due to back pain, taken nightly. Diagnostic results - Labs: Previous hemoglobin result of 11.8 indicating slight anemia in June. Patient Instructions - Continue to take current medications as directed. - Try to skip Baclofen doses occasionally if back pain is manageable to minimize muscle weakness. - Schedule and get a mammogram screening. - Complete lab tests after fasting. - Continue managing dietary allergies and try cooked vegetables that do not cause allergic reactions. - Obtain and use clobetasol cream for eczema flares. - medication refills sent - return for follow-up appointment in 3 months Orders: Orders Complete Blood Count Auto Diff Today E66.09 - Other obesity due to excess calories, F33.41 - Major depressive disorder, recurrent, in partial remission, F41.0 - Panic disorder [episodic paroxysmal anxiety], F41.1 - Generalized an xiety disorder, L30.4 - Erythema intertrigo, M79.10 - Myalgia, unspecified site, R73.03 - Prediabetes, Z00.01 - Encounter for general adult medical examination with abnormal findings, Z68.38 - Body mass index [BMI] 38.0-38.9, adult, Z91.09 - Other allergy status, other than to drugs and biological substances Comprehensive Rufus. Panel Fast Today E66.09 - Other obesity due to excess calories, F33.41 - Major depressive disorder, recurrent, in partial remission, F41.0 - Panic disorder [episodic paroxysmal anxiety], F41.1 - Generalized anxiety disorder, L30.4 - Erythema intertrigo, M79.10 - Myalgia, unspecified site, R73.03 - Prediabetes, Z00.01 - Encounter for general adult medical examination with abnormal findings, Z68.38 - Body mass index [BMI] 38.0-38.9, adult, Z91.09 - Other allergy status, other than to drugs and biological substances Lipid Panel Today E66.09 - Other obesity due to excess calories, F33.41 - Major depressive disorder, recurrent, in partial remission, F41.0 - Panic disorder [episodic paroxysmal anxiety], F41.1 - Generalized anxiety disorder, L30.4 - Erythema intertrigo, M79.10 - Myalgia, unspecified site, R73.03 - Prediabetes, Z00.01 - Encounter for general adult medical examination with abnormal findings, Z68.38 - Body mass index [BMI] 38.0-38.9, adult, Z91.09 - Other allergy status, other than to drugs and biological substances MM tomosynthesis screening BI Today Z12.31 - Encounter for screening mammogram for malignant neoplasm of breast Vitamin D 25-OH (D2 and D3) Today E66.09 - Other obesity due to excess calories, F33.41 - Major depressive disorder, recurrent, in partial remission, F41.0 - Panic disorder [episodic paroxysmal anxiety], F41.1 - Generalized anxiety disorder, L30.4 - Erythema intertrigo, M79.10 - Myalgia, unspecified site, R73.03 - Prediabetes, Z00.01 - Encounter for general adult medical examination with abnormal findings, Z68.38 - Body mass index [BMI] 38.0-38.9, adult, Z91.09 - Other allergy status, other than to drugs and biological substances Vitamin B12 Today E66.09 - Other obesity due to excess calories, F33.41 - Major depressive disorder, recurrent, in partial remission, F41.0 - Panic disorder [episodic paroxysmal anxiety], F41.1 - Generalized anxiety disorder, L30.4 - Erythema intertrigo, M79.10 - Myalgia, unspecified site, R73.03 - Prediabetes, Z00.01 - Encounter for general adult medical examination with abnormal findings, Z68.38 - Body mass index [BMI] 38.0-38.9, adult, Z91.09 - Other allergy status, other than to drugs and biological substances TSH reflex Free T4 Today E66.09 - Other obesity due to excess calories, F33.41 - Major depressive disorder, recurrent, in partial remission, F41.0 - Panic disorder [episodic paroxysmal anxiety], F41.1 - Generalized anxiety disorder, L30.4 - Erythema intertrigo, M79.10 - Myalgia, unspecified site, R73.03 - Prediabetes, Z00.01 - Encounter for general adult medical examination with abnormal findings, Z68.38 - Body mass index [BMI] 38.0-38.9, adult, Z91.09 - Other allergy status, other than to drugs and biological substances Hemoglobin A1c Today R73.03 - Prediabetes Medications: New clobetasol 0.05% 1 appl topical BID 60 grams 1RF 2 weeks Refilled gabapentin 300 mg PO BEDTIME 90 caps 0RF baclofen 10 mg PO BEDTIME 90 tabs 0RF Muscle relaxer
[2024-11-13 12:27] VITALS: BP 126/84; PULSE 79; TEMP 36.6; O2SAT 99; BMI 36.0
== END 2024-11-13 12:51 | disposition home or self-care (01) ==
LOC: HO.HMCC 12:23
PROVIDERS: PCP Internal Medicine; Visit Provider Internal Medicine
DX: Z00.01 Encounter for general adult medical examination with abnormal findings (principal); R73.03 Prediabetes; L30.4 Erythema intertrigo; M79.10 Myalgia, unspecified site; F41.1 Generalized anxiety disorder; F33.41 Major depressive disorder, recurrent, in partial remission; Z91.09 Other allergy status, other than to drugs and biological substances; F41.0 Panic disorder [episodic paroxysmal anxiety]; E66.09 Other obesity due to excess calories; Z68.38 Body mass index [BMI] 38.0-38.9, adult; Z91.018 Allergy to other foods

== ENCOUNTER → 2024-11-13 12:22 | Outpatient (BNVA) | payer OTHER, SELFPAY | PROVIDERS: PCP Internal Medicine; Visit Provider Internal Medicine | DX: Z13.89 Encounter for screening for other disorder (principal) ==

== ENCOUNTER 2024-11-20 08:47 | Outpatient (AMB) | payer OTHER, SELFPAY ==
--- NOTE | 2024-11-20 08:52 | AM.OFFWIN_ITS ---
Intake Vital Signs 11/20/24 08:53 Weight 202 lb BP 110/78 Blood Pressure Location Rt brachial Position Sitting Pulse 71 Pulse Source Pulse Oximeter Pulse Oximetry (%) 95 Oxygen Delivery Method Room Air Intake Visit Reasons: EP-lump behind both ears Intake Note: Patient here for lumps behind bilat ears that she noticed yesterday. Patient Tobacco Use Status: Never used Tobacco Allergies apples, strawberries, kiwi, ma Allergy (Unknown, Uncoded 11/20/24 08:53) shortness of breath Cats, Dust mites Allergy (Unknown, Uncoded 11/20/24 08:53) per allergy testing Environmental Allergy (Unknown, Uncoded 11/20/24 08:53) per allergy testing HPI HPI Comments History of Present Illness Details History of Present Illness - The patient is a 39-year-old female pr esenting with ear discomfort and enlarged lymph nodes. - Symptoms started suddenly yesterday mo rning, with noticeable lymph node enlargement. - Ear discomfort involves sensation of f ullness and heightened sensitivity in the left ear. - No significant ear pain, infection, or sinus issues have been noted. - The patient manages severe allergies r egularly without significant congestion or respiratory symptoms. - The lymph nodes are described as firm and enlarged behind both ears. - Scalp irritation is present without an y notable new hair care practices. - She has no sick contacts. She has neve r had this before. - She denies fever, chills, HUITRON, sore thr oat, post nasal drip, discharge from the ears, abd pain, n/v/d. Physical Exam General: Cooperative, healthy appearing, comfortable, no acute distress and well developed Orientation: Patient oriented x3 Head: Normal to inspection, scalp no dandruff present Ears: Hearing grossly normal. Right ear canal has cerumen noted, normal TM. Left ear is clear, no erythema, effusion noted. TM is not bulging. Nose: Normal external nose present Face and sinus: Normal facial exam, no sinus pain to palpation Eyes: Appearance normal, both eyes and all related structures Neck: Normal visual inspection and Yes full ROM, large, tender, enlarged lymph nodes noted postauricular bilaterally. Respiratory: Normal respiratory effort and able to speak in complete sentences. Clear to auscultation bilaterally Cardiovascular: Regular rate and rhythm. Normal S1 and S2 Skin: No rashes or lesions noted Neuro: Patient oriented x3 Patient was informed and verbally consented to the use of an ambient scribe for clinic note documentation during this visit. [facility] Medical History UTI (urinary tract infection) Morbid obesity with BMI of 40.0-44.9, adult Migraine with aura Surgical History History of cholecystectomy Family History Father Diabetes mellitus Mother High cholesterol HTN (hypertension) CVD (cardiovascular disease) Brother Diabetes mellitus Asthma Maternal Grandmother Diabetes mellitus Cancer Maternal Grandfather Diabetes mellitus Cancer Paternal Grandmother Unknown family medical history Paternal Grandfather No problems noted. Maternal Aunt Breast cancer Brother No problems noted. Brother No problems noted. Sister No problems noted. Daughter No problems noted. Daughter No problems noted. Daughter No problems noted. Other Mental health disorder Substance use disorder Social History Housing: Apartment Alcohol intake: never Patient Tobacco Use Status: Never used Tobacco e-Cigarette/Vaping Use: Never Used Substance Use Type: Marijuana service: No Current occupational status: unemployed Cognitive needs: No Hearing needs: No Vision needs: Yes Female Reproductive History Menstrual Age of Menarche: 11 Review of Systems Const All systems reviewed & are unremarkable except as noted in HPI and below Physical Exam Vital Signs: Last Vital Signs Pulse 71 11/20/24 08:53 BP 110/78 11/20/24 08:53 Pulse Ox 95 11/20/24 08:53 Oxygen Delivery Method Room Air 11/20/24 08:53 Assessment & Plan Assessment & Plan (1) Postauricular adenopathy: Code(s): R59.0 - Localized enlarged lymph nodes Plan Most likely postauricular adenopathy, due to early otitis? Plan - Diagnose potential infection or allergy-related causes for symptoms. - Will treat with Augmentin BID for 10 days. - Prednisone burst for 5 days. - Tylenol or Motrin as needed for pain or fever. - Encourage continued allergy management. - Monitor symptoms and reassess if conditions change. - Advised follow up with PCP in one week to recheck. - May need further testing such as CT vs ultrasound to assess the lymph nodes. Medications: New amoxicillin-pot clavulanate 875-125 mg 1 tab PO Q12H 10 days 20 tabs 0RF prednisone 40 mg (2 x 20 mg) PO DAILY 10 tabs 0RF Coding Level of Care Code Est Pt Level 3 (13561) Diagnoses Postauricular adenopathy R59.0
[2024-11-20 08:53] VITALS: BP 110/78; PULSE 71; O2SAT 95
== END 2024-11-20 10:31 | disposition home or self-care (01) ==
PROVIDERS: PCP Internal Medicine; Visit Provider Physician Assistant Medical
DX: R59.0 Localized enlarged lymph nodes (principal)

== ENCOUNTER → 2024-11-20 08:47 | Outpatient (BNVA) | payer OTHER, SELFPAY | PROVIDERS: PCP Internal Medicine; Visit Provider Physician Assistant Medical | DX: R59.0 Localized enlarged lymph nodes (principal) | CPT/HCPCS: 99212 ==

== ENCOUNTER 2024-11-22 10:21 | Outpatient (AMB) | payer OTHER, SELFPAY ==
[2024-11-22 10:28] VITALS: BP 122/78; BMI 36.3
--- NOTE | 2024-11-22 10:28 | A.OFFVIS_ITS ---
Vital Signs 11/22/24 10:28 Height 5 ft 3 in Weight 205 lb BMI 36.3 BP 122/78 Blood Pressure Location Rt brachial Position Sitting Intake Visit Reasons: MASS SPECTROSCOPIST annual exam Director Smb Sales Required: No Information Interpreted: clinical only (Kalli) Allergies apples, strawberries, kiwi, ma Allergy (Unknown, Uncoded 11/22/24 10:30) shortness of breath Cats, Dust mites Allergy (Unknown, Uncoded 11/22/24 10:30) per allergy testing Environmental Allergy (Unknown, Uncoded 11/22/24 10:30) per allergy testing Medication List - Last Reconciled 11/22/24 by Adri Neves LPN acetaminophen (Tylenol Extra Strength) 1,000 mg (2 x 500 mg) PO QID PRN albuterol sulfate 90 mcg/actuation (Ventolin HFA) 1 inh inhalation QID PRN 30 days amoxicillin-pot clavulanate 875-125 mg 1 tab PO Q12H 10 days baclofen 10 mg PO BEDTIME clobetasol 0.05% 1 appl topical BID 2 weeks duloxetine (Cymbalta) 30 mg PO DAILY 90 days epinephrine (EpiPen) 0.3 mg (0.3 mL) IM Q4H PRN gabapentin 300 mg PO BEDTIME prednisone 40 mg (2 x 20 mg) PO DAILY Is last menstrual period known: Yes Last menstrual period: 11/14/24 Post menopausal: No Patient : No Do you need a note to return to daycare/school/sports/work: No HPI Comments Details: She is a premenopausal woman presenting for annual examination. Doing well with scabbler concerns: frequency of urination, discharge, odor, itching. and pelvic pressure. Regular monthly menses x 5-7d. Currently is sexually active, uses withdrawal method. Not interested in control. She denies vaginal itching or irritation. She tries to eat healthy and stays active with exercise. FH ovarian/breast cancer. Last pap smear 2018, negative. Mammogram: to be booked [facility] Medical History Vaginal itching Pelvic pressure in female UTI (urinary tract infection) Morbid obesity with BMI of 40.0-44.9, adult Migraine with aura Surgical History History of cholecystectomy Family History Father Diabetes mellitus Mother High cholesterol HTN (hypertension) CVD (cardiovascular disease) Brother Diabetes mellitus Asthma Maternal Grandmother Diabetes mellitus Cancer Maternal Grandfather Diabetes mellitus Cancer Paternal Grandmother Unknown family medical history Paternal Grandfather No problems noted. Maternal Aunt Breast cancer Brother No problems noted. Brother No problems noted. Sister No problems noted. Daughter No problems noted. Daughter No problems noted. Daughter No problems noted. Other Mental health disorder Substance use disorder Social History Housing: Apartment Alcohol intake: never Patient Tobacco Use Status: Never used Tobacco e-Cigarette/Vaping Use: Never Used Substance Use Type: Marijuana Patient : No service: No Current occupational status: unemployed Cognitive needs: No Hearing needs: No Vision needs: Yes Female Reproductive History Menstrual Age of Menarche: 11 Duration of menses: 6-7 days Date of last menstrual period: 11/14/24 control method: none Total pregnancies: 3 Full term: 3 Number of Living Children: 3 Date of last pap smear: 11/14/18 (neg pap and hpv) History of abnormal pap smear: No History of STI: No Review of Systems Const All systems reviewed & are unremarkable except as noted in HPI and below Reports as per HPI Eyes Reports no additional complaints ENT Reports no additional complaints Card Reports no additional complaints Resp Reports no additional complaints GI Reports as per HPI and Reports no additional complaints Reports as per HPI Musc Reports no additional complaints Skin/Breast Reports as per HPI Neuro Reports no additional complaints Psych Reports no additional complaints Endo Reports no additional complaints Sedrick/Lymph Reports no additional complaints Aller/Immun Reports no additional complaints Physical Exam Vital Signs: Last Vital Signs BP 122/78 11/22/24 10:28 BMI result Body Mass Index 36.3 Const General: cooperative, healthy appearing, no acute distress, well developed and alert Orientation/consciousness: patient oriented x3 HEENT Head: Yes normal to inspection Eyes General: appearance normal, both eyes and all related structures Neck Neck: Yes normal visual inspection Thyroid: Thyroid normal Chest Chest palpation & inspection: normal inspection of the chest and other (no puckering, dimpling, peau de orange, retraction, discharge, masses) Breast/axilla inspection: normal inspection of the breasts Breast/axilla palpation: normal palpation of the breasts Resp Effort & Inspection: normal respiratory effort GI Inspection: Yes normal to inspection Palpation (GI): Soft to palpation Rectal Exam - Female: deferred General: Yes bladder normal to palpation External Female Exam: normal external appearance and normal appearance of the urethra Speculum Exam - Vagina: normal appearance of the vagina, normal palpation and normal vaginal discharge Speculum Exam - Cervix: normal appearance of the cervix, normal palpation and Other cervical findings present (Small mount of blood at the os) Bimanual exam- vagina & uterus: normal bimanual exam, normal palpation, uterine size normal, bladder normal to palpation, normal palpation and non-tender Bimanual Exam- Adnexa, other: no masses Skin General skin exam: no rashes or lesions noted Rashes: no rashes Neuro General: patient oriented x3 Cognition (Neuro): normal cognition Extrem General: Yes normal to inspection Psych Attitude: cooperative Thought process: Normal thought process present Results AMB Urinalysis, Automated UA Leukoctes 0 Judit/uL Last Edit by KARLOS Mena on 11/22/24 11:21 UA Nitrite Negative Last Edit by KARLOS Mena on 11/22/24 11:21 UA Urobilinogen 0 mg/dL Last Edit by KARLOS Mena on 11/22/24 11:2 1 UA Protein 0 mg/dL Last Edit by KARLOS Mena on 11/22/24 11:21 UA pH 6.0 Last Edit by KARLOS Mena on 11/22/24 11:21 UA Blood 0 Jon/uL Last Edit by KARLOS Mena on 11/22/24 11:21 UA Specific [place] 1.015 Last Edit by KARLOS Mena on 11/22/24 11:21 UA Ketone Negative Last Edit by KARLOS Mena on 11/22/24 11:21 UA Bilirubin 0 mg/dL Last Edit by KARLOS Mena on 11/22/24 11:21 UA Glucose 0 mg/dL Last Edit by KARLOS Mena on 06/12/25 11:21 AMB Test Urine AMB Test Urine Negative Last Edit by KARLOS Mena on 11/22/24 11:21 Assessment & Plan Assessment & Plan (1) Encounter for annual routine gynecological examination: Code(s): Z01.419 - Encounter for gynecological examination (general) (routine) without abnormal findings Category: Medical Plan: Discussed: Current recommendations for pap smears per ASCCP guidelines. Pap obtained. Breast awareness and periodic breast exams. Mammogram yearly. Maintain a healthy lifestyle including a well balanced diet and routine exercise. Patient verbalizes understanding and agrees to the plan of care. She was given opportunity to ask questions and all questions were answered to the best of my ability. RTO in one year for annual scabbler examination. This note is constructed using voice recognition software. While every effort has been made to ensure accuracy, facilities mechanical design engineer errors may have been included. (2) Frequency of urination: Code(s): R35.0 - Frequency of micturition Plan: Urine dip is negative. Continue to hydrate well. The patient expressed understanding and agreement with the plan of care. All of her questions and concerns were addressed to the best of my ability. This note is constructed using voice recognition software. While every effort has been made to ensure accuracy, facilities mechanical design engineer errors may have been included. (3) Pelvic pressure in female: Code(s): R10.2 - Pelvic and perineal pain Category: Medical Plan: GC chlamydia, BV panel obtained, UPT is negative. Plan ultrasound of the pelvis, follow up in person for test results. The patient expressed understanding and agreement with the plan of care. All of her questions and concerns were addressed to the best of my ability. Total time I personally spent on visit and management today: ?20 minutes. Time spent included review of pertinent office notes in the electronic health record; review of laboratory and imaging results; review of personal family medical history; performing physical exam; discussing diagnosis and plan of care with the patient; documenting the encounter in the EMR. Orders: Orders Bacterial Vaginosis Panel Today Z20.2 - Contact with and (suspected) exposure to infections with a predominantly sexual mode of transmission Pap Smear Today Z01.419 - Encounter for gynecological examination (general) (routine) without abnormal findings HPV High risk Today Z01.419 - Encounter for gynecological examination (general) (routine) without abnormal findings AMB Urinalysis Automated Today R30.0 - Dysuria US pelvic and transvaginal Today R10.2 - Pelvic and perineal pain CT NG by PCR Today Z20.2 - Contact with and (suspected) exposure to infections with a predominantly sexual mode of transmission AMB HCG Urine Test Today Z32.02 - Encounter for test, result negative Coding Level of Care Code Est Pt Level 2 (83394) Est Pt Prev Care 40-64y(48109) Diagnoses Encounter for annual routine gynecological examination Z01.419 Frequency of urination R35.0 Pelvic pressure in female R10.2
== END 2024-11-22 13:18 | disposition home or self-care (01) ==
LOC: HO.HWS 10:22
PROVIDERS: PCP Internal Medicine; Visit Provider Advanced Practice Midwife
DX: Z01.419 Encounter for gynecological examination (general) (routine) without abnormal findings (principal); R35.0 Frequency of micturition; R10.2 Pelvic and perineal pain; R30.0 Dysuria; Z32.02 Encounter for pregnancy test, result negative
CPT/HCPCS: 99212; 99396; 99459

== ENCOUNTER 2024-11-22 10:21 | Outpatient (REF) | payer OTHER, SELFPAY ==
[2024-11-22 14:02] LABS: Bacterial Vaginosis PCR POSITIVE (Negative); Candida Group PCR NOT DETECTED (Not Detect); Candida glab krusei PCR NOT DETECTED (Not Detect); Trichomonas vaginalis PCR NOT DETECTED (Not Detect)
[2024-11-22 14:35] LABS: CT PCR NOT DETECTED (Not Detect.); NG PCR NOT DETECTED (Not Detect.)
[2024-11-28 09:06] LABS: HPV Genotype 16 Negative (Negative); HPV Genotype 18 Negative (Negative); HPV High Risk Negative (Negative)
== END 2024-11-22 10:22 | disposition home or self-care (01) ==
LOC: HO.LNP 10:21
PROVIDERS: PCP Internal Medicine; Visit Provider Advanced Practice Midwife
DX: Z01.419 Encounter for gynecological examination (general) (routine) without abnormal findings (principal); Z20.2 Contact with and (suspected) exposure to infections with a predominantly sexual mode of transmission
CPT/HCPCS: 81003; 81025; 81515; 87491; 87591; 87626; 88175; 99212; 99396; 99459

== ENCOUNTER 2024-12-06 10:28 | Outpatient (AMB) | payer OTHER, SELFPAY ==
[2024-12-06 10:35] VITALS: BP 124/86; PULSE 72; TEMP 37.1; O2SAT 96; BMI 35.4
--- NOTE | 2024-12-06 10:35 | MHC.OFFWIV ---
Intake Vital Signs 12/06/24 10:35 Height 5 ft 3 in Weight 200 lb BMI 35.4 BP 124/86 Blood Pressure Location Lt brachial Position Sitting Pulse 72 Pulse Source Pulse Oximeter Temp 98.7 F Temp Source Oral Pulse Oximetry (%) 96 Oxygen Delivery Method Room Air Intake Visit Reasons: EP-bug spot back of head Intake Note: pt presents today with concern for hair loss and bald spots back of scalp. She states she noticed thinning hair for 1 yr+, the other day she put her hair in pig tails and noticed lots of bald spots. Patient Tobacco Use Status: Never used Tobacco Allergies apples, strawberries, kiwi, ma Allergy (Unknown, Uncoded 11/22/24 10:30) shortness of breath Cats, Dust mites Allergy (Unknown, Uncoded 11/22/24 10:30) per allergy testing Environmental Allergy (Unknown, Uncoded 11/22/24 10:30) per allergy testing Do you need a note to return to daycare/school/sports/work: No HPI HPI Comments History of Present Illness Details History of Present Illness - The patient is a 39-year-old female presenting with hair loss. - Hair loss has been ongoing for awhile, with noticeable thinning and bald patches, particularly at the back of the head. - The patient reports no associated rashes, and hair follicles appear to be normal. - She states that it does hurt when touched. - It is most noticeable when she puts her hair up or ary it. - The patient suspects anemia may be contributing to the hair loss, although no thyroid issues have been identified. - The patient has a history of eczema and allergies. - The patient experiences significant stress, which she believes may be impacting her hair condition. - She does not use hair products or dyes. She has no new shampoos. - She denies wt loss, wt gain, dry skin, palpitations, sweating, rashes or lesions. - She denies fever, chills, joint pain, CP, SOB, abd pain, n/v/d. Physical Exam General: Cooperative, healthy appearing, comfortable, no acute distress and well developed. Tearful Orientation: Patient oriented x3 Head: Hair thinning observed. Areas of alopecia noted in the occipital region. No dandruff noted, no flaking. No rashes noted. Respiratory: Normal respiratory effort and able to speak in complete sentences. Clear to auscultation bilaterally Cardiovascular: Regular rate and rhythm. Normal S1 and S2 Skin: No rashes or lesions noted Patient was informed and verbally consented to the use of an ambient scribe for clinic note documentation during this visit. [facility] Medical History Vaginal itching Pelvic pressure in female UTI (urinary tract infection) Morbid obesity with BMI of 40.0-44.9, adult Migraine with aura Surgical History History of cholecystectomy Family History Father Diabetes mellitus Mother High cholesterol HTN (hypertension) CVD (cardiovascular disease) Brother Diabetes mellitus Asthma Maternal Grandmother Diabetes mellitus Cancer Maternal Grandfather Diabetes mellitus Cancer Paternal Grandmother Unknown family medical history Paternal Grandfather No problems noted. Maternal Aunt Breast cancer Brother No problems noted. Brother No problems noted. Sister No problems noted. Daughter No problems noted. Daughter No problems noted. Daughter No problems noted. Other Mental health disorder Substance use disorder Social History Housing: Apartment Alcohol intake: never Patient Tobacco Use Status: Never used Tobacco e-Cigarette/Vaping Use: Never Used Substance Use Type: Marijuana service: No Current occupational status: unemployed Cognitive needs: No Hearing needs: No Vision needs: Yes Female Reproductive History Menstrual Age of Menarche: 11 Review of Systems Const All systems reviewed & are unremarkable except as noted in HPI and below Physical Exam Vital Signs: Last Vital Signs Temp 98.7 F 12/06/24 10:35 Pulse 72 12/06/24 10:35 BP 124/86 12/06/24 10:35 Pulse Ox 96 12/06/24 10:35 Oxygen Delivery Method Room Air 12/06/24 10:35 BMI result Body Mass Index 35.4 Assessment & Plan Assessment & Plan (1) Hair loss: Code(s): L65.9 - Nonscarring hair loss, unspecified Plan Most likely stress vs thyroid issues vs vitamin deficiency vs anemia vs medication reaction Plan - Laboratory tests will be conducted to assess anemia and thyroid function. - Referral to a custom stock maker for further evaluation of hair loss. - Needs to follow up with PCP. - Will make her a follow up appt. Orders: Orders TSH reflex Free T4 Today L65.9 - Nonscarring hair loss, unspecified Complete Blood Count Auto Diff Today L65.9 - Nonscarring hair loss, unspecified Comprehensive Met. Panel Today L65.9 - Nonscarring hair loss, unspecified Referrals Dermatology Referral L65.9 - Nonscarring hair loss, unspecified Coding Level of Care Code Est Pt Level 4 (64556) Diagnoses Hair loss L65.9
== END 2024-12-06 11:58 | disposition home or self-care (01) ==
PROVIDERS: PCP Internal Medicine; Visit Provider Physician Assistant Medical
DX: L65.9 Nonscarring hair loss, unspecified (principal)

== ENCOUNTER 2024-12-06 11:27 | Outpatient (REF) | payer OTHER, SELFPAY ==
--- NOTE | ~2024-12-06 | MM_ITS ---
EXAMINATION: MM SCREENING DIGITAL BREAST TOMOSYNTHESIS, BILATERAL CLINICAL INFORMATION: Screening. Asymptomatic. COMPARISON: Mammography: Baseline. TECHNIQUE: Digital breast mammography with tomosynthesis is performed in both the craniocaudal and mediolateral oblique views along with computer-aided detection (CAD). FINDINGS: The breasts are heterogeneously dense, which may obscure small masses (ACR BI-RADS breast composition Category c). There are no significant masses, abnormal calcifications, or other abnormalities. MM/MM tomosynthesis screening BI IMPRESSION: No mammographic evidence of malignancy. ASSESSMENT: BI-RADS BI-RADS 1 - Negative RECOMMENDATION: Routine annual mammography screening. 1 year F/U This examination should not preclude the clinical evaluation of a suspicious palpable abnormality. This patient's information was entered into a reminder system with a target due date for their next mammogram. Electronically signed by: Natalia Joyner DO 12/22/2024 04:51 PM EDT
[2024-12-06 13:17] LABS: MANUAL DIFF FLAG NO
[2024-12-06 13:22] LABS: Basophils Percent Auto 0.3 % (0-2); Eosinophils Absolute Auto 0.2 X10*3/uL (0.0-0.4); Eosinophils Percent Auto 2.8 % (0-4); Hemoglobin 13.8 g/dl (12.0-16.0); Imm Gran Abs Auto 0.02 X10*3/uL (0.00-0.03); Imm Gran Pct Auto 0.3 % (0.0-0.4); Lymphocytes Absolute Auto 1.8 X10*3/uL (1.2-4.9); Lymphocytes Percent Auto 28.7 % (20-40); Mean Corpuscular HGB Conc 35.4 g/dl (31.0-35.0); Mean Corpuscular Hemoglobin 32.2 pg (27.0-33.0); Mean Corpuscular Volume 90.9 fL (80.0-98.0); Mean Platelet Volume 10.9 fL (9.4-12.3); Monocytes Absolute Auto 0.4 X10*3/uL (0.1-1.2); Monocytes Percent Auto 5.8 % (2-11); Neutrophils Percent Auto 62.1 % (45-73); Platelet Count 245 X10*3/uL (160-400); Red Blood Count 4.29 X10*6/uL (4.20-5.50); White Blood Count 6.4 X10*3/uL (4.8-10.8)
[2024-12-06 13:39] LABS: Alanine Aminotransferase 19 U/L (0-31); Albumin Level 4.2 g/dL (3.5-5.0); Alkaline Phosphatase 55 U/L (39-117); Anion Gap 9 (12-20); Aspartate Amino Transferase 15 U/L (5-31); Bilirubin Total 0.7 mg/dL (0.0-1.0); Blood Urea Nitrogen 10 mg/dL (9-16); Calcium 8.7 mg/dL (8.4-10.2); Carbon Dioxide 24 mmol/L (22-29); Chloride 108 mmol/L (96-108); Cholesterol 178 mg/dL (<200); Estimated Average Glucose 97 mg/dL; Estimated Glomerular Filt Rate > 60; Glucose Fasting 108 mg/dL (60-99); HDL Cholesterol 40 mg/dL (>40); LDL Cholesterol Calculated 122 mg/dL (<100); Potassium 3.4 mmol/L (3.3-5.1); Sodium 138 mmol/L (135-145); Total Protein 6.7 g/dL (6.5-8.0); Triglycerides 80 mg/dL (<150)
[2024-12-06 14:00] LABS: Vitamin B12 277 pg/mL (200-900)
[2024-12-10 16:33] LABS: Vitamin D 25-OH, D2 <4 ng/mL; Vitamin D 25-OH, D3 27 ng/mL; Vitamin D 25-OH, Total 27 ng/mL (30-100)
== END 2024-12-06 11:28 | disposition home or self-care (01) ==
LOC: HO.MAMMO 11:27
PROVIDERS: PCP Internal Medicine; Visit Provider Internal Medicine
DX: Z12.31 Encounter for screening mammogram for malignant neoplasm of breast (principal); L65.9 Nonscarring hair loss, unspecified; Z00.01 Encounter for general adult medical examination with abnormal findings; L30.4 Erythema intertrigo; M79.10 Myalgia, unspecified site; F41.1 Generalized anxiety disorder; F41.0 Panic disorder [episodic paroxysmal anxiety]; F33.41 Major depressive disorder, recurrent, in partial remission; E66.09 Other obesity due to excess calories; Z68.38 Body mass index [BMI] 38.0-38.9, adult; R73.03 Prediabetes; Z91.09 Other allergy status, other than to drugs and biological substances
CPT/HCPCS: 36415; 77063; 77067; 80053; 80061; 82306; 82607; 83036; 84443; 85025; 99212

== ENCOUNTER → 2024-12-06 16:15 | Outpatient (BNV) | payer OTHER, SELFPAY | PROVIDERS: PCP Internal Medicine; Visit Provider Internal Medicine | DX: Z12.31 Encounter for screening mammogram for malignant neoplasm of breast (principal) | CPT/HCPCS: 77063; 77067 ==

== ENCOUNTER 2024-12-18 13:12 | Outpatient (AMB) | payer OTHER, SELFPAY ==
[2024-12-18 13:16] VITALS: BP 110/78; PULSE 81; O2SAT 98; BMI 35.5
--- NOTE | 2024-12-18 13:16 | A.OFFPC_ITS ---
Vital Signs 12/18/24 13:16 Height 5 ft 3 in Weight 200 lb 4 oz BMI 35.5 BP 110/78 Blood Pressure Location Lt brachial Position Sitting Pulse 81 Pulse Source Pulse Oximeter Pulse Oximetry (%) 98 Oxygen Delivery Method Room Air Intake Visit Reasons: hair loss Allergies apples, strawberries, kiwi, ma Allergy (Unknown, Uncoded 11/22/24 10:30) shortness of breath Cats, Dust mites Allergy (Unknown, Uncoded 11/22/24 10:30) per allergy testing Environmental Allergy (Unknown, Uncoded 11/22/24 10:30) per allergy testing Medication List - Last Reconciled 12/18/24 by Jadyn Tinoco MD acetaminophen (Tylenol Extra Strength) 1,000 mg (2 x 500 mg) PO QID PRN albuterol sulfate 90 mcg/actuation (Ventolin HFA) 1 inh inhalation QID PRN 30 days baclofen 10 mg PO BEDTIME clobetasol 0.05% 1 appl topical BID 2 weeks duloxetine (Cymbalta) 30 mg PO DAILY 90 days epinephrine (EpiPen) 0.3 mg (0.3 mL) IM Q4H PRN gabapentin 300 mg PO BEDTIME Tobacco use date assessed: 11/13/24 Dental Screening Dental Screen Date: 11/13/24 HPI hair loss HPI Details History - The patient is a 39-year-old female pr esenting with hair loss. - She reports significant hair thinning and the presence of bald spots. - The thinning of hair has been noticed over an unspecified period. - Bald spots became noticeable approxima tely three to four weeks ago. - Patient reports experiencing emotional stress; fever is absent. - No recent major illnesses in the past four months have been reported. Medical History: - Prediabetes Diagnostic Results: - Labs: - CBC: Normal; Hemoglobin: Mena l - White blood cell count: Normal; Blood count: Normal - Electrolytes: Normal; Kidney function: Normal - Fasting glucose: 108 mg/dL (Prediabete s) - Hemoglobin A1c: 5.0% (Normal) - Liver enzymes: Normal - Cholesterol: Normal; LDL: 122 mg/dL - Vitamin D: Low - Vitamin B12: Normal - Thyroid function: Normal Problem List - Hair loss - Emotional stress - Prediabetes - Vitamin D deficiency - vitamin B12 deficiency Patient Instructions - Massage the prescribed lotion into you r scalp and wash it out in the morning. Cuthbert smooth - Schedule an appointment with the luther tologist for further evaluation. - Contact [facility] and neal ok your appointment with them. - Use vitamin D and B12 as discussed. S upplement sent - Attend follow-up appointment scheduled in February. Review of Systems - General: No fever no chills - Neurological: No headaches no dizziness - Ear nose throat: No sore throat no hearing difficulty no ear pain - Cardiovascular: No syncope, no chest pain, no palpitations - Gastrointestinal: No nausea vomiting or diarrhea - Endocrine: No polyuria polydipsia no heat intolerance - Genitourinary: No dysuria , no blood in urine Physical Exam General: No acute distress HEENT: Thinning hair with bald spots observed especially posteriorly Neck: Supple Respiratory system: Able to talk in full sentences, no audible wheeze Cardiovascular: S1-S2 regular in rate and rhythm Gastrointestinal: No pain Extremities: No new findings ALARM TECHNICIAN: Alert awake oriented x3 motor sensory intact Skin: Normal turgor PFSH Medical History Vaginal itching Pelvic pressure in female UTI (urinary tract infection) Morbid obesity with BMI of 40.0-44.9, adult Migraine with aura Surgical History History of cholecystectomy Family History Father Diabetes mellitus Mother High cholesterol HTN (hypertension) CVD (cardiovascular disease) Brother Diabetes mellitus Asthma Maternal Grandmother Diabetes mellitus Cancer Maternal Grandfather Diabetes mellitus Cancer Paternal Grandmother Unknown family medical history Paternal Grandfather No problems noted. Maternal Aunt Breast cancer Brother No problems noted. Brother No problems noted. Sister No problems noted. Daughter No problems noted. Daughter No problems noted. Daughter No problems noted. Other Mental health disorder Substance use disorder Social History Housing: Apartment Alcohol intake: never Patient Tobacco Use Status: Never used Tobacco e-Cigarette/Vaping Use: Never Used Substance Use Type: Marijuana service: No Current occupational status: unemployed Cognitive needs: No Hearing needs: No Vision needs: Yes Female Reproductive History Menstrual Age of Menarche: 11 Questionnaire Thrive Questionnaire Date Thrive assessed: 08/14/24 I am a: Patient What is your living situation today?: I have a steady place to live Within the past 12 months, did the food you bought not last and you didn't have the money to get more?: Never true Within the past 12 months, did you worry whether your food would run out before you got money to buy more?: Never true Do you have trouble paying for medicines?: No Do you have trouble getting transportation to medical appointments?: No Do you have trouble paying your heating and electricity bill?: No Do you have trouble taking care of your child, family member or friend?: No Do you have trouble with day-to-day activities such as bathing, preparing meals, shopping, managing finances, etc.?: No Are you currently unemployed and looking for a job?: No Are you interested in more education?: No Please select the resources that you would like help with: None Currently or been in a relationship where the following occur: No concerns reported THRIVE Score: 0 CHAU-7 AMB Questionnaire CHAU-7 Date CHAU - 7 assessed: 11/13/24 Source: Developed by Drs. Jeremias Young, Jeri Howe, Manny Naqvi and colleagues, with an educational pacheco from [employer]. Physical exam (Primary Care) Vital Signs: Last Vital Signs Pulse 81 12/18/24 13:16 BP 110/78 12/18/24 13:16 Pulse Ox 98 12/18/24 13:16 Oxygen Delivery Method Room Air 12/18/24 13:16 BMI result Body Mass Index 35.5 Tobacco/Smoking Status: Tobacco use Status Tobacco use date assessed 11/13/24 12/18/24 13:21 Patient Tobacco Use Status Never used Tobacco 12/18/24 13:21 e-Cigarette/Vaping Use Never Used 12/18/24 13:21 Thrive Assessment: Date of Thrive Assessment Date Thrive assessed 08/14/24 12/18/24 13:21 Currently or been in a relationship where the following occur: No concerns reported Coding Level of Care Code Est Pt Level 4 (57089) Diagnoses Alopecia L65.9 Vitamin D deficiency E55.9 B12 deficiency E53.8 Stress at home F43.9 Assessment & Plan Assessment & Plan (1) Alopecia: Code(s): L65.9 - Nonscarring hair loss, unspecified Category: Medical (2) Vitamin D deficiency: Code(s): E55.9 - Vitamin D deficiency, unspecified Category: Medical (3) B12 deficiency: Code(s): E53.8 - Deficiency of other specified B group vitamins Category: Medical (4) Stress at home: Code(s): F43.9 - Reaction to severe stress, unspecified Category: Social Hx Plan History - The patient is a 39-year-old female presenting with hair loss. - She reports significant hair thinning and the presence of bald spots. - The thinning of hair has been noticed over an unspecified period. - Bald spots became noticeable approximately three to four weeks ago. - Patient reports experiencing emotional stress; fever is absent. - No recent major illnesses in the past four months have been reported. Medical History: - Prediabetes Diagnostic Results: - Labs: - CBC: Normal; Hemoglobin: Normal - White blood cell count: Normal; Blood count: Normal - Electrolytes: Normal; Kidney function: Normal - Fasting glucose: 108 mg/dL (Prediabetes) - Hemoglobin A1c: 5.0% (Normal) - Liver enzymes: Normal - Cholesterol: Normal; LDL: 122 mg/dL - Vitamin D: Low - Vitamin B12: Normal - Thyroid function: Normal Problem List - Hair loss - Emotional stress - Prediabetes - Vitamin D deficiency - vitamin B12 deficiency Patient Instructions - Massage the prescribed lotion into your scalp and wash it out in the morning. Cuthbert smooth - Schedule an appointment with the factory maintenance manager for further evaluation. - Contact [facility] and book your appointment with them. - Use vitamin D and B12 as discussed. Supplement sent - Attend follow-up appointment scheduled in February. Orders: Referrals Dermatology Referral L65.9 - Nonscarring hair loss, unspecified Medications: New cholecalciferol (vitamin D3) 25 mcg PO DAILY 90 caps 1RF 90 days cyanocobalamin (vitamin B-12) 1,000 mcg PO DAILY 90 tabs 0RF 90 days fluocinolone 0.01% (Cuthbert-Smoothe/FS Body Oil) message in scalp, leave it over night and wash in am 1 appl topical .qod 118.28 mL 0RF 30 days
== END 2024-12-18 14:38 | disposition home or self-care (01) ==
LOC: HO.HMCC 13:12
PROVIDERS: PCP Internal Medicine; Visit Provider Internal Medicine
DX: L65.9 Nonscarring hair loss, unspecified (principal); E55.9 Vitamin D deficiency, unspecified; E53.8 Deficiency of other specified B group vitamins; F43.9 Reaction to severe stress, unspecified

== ENCOUNTER → 2024-12-18 13:12 | Outpatient (BNVA) | payer OTHER, SELFPAY | PROVIDERS: PCP Internal Medicine; Visit Provider Internal Medicine | DX: E66.01 Morbid (severe) obesity due to excess calories (principal); L65.9 Nonscarring hair loss, unspecified; E55.9 Vitamin D deficiency, unspecified; E53.8 Deficiency of other specified B group vitamins; F43.9 Reaction to severe stress, unspecified; Z68.35 Body mass index [BMI] 35.0-35.9, adult | CPT/HCPCS: 99212 ==

== ENCOUNTER 2024-12-27 15:14 | Outpatient (REF) | payer OTHER, SELFPAY ==
--- NOTE | ~2024-12-27 | US_ITS ---
EXAMINATION: US PELVIS TRANSABDOMINAL AND TRANSVAGINAL HISTORY: R10.2 - Pelvic and perineal pain COMPARISON: Comparison is made with the prior examination dated 05/26/2020. Correlation is also made with a CT of the pelvis without contrast dated 06/16/2024. TECHNIQUE: Transabdominal and endovaginal real-time 2D guillaume-scale ultrasound was performed. FINDINGS: Uterus: The uterus is normal in size, measuring 9.6 x 5.1 x 6.4 cm. Myometrium has a normal echotexture. There is a fundal fibroid measuring 1.3 x 0.8 x 1.3 cm. Endometrium: The endometrial stripe measures 10 mm in thickness. There are nabothian cysts in the cervix. Right ovary: The right ovary measures 2.5 x 1.2 x 1.8 cm. The right ovary is normal in size and echotexture. Left ovary: The left ovary measures 2.5 x 2.4 x 2.1 cm. The left ovary is normal in size and echotexture. Pelvic fluid: none. US/US pelvic and transvaginal IMPRESSION: 1.3 cm fundal fibroid. Otherwise unremarkable pelvic ultrasound. Electronically signed by: Jeremias Rocha MD 12/27/2024 03:43 PM EDT
== END 2024-12-27 15:15 | disposition home or self-care (01) ==
LOC: HO.US 15:14
PROVIDERS: PCP Internal Medicine; Visit Provider Advanced Practice Midwife
DX: R10.2 Pelvic and perineal pain (principal)
CPT/HCPCS: 76830; 76856

== ENCOUNTER → 2024-12-27 15:15 | Outpatient (BNV) | payer OTHER, SELFPAY | PROVIDERS: PCP Internal Medicine; Visit Provider Radiology Diagnostic Radiology | DX: D25.1 Intramural leiomyoma of uterus (principal) | CPT/HCPCS: 76830; 76856 ==

== ENCOUNTER 2025-01-15 12:40 | Outpatient (REF) | payer OTHER, SELFPAY ==
[2025-01-15 16:56] LABS: Bacterial Vaginosis PCR POSITIVE (Negative); Candida Group PCR NOT DETECTED (Not Detect); Candida glab krusei PCR NOT DETECTED (Not Detect); Trichomonas vaginalis PCR NOT DETECTED (Not Detect)
[2025-01-15 17:28] LABS: CT PCR NOT DETECTED (Not Detect.); NG PCR NOT DETECTED (Not Detect.)
== END 2025-01-15 12:41 | disposition home or self-care (01) ==
LOC: HO.LNP 12:40
PROVIDERS: PCP Internal Medicine; Visit Provider Advanced Practice Midwife
DX: R10.2 Pelvic and perineal pain (principal); D26.1 Other benign neoplasm of corpus uteri; N89.8 Other specified noninflammatory disorders of vagina; Z11.8 Encounter for screening for other infectious and parasitic diseases; Z11.3 Encounter for screening for infections with a predominantly sexual mode of transmission
CPT/HCPCS: 81515; 87491; 87591; 99212

== ENCOUNTER 2025-01-15 12:40 | Outpatient (AMB) | payer OTHER, SELFPAY ==
--- NOTE | 2025-01-15 12:43 | A.OFFVIS_ITS ---
Intake Visit Reasons: Ultra sound follow up Intake Note: Patient still experiencing pelvic pain, no worse no better. 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 Layer'S Helper Present (MARIE Ryan) Accompanied by: Self / Same As Patient Allergies avocado Allergy (Severe, Verified 01/15/25 13:26) Swelling coconut Allergy (Severe, Verified 01/15/25 13:26) swelling Milk Containing Products (Dairy) Allergy (Severe, Verified 01/15/25 13:26) Swelling potato Allergy (Severe, Verified 01/15/25 13:26) Swelling cucumbers Allergy (Severe, Uncoded 01/15/25 13:26) Swelling apples, strawberries, kiwi, ma Allergy (Unknown, Uncoded 11/22/24 10:30) shortness of breath Cats, Dust mites Allergy (Unknown, Uncoded 11/22/24 10:30) per allergy testing Environmental Allergy (Unknown, Uncoded 11/22/24 10:30) per allergy testing HPI Comments Details: Patient is here today for a follow up pelvic ultrasound. History of pelvic pain. Reports many food allergies. 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 Admits to being prone to bacterial vaginosis has discharge, occasional odor. Has recent tried an [id number] UTI treatment recently. Symptoms are worsened with the intimacy. [facility] Medical History (Updated 01/15/25 @ 13:24 by Phoebe Guzman CNM) Encounter for general adult medical examination with abnormal findings Fibroid Vaginal itching Pelvic pressure in female UTI (urinary tract infection) Morbid obesity with BMI of 40.0-44.9, adult Migraine with aura Surgical History History of cholecystectomy Family History Father Diabetes mellitus Mother High cholesterol HTN (hypertension) CVD (cardiovascular disease) Brother Diabetes mellitus Asthma Maternal Grandmother Diabetes mellitus Cancer Maternal Grandfather Diabetes mellitus Cancer Paternal Grandmother Unknown family medical history Paternal Grandfather No problems noted. Maternal Aunt Breast cancer Brother No problems noted. Brother No problems noted. Sister No problems noted. Daughter No problems noted. Daughter No problems noted. Daughter No problems noted. Other Mental health disorder Substance use disorder Social History Housing: Apartment Alcohol intake: never Patient Tobacco Use Status: Never used Tobacco e-Cigarette/Vaping Use: Never Used Substance Use Type: Marijuana service: No Current occupational status: unemployed Cognitive needs: No Hearing needs: No Vision needs: Yes Female Reproductive History Menstrual Age of Menarche: 11 Review of Systems Const All systems reviewed & are unremarkable except as noted in HPI and below Physical Exam Const General: cooperative, healthy appearing and no acute distress Orientation/consciousness: patient oriented x3 GI Inspection: Yes normal to inspection Palpation (GI): Soft to palpation and Other GI palpation findings present (Nontender) Rectal Exam - Female: visual inspection normal General: Yes bladder normal to palpation External Female Exam: normal appearance of the urethra Speculum Exam - Vagina: normal appearance of the vagina, normal palpation and normal vaginal discharge Speculum Exam - Cervix: normal appearance of the cervix and normal palpation Bimanual exam- vagina & uterus: normal bimanual exam, normal palpation, uterine size normal, bladder normal to palpation, normal palpation, uterine shape normal and non-tender Bimanual Exam- Adnexa, other: normal adnexae Neuro General: patient oriented x3 Results Reviewed Results Reviewed: [address] [address] Ultrasound Report Signed Patient: Ruddy Beach MR#: [id number] : 1985 Acct:[id number] Age/Sex: 39 / F ADM Date: 12/27/24 Loc: HO.US Attending Dr: Phoebe Guzman CNM Ordering Physician: Phoebe Guzman CNM Date of Service: 12/27/24 Procedure(s): US pelvic and transvaginal Accession Number(s): [id number] cc: Jadyn Tinoco MD; Phoebe Guzman CNM~ EXAMINATION: US PELVIS TRANSABDOMINAL AND TRANSVAGINAL HISTORY: R10.2 - Pelvic and perineal pain COMPARISON: Comparison is made with the prior examination dated 05/26/2020. Correlation is also made with a CT of the pelvis without contrast dated 06/16/2024. TECHNIQUE: Transabdominal and endovaginal real-time 2D guillaume-scale ultrasound was performed. FINDINGS: Uterus: The uterus is normal in size, measuring 9.6 x 5.1 x 6.4 cm. Myometrium has a normal echotexture. There is a fundal fibroid measuring 1.3 x 0.8 x 1.3 cm. Endometrium: The endometrial stripe measures 10 mm in thickness. There are nabothian cysts in the cervix. Right ovary: The right ovary measures 2.5 x 1.2 x 1.8 cm. The right ovary is normal in size and echotexture. Left ovary: The left ovary measures 2.5 x 2.4 x 2.1 cm. The left ovary is normal in size and echotexture. Pelvic fluid: none. US/US pelvic and transvaginal IMPRESSION: 1.3 cm fundal fibroid. Otherwise unremarkable pelvic ultrasound. 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 Consider boric acid protocol has used in the past. Consider probiotics food need to research for allergies and speak to her other providers as long as it is safe for her to try we will consider. Keep yearly scheduled annual exam in appointment. The patient expressed understanding and agreement with the plan of care. All of her questions and concerns were addressed to the best of my ability. (2) Fibroid: Code(s): D21.9 - Benign neoplasm of connective and other soft tissue, unspecified Category: Medical Plan: Discussed: Ultrasound findings- IMPRESSION: 1.3 cm fundal fibroid. Otherwise unremarkable pelvic ultrasound. Counseled re: Leiomyoma: common pelvic neoplasm. Differential diagnosis-may include but not limited to- leiomyosarcoma which is a rare uterine sarcoma 3- 7/100,000, difficult to distinguish from fibroids on ultrasound from uterine sarcoma's. Unlikely any single test will have a highly positive predictive value. Hysterectomy is not recommended for sole purpose of excluding malignant neoplasm. Consult for surgical exploration, medical treatment, other treatments, verses expectant management, pros and cons, risks and benefits. Expectant management follow up in 6 months, then yearly for stability. Patient prefers to proceed with expectant management. Referral to MD if indicated for level of care if indicated Report any AUB, pelvic pressure, bloating, or pain. (3) Pelvic pain: Code(s): R10.2 - Pelvic and perineal pain Plan Advised to call if any increase in pain or changes. BV and GC chlamydia panel obtained await results for final plan of care. The patient expressed understanding and agreement with the plan of care. All of her questions and concerns were addressed to the best of my ability. This note is constructed using voice recognition software. While every effort has been made to ensure accuracy, trolley car operator errors may have been included. Orders: Orders US pelvic and transvaginal 06/24/25 D21.9 - Benign neoplasm of connective and other soft tissue, unspecified CT NG by PCR Vag/Cerv Today R10.2 - Pelvic and perineal pain Bacterial Vaginosis Panel Today R10.2 - Pelvic and perineal pain Coding Level of Care Code Est Pt Level 3 (01725) Diagnoses Vaginal discharge N89.8 Fibroid D21.9 Pelvic pain R10.2
== END 2025-01-16 07:17 | disposition home or self-care (01) ==
LOC: HO.HWS 12:41
PROVIDERS: PCP Internal Medicine; Visit Provider Advanced Practice Midwife
DX: N89.8 Other specified noninflammatory disorders of vagina (principal); D21.9 Benign neoplasm of connective and other soft tissue, unspecified; R10.2 Pelvic and perineal pain
CPT/HCPCS: 99213

== ENCOUNTER 2025-02-26 09:18 | Outpatient (AMB) | payer OTHER, SELFPAY ==
[2025-02-26 09:20] VITALS: BP 124/80; PULSE 86; RESP 18; TEMP 36.7; O2SAT 97; BMI 35.2
--- NOTE | 2025-02-26 09:20 | A.OFFPC_ITS ---
Vital Signs 02/26/25 09:20 Height 5 ft 3 in Weight 199 lb BMI 35.2 BP 124/80 Blood Pressure Location Lt brachial Position Sitting Respiration 18 Pulse 86 Pulse Source Pulse Oximeter Temp 98.1 F Temp Source Oral Pulse Oximetry (%) 97 Oxygen Delivery Method Room Air Intake Visit Reasons: 3 months f/up Allergies avocado Allergy (Severe, Verified 02/26/25 09:25) Swelling coconut Allergy (Severe, Verified 02/26/25 09:25) swelling potato Allergy (Severe, Verified 02/26/25 09:25) Swelling Milk Containing Products (Dairy) Adverse Reaction (Mild, Verified 02/26/25 09:25) Stomach Upset cucumbers Allergy (Severe, Uncoded 02/26/25 09:25) Swelling apples, strawberries, kiwi, ma Allergy (Unknown, Uncoded 02/26/25 09:25) shortness of breath Cats, Dust mites Allergy (Unknown, Uncoded 02/26/25 09:25) per allergy testing Environmental Allergy (Unknown, Uncoded 02/26/25 09:25) per allergy testing Medication List - Last Reconciled 02/26/25 by Jadyn Tinoco MD acetaminophen (Tylenol Extra Strength) 1,000 mg (2 x 500 mg) PO QID PRN albuterol sulfate 90 mcg/actuation (Ventolin HFA) 1 inh inhalation QID PRN 30 days baclofen 10 mg PO BEDTIME cholecalciferol (vitamin D3) 25 mcg PO DAILY 90 days clobetasol 0.05% 1 appl topical BID 2 weeks cyanocobalamin (vitamin B-12) 1,000 mcg PO DAILY 90 days duloxetine 30 mg PO DAILY 90 days epinephrine (EpiPen) 0.3 mg (0.3 mL) IM Q4H PRN fluocinolone 0.01% ([place]-Smoothe/FS Body Oil) 1 appl topical .qod 30 days gabapentin 300 mg PO BEDTIME metronidazole 500 mg PO BID 7 days Tobacco use date assessed: 02/26/25 Dental Screening Dental Screen Date: 11/13/24 HPI 3 months f/up HPI Details History The patient is a 39-year-old female presenting with depression, anxiety, panic disorder, vitamin D deficiency, vitamin B12 deficiency, and obesity. Depression: - The patient has a longstanding history of depression, exacerbated by her current marital issues. - She reports taking duloxetine 30 mg an d engaging in regular therapy sessions, the latest being the previous day. - She attributes depressive symptoms to life stressors, particularly surrounding her impending divorce and associated familial and financial stress. Anxiety and Panic Disorder: - The anxiety and panic disorder are luciana cribed as severe and long-standing. - She experiences significant social anx iety, which greatly impedes her ability to work or be in public spaces. - Notable exacerbation is attributed to familial and financial stressors. Vitamin D Deficiency: - A history of vitamin D deficiency is n oted, with current low levels reported at 27. - The patient has been advised to take a vitamin D supplement. Vitamin B12 Deficiency: - She has a documented history of vitami n B12 deficiency. - She is currently on a vitamin B12 supp lement. Obesity: - The patient has a body mass index (BMI ) of 35.3, classified as obese. Marital Issues: - The patient details stress associated with her marriage, specifically ongoing separation leading to divorce after 17 years of partnership. - Concerns about financial security and custody of four children have contributed to her mental health stressors. Medical History: - Depression - Anxiety - Panic disorder - Vitamin D deficiency - Vitamin B12 deficiency - Obesity - Multiple food allergies - Environmental allergies - Right lumbar radiculitis Medications: - Baclofen 10 mg for muscle spasms assoc iated with right lumbar radiculitis - Vitamin D supplement for vitamin D def iciency - Vitamin B12 supplement for vitamin B12 deficiency - Duloxetine 30 mg for depression and an xiety - Gabapentin 300 mg for pain management and potential neuropathic contribution Social History: - Mother of four children, two adults, a nd two minors - Severe social anxiety impedes ability to work - Engages in therapy and takes prescribe d medications for mental health management - No current employment; financial stres s due to inability to work - Reports shedding hair attributed to st ress Problem List - Depression - Anxiety - Panic disorder - Vitamin D deficiency - Vitamin B12 deficiency - Obesity - Marital stress and separation - Right lumbar radiculitis - Multiple food allergies - Environmental allergies Diagnostic results - Labs: Fasting blood sugar of 108 indic ating prediabetes; stable liver enzymes; LDL 122 mg/dL; vitamin D level at 27 ng/mL - CBC: Normal values, hemoglobin normal. - Electrolytes and kidney functions were reported intact. Patient Instructions - Continue with current medications: christine lofen, vitamins D and B12 supplements, duloxetine, and gabapentin - Consider financial assistance options for temporary disability due to severe anxiety - Take Seroquel as prescribed to aid sle ep - Return in three weeks for follow-up - Monitor for any new or worsening sympt oms Review of Systems General: No fever no chills neurological: No headaches no dizziness ear nose throat: No sore throat no hearing difficulty no ear pain cardiovascular: No syncope, no chest pain, no palpitations gastrointestinal: No nausea vomiting or diarrhea endocrine: No polyuria polydipsia no heat intolerance Physical Exam general: No acute distress HEENT: No acute findings neck: Supple respiratory system: Able to talk in full sentences, no audible wheeze no stridor cardiovascular: S1-S2 RRR gastrointestinal: No pain extremities: No new findings [employer]: Alert awake oriented x3 motor intact skin: normal turgor Psych : constantly tearful during visit [facility] Medical History Encounter for general adult medical examination with abnormal findings Fibroid Vaginal itching Pelvic pressure in female UTI (urinary tract infection) Morbid obesity with BMI of 40.0-44.9, adult Migraine with aura Surgical History History of cholecystectomy Family History Father Diabetes mellitus Mother High cholesterol HTN (hypertension) CVD (cardiovascular disease) Brother Diabetes mellitus Asthma Maternal Grandmother Diabetes mellitus Cancer Maternal Grandfather Diabetes mellitus Cancer Paternal Grandmother Unknown family medical history Paternal Grandfather No problems noted. Maternal Aunt Breast cancer Brother No problems noted. Brother No problems noted. Sister No problems noted. Daughter No problems noted. Daughter No problems noted. Daughter No problems noted. Other Mental health disorder Substance use disorder Social History Housing: Apartment Alcohol intake: never Patient Tobacco Use Status: Never used Tobacco e-Cigarette/Vaping Use: Never Used Substance Use Type: Marijuana service: No Current occupational status: unemployed Cognitive needs: No Hearing needs: No Vision needs: Yes Female Reproductive History Menstrual Age of Menarche: 11 Questionnaire PHQ-9 Over the last 2 weeks, how often have you been bothered by any of the following problems? 1. Little interest or pleasure in doing things: several days 2. Feeling down, depressed, or hopeless: several days 3. Trouble falling or staying asleep, or sleeping too much: nearly every day 4. Feeling tired or having little energy: more than half the days 5. Poor appetite or overeating: more than half the days 6. Feeling bad about yourself - or that you are a failure or have let yourself or your family down: not at all 7. Trouble concentrating on things, such as reading the newspaper or watching television: several days 8. Moving or speaking so slowly that other people could have noticed. Or the opposite - being so fidgety or restless that you have been moving around a lot more than usual: not at all 9. Thoughts that you would be better off or of hurting yourself in some way: not at all Total score: 10 Depression Screening Interpretation: Positive Depression Screening Follow-up: Existing condition and In treatment Depression Screening Done: Yes 48875 - PHQ-9 Billing: Yes Source: Developed by Drs. Jeremias Young, Jeri Howe, Manny Naqvi and colleagues, with an educational pacheco from [email or web address]. Thrive Questionnaire Date Thrive assessed: 08/14/24 I am a: Patient What is your living situation today?: I have a steady place to live Within the past 12 months, did the food you bought not last and you didn't have the money to get more?: Never true Within the past 12 months, did you worry whether your food would run out before you got money to buy more?: Never true Do you have trouble paying for medicines?: No Do you have trouble getting transportation to medical appointments?: No Do you have trouble paying your heating and electricity bill?: No Do you have trouble taking care of your child, family member or friend?: No Do you have trouble with day-to-day activities such as bathing, preparing meals, shopping, managing finances, etc.?: No Are you currently unemployed and looking for a job?: No Are you interested in more education?: No Please select the resources that you would like help with: None Currently or been in a relationship where the following occur: No concerns reported THRIVE Score: 0 CHAU-7 AMB Questionnaire CHAU-7 Date CHAU - 7 assessed: 11/13/24 Feeling nervous, anxious, or on edge: 0 = Not at all Not being able to stop or control worryin = Not at all Worrying too much about different things: 0 = Not at all Trouble relaxin = Not at all Being so restless that it is hard to sit still: 0 = Not at all Becoming easily annoyed or irritable: 0 = Not at all Feeling afraid as if something awful might happen: 0 = Not at all Total CHAU-7 score (0-4 normal; 5-9 mild; 10-14 moderate; 15-21 severe): 0 Source: Developed by Drs. Jeremias Young, Jeri Howe, Manny Naqvi and colleagues, with an educational pacheco from [email or web address]. CHAU-7 Assessment Billing CHAU-7 Assessment Tool: CHAU-7 Assessment 57449 Physical exam (Primary Care) Vital Signs: Last Vital Signs Temp 98.1 F 02/26/25 09:20 Pulse 86 02/26/25 09:20 Resp 18 02/26/25 09:20 BP 124/80 02/26/25 09:20 Pulse Ox 97 02/26/25 09:20 Oxygen Delivery Method Room Air 02/26/25 09:20 BMI result Body Mass Index 35.2 Tobacco/Smoking Status: Tobacco use Status Tobacco use date assessed 02/26/25 02/26/25 09:28 Patient Tobacco Use Status Never used Tobacco 02/26/25 09:20 e-Cigarette/Vaping Use Never Used 02/26/25 09:20 PHQ-9: PHQ-9 Score PHQ-9: Total score 10 02/26/25 09:45 Depression Screening Interpretation: Positive Depression Screening Follow-up: Existing condition and In treatment Thrive Assessment: Date of Thrive Assessment Date Thrive assessed 08/14/24 02/26/25 09:20 Currently or been in a relationship where the following occur: No concerns reported Coding Level of Care Code Est Pt Level 5 (87311) Diagnoses Stress at home F43.9 Anxiety, generalized F41.1 Panic disorder F41.0 Right lumbar radiculitis M54.16 Recurrent major depressive disorder, in partial remission F33.41 Active/Remission status: in partial remission Vitamin D deficiency E55.9 B12 deficiency E53.8 Multiple food allergies Z91.018 Class 2 obesity due to excess calories without serious comorbidity with body mass index (BMI) of 38.0 to 38.9 in adult E66.09; Z68.38 Obesity classification: adult class 2 (BMI 35 - 39.9) Serious obesity comorbidity presence: without serious comorbidity Body mass index: BMI 38.0-38.9 Prediabetes R73.03 Additional Codes PHQ-9 - 25542 - PHQ-9 Billing: Yes ([id number]) CHAU-7 Assessment Billing - CHAU-7 Assessment Tool: CHAU-7 Assessment 43116 ([id number]) Time Spent (min) 40 Comment most of time face to face discussing stress at home / coordination of care, chart /lab Assessment & Plan Assessment & Plan (1) Stress at home: Code(s): F43.9 - Reaction to severe stress, unspecified Category: Social Hx (2) Anxiety, generalized: Code(s): F41.1 - Generalized anxiety disorder Category: Medical (3) Panic disorder: Code(s): F41.0 - Panic disorder [episodic paroxysmal anxiety] Category: Medical (4) Right lumbar radiculitis: Code(s): M54.16 - Radiculopathy, lumbar region Category: Medical (5) Major depression, recurrent: Code(s): F33.9 - Major depressive disorder, recurrent, unspecified Category: Medical Qualifiers: Active/Remission status: in partial remission Qualified Code(s): F33.41 - Major depressive disorder, recurrent, in partial remission (6) Vitamin D deficiency: Code(s): E55.9 - Vitamin D deficiency, unspecified Category: Medical (7) B12 deficiency: Code(s): E53.8 - Deficiency of other specified B group vitamins Category: Medical (8) Multiple food allergies: Code(s): Z91.018 - Allergy to other foods Category: Medical (9) Obesity due to excess calories: Code(s): E66.09 - Other obesity due to excess calories Category: Medical Qualifiers: Obesity classification: adult class 2 (BMI 35 - 39.9) Serious obesity comorbidity presence: without serious comorbidity Body mass index: BMI 38.0- 38.9 Qualified Code(s): E66.09 - Other obesity due to excess calories; Z68.38 - Body mass index [BMI] 38.0-38.9, adult (10) Prediabetes: Code(s): R73.03 - Prediabetes Category: Medical Plan History The patient is a 39-year-old female presenting with depression, anxiety, panic disorder, vitamin D deficiency, vitamin B12 deficiency, and obesity. Depression: - The patient has a longstanding history of depression, exacerbated by her current marital issues. - She reports taking duloxetine 30 mg and engaging in regular therapy sessions, the latest being the previous day. - She attributes depressive symptoms to life stressors, particularly surrounding her impending divorce and associated familial and financial stress. Anxiety and Panic Disorder: - The anxiety and panic disorder are described as severe and long-standing. - She experiences significant social anxiety, which greatly impedes her ability to work or be in public spaces. - Notable exacerbation is attributed to familial and financial stressors. Vitamin D Deficiency: - A history of vitamin D deficiency is noted, with current low levels reported at 27. - The patient has been advised to take a vitamin D supplement. Vitamin B12 Deficiency: - She has a documented history of vitamin B12 deficiency. - She is currently on a vitamin B12 supplement. Obesity: - The patient has a body mass index (BMI) of 35.3, classified as obese. Marital Issues: - The patient details stress associated with her marriage, specifically ongoing separation leading to divorce after 17 years of partnership. - Concerns about financial security and custody of four children have contributed to her mental health stressors. Medical History: - Depression - Anxiety - Panic disorder - Vitamin D deficiency - Vitamin B12 deficiency - Obesity - Multiple food allergies - Environmental allergies - Right lumbar radiculitis Medications: - Baclofen 10 mg for muscle spasms associated with right lumbar radiculitis - Vitamin D supplement for vitamin D deficiency - Vitamin B12 supplement for vitamin B12 deficiency - Duloxetine 30 mg for depression and anxiety - Gabapentin 300 mg for pain management and potential neuropathic contribution Social History: - Mother of four children, two adults, and two minors - Severe social anxiety impedes ability to work - Engages in therapy and takes prescribed medications for mental health management - No current employment; financial stress due to inability to work - Reports shedding hair attributed to stress Problem List - Depression - Anxiety - Panic disorder - Vitamin D deficiency - Vitamin B12 deficiency - Obesity - Marital stress and separation - Right lumbar radiculitis - Multiple food allergies - Environmental allergies Diagnostic results - Labs: Fasting blood sugar of 108 indicating prediabetes; stable liver enzymes; LDL 122 mg/dL; vitamin D level at 27 ng/mL - CBC: Normal values, hemoglobin normal. - Electrolytes and kidney functions were reported intact. Patient Instructions - Continue with current medications: baclofen, vitamins D and B12 supplements, duloxetine, and gabapentin - Consider financial assistance options for temporary disability due to severe anxiety - Take Seroquel as prescribed to aid sleep - Return in three weeks for follow-up - Monitor for any new or worsening symptoms Medications: New quetiapine (Seroquel) 25 mg PO BEDTIME 30 tabs 0RF Refilled gabapentin 300 mg PO BEDTIME 90 caps 0RF
== END 2025-02-26 09:47 | disposition home or self-care (01) ==
LOC: HO.HMCC 09:19
PROVIDERS: PCP Internal Medicine; Visit Provider Internal Medicine
DX: F43.9 Reaction to severe stress, unspecified (principal); F41.1 Generalized anxiety disorder; F41.0 Panic disorder [episodic paroxysmal anxiety]; M54.16 Radiculopathy, lumbar region; F33.41 Major depressive disorder, recurrent, in partial remission; E55.9 Vitamin D deficiency, unspecified; E53.8 Deficiency of other specified B group vitamins; Z91.018 Allergy to other foods; E66.09 Other obesity due to excess calories; Z68.38 Body mass index [BMI] 38.0-38.9, adult; R73.03 Prediabetes

== ENCOUNTER → 2025-02-26 09:18 | Outpatient (BNVA) | payer OTHER, SELFPAY | PROVIDERS: PCP Internal Medicine; Visit Provider Internal Medicine | DX: F41.0 Panic disorder [episodic paroxysmal anxiety] (principal); F32.A Depression, unspecified; F41.9 Anxiety disorder, unspecified; E55.9 Vitamin D deficiency, unspecified; E53.8 Deficiency of other specified B group vitamins; E66.9 Obesity, unspecified; Z68.35 Body mass index [BMI] 35.0-35.9, adult | CPT/HCPCS: 96127 ==

== ENCOUNTER 2025-03-27 09:28 | Outpatient (AMB) | payer OTHER, SELFPAY ==
[2025-03-27 09:30] VITALS: BP 122/80; PULSE 96; O2SAT 99; BMI 35.4
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
== END 2025-03-27 09:45 | disposition home or self-care (01) ==
LOC: HO.HMCC 09:29
PROVIDERS: PCP Internal Medicine; Visit Provider Internal Medicine
DX: F33.41 Major depressive disorder, recurrent, in partial remission (principal); F41.1 Generalized anxiety disorder; F41.0 Panic disorder [episodic paroxysmal anxiety]

== ENCOUNTER → 2025-03-27 09:28 | Outpatient (BNVA) | payer OTHER, SELFPAY | PROVIDERS: PCP Internal Medicine; Visit Provider Internal Medicine | DX: F41.0 Panic disorder [episodic paroxysmal anxiety] (principal); F33.41 Major depressive disorder, recurrent, in partial remission; F41.1 Generalized anxiety disorder; M54.9 Dorsalgia, unspecified; L65.9 Nonscarring hair loss, unspecified | CPT/HCPCS: 99212 ==

== ENCOUNTER 2025-04-01 08:46 | Outpatient (AMB) | payer OTHER, SELFPAY ==
--- NOTE | 2025-04-01 08:59 | AM.OFFWIN_ITS ---
Intake Vital Signs 04/01/25 09:00 Height 5 ft 3 in Weight 200 lb BMI 35.4 BP 126/80 Blood Pressure Location Lt brachial Pulse 78 Pulse Source Pulse Oximeter Temp 97.8 F Temp Source Oral Pulse Oximetry (%) 100 Intake Visit Reasons: EP UTI [phone] Patient Tobacco Use Status: Never used Tobacco Allergies avocado Allergy (Severe, Verified 04/01/25 08:59) Swelling coconut Allergy (Severe, Verified 04/01/25 08:59) swelling potato Allergy (Severe, Verified 04/01/25 08:59) Swelling Milk Containing Products (Dairy) Adverse Reaction (Mild, Verified 04/01/25 08:59) Stomach Upset cucumbers Allergy (Severe, Uncoded 02/26/25 09:25) Swelling apples, strawberries, kiwi, ma Allergy (Unknown, Uncoded 02/26/25 09:25) shortness of breath Cats, Dust mites Allergy (Unknown, Uncoded 02/26/25 09:25) per allergy testing Environmental Allergy (Unknown, Uncoded 02/26/25 09:25) per allergy testing Do you need a note to return to daycare/school/sports/work: Yes HPI HPI Comments History of Present Illness Details History - The patient is a 39-year-old female pr esenting with symptoms suggestive of a urinary tract infection. - Symptoms began on Tuesday, with back pain and a sensation of the infection spreading to the kidneys. - Self-treatment with [id number] m edication provided partial relief. - Denies fever, discharge, itching, or b urning, but reports pressure and increased frequency of urination. - No known allergies; last menstrual per iod was on the 18 of February. - She denies hematuria, CP, or SOB. Physical Exam General: Cooperative, healthy appearing, comfortable, no acute distress and well developed Cardiac: Normal S1 and S2. RRR, no M/R/G noted. Respiratory: Normal respiratory effort and able to speak in complete sentences. Clear to auscultation bilaterally. No w/r/r noted. Skin: No rashes or lesions noted. GI: Normal inspection. Normal BS noted. Soft, non-tender, non-distended. No TTP of all 4 quadrants. No guarding or rebound tenderness noted. Back: Positive CVA tenderness bilaterally Patient was informed and verbally consented to the use of an ambient scribe for clinic note documentation during this visit. [facility] Medical History Encounter for general adult medical examination with abnormal findings Fibroid Vaginal itching Pelvic pressure in female UTI (urinary tract infection) Morbid obesity with BMI of 40.0-44.9, adult Migraine with aura Surgical History History of cholecystectomy Family History Father Diabetes mellitus Mother High cholesterol HTN (hypertension) CVD (cardiovascular disease) Brother Diabetes mellitus Asthma Maternal Grandmother Diabetes mellitus Cancer Maternal Grandfather Diabetes mellitus Cancer Paternal Grandmother Unknown family medical history Paternal Grandfather No problems noted. Maternal Aunt Breast cancer Brother No problems noted. Brother No problems noted. Sister No problems noted. Daughter No problems noted. Daughter No problems noted. Daughter No problems noted. Other Mental health disorder Substance use disorder Social History Housing: Apartment Alcohol intake: never Patient Tobacco Use Status: Never used Tobacco e-Cigarette/Vaping Use: Never Used Substance Use Type: Marijuana service: No Current occupational status: unemployed Cognitive needs: No Hearing needs: No Vision needs: Yes Female Reproductive History Menstrual Age of Menarche: 11 Review of Systems Const All systems reviewed & are unremarkable except as noted in HPI and below Physical Exam Vital Signs: Last Vital Signs Temp 97.8 F 04/01/25 09:00 Pulse 78 04/01/25 09:00 BP 126/80 04/01/25 09:00 Pulse Ox 100 04/01/25 09:00 BMI result Body Mass Index 35.4 Results AMB Urinalysis, Automated UA Leukoctes 15 Judit/uL Last Edit by Mady Jeronimo CMA on 04/01/25 09:14 UA Nitrite Negative Last Edit by Mady Jeronimo CMA on 04/01/25 09:14 UA Urobilinogen 0.2 mg/dL Last Edit by Mady Jeronimo CMA on 04/01/25 09:14 UA Protein 15 mg/dL Last Edit by Mady Jeronimo CMA on 04/01/25 09:14 UA pH 6.0 Last Edit by Mady Jeronimo CMA on 04/01/25 09:14 UA Blood 0 Jon/uL Last Edit by Mady Jeronimo CMA on 04/01/25 09:14 UA Specific Husser 1.025 Last Edit by Mady Jeronimo CMA on 04/01/25 09:14 UA Ketone Negative Last Edit by Mady Jeronimo CMA on 04/01/25 09:14 UA Bilirubin 0 mg/dL Last Edit by Mady Jeronimo CMA on 04/01/25 09:14 UA Glucose 0 mg/dL Last Edit by Mady Jeronimo CMA on 04/01/25 09:14 Results Reviewed Results Reviewed: Laboratory Last Values Urine pH (Auto) 6.0 04/01/25 09:12 Specific Husser (Auto) 1.025 04/01/25 09:12 Urine Protein (Auto) 15 mg/dL 04/01/25 09:12 Glucose (UA)(Auto) 0 mg/dL 04/01/25 09:12 Urine Ketones (Auto) Negative 04/01/25 09:12 Urine Blood (Auto) 0 Jon/uL 04/01/25 09:12 Urine Nitrite (Auto) Negative 04/01/25 09:12 Urine Bilirubin (Auto) 0 mg/dL 04/01/25 09:12 Urine Urobilinogen (Auto) 0.2 mg/dL 04/01/25 09:12 Leukocyte Esterase (Auto) 15 Judit/uL 04/01/25 09:12 Assessment & Plan Assessment & Plan (1) Dysuria: Code(s): R30.0 - Dysuria Plan Most likely UTI UA in the office +leuko, protein plan - will order urine culture - tylenol or motrin as needed - start antibiotics BID - pyridium TID as needed for pain - will call with the results of the UC and change medication as necessary - follow up with PCP Orders: Orders AMB Urinalysis Automated Today Ani Croft, [employer] Z13.9 - Encounter for screening, unspecified Urine Culture Today Libertad Rice PA-C N39.0 - Urinary tract infection, site not specified Medications: New phenazopyridine 100 mg PO tid PRN 6 tabs 0RF Pain Libertad Miles, PA-C cefuroxime axetil 500 mg PO Q12H 10 tabs 0RF AIDEN Auguste-C Coding Level of Care Code Est Pt Level 3 (74003) Diagnoses Dysuria R30.0
[2025-04-01 09:00] VITALS: BP 126/80; PULSE 78; TEMP 36.6; O2SAT 100; BMI 35.4
== END 2025-04-01 09:46 | disposition home or self-care (01) ==
PROVIDERS: PCP Internal Medicine; Visit Provider Physician Assistant Medical
DX: R30.0 Dysuria (principal); Z13.9 Encounter for screening, unspecified

== ENCOUNTER 2025-04-01 08:46 | Outpatient (REF) | payer OTHER, SELFPAY | END 2025-04-01 08:47 | disposition home or self-care (01) | LOC: HO.LAB 08:46 | PROVIDERS: PCP Internal Medicine | DX: R30.0 Dysuria (principal); Z13.89 Encounter for screening for other disorder | CPT/HCPCS: 81003; 87086; 99212 ==

== ENCOUNTER 2025-04-24 09:56 | Outpatient (AMB) | payer OTHER, SELFPAY ==
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
[2025-04-24 10:03] VITALS: BP 126/80; PULSE 110; O2SAT 96; BMI 35.4
== END 2025-04-24 10:26 | disposition home or self-care (01) ==
LOC: HO.HMCC 09:57
PROVIDERS: PCP Internal Medicine; Visit Provider Internal Medicine
DX: M67.432 Ganglion, left wrist (principal); F33.41 Major depressive disorder, recurrent, in partial remission; F41.1 Generalized anxiety disorder; F41.0 Panic disorder [episodic paroxysmal anxiety]; F43.9 Reaction to severe stress, unspecified; M54.16 Radiculopathy, lumbar region

== ENCOUNTER → 2025-04-24 09:56 | Outpatient (BNVA) | payer OTHER, SELFPAY | PROVIDERS: PCP Internal Medicine; Visit Provider Internal Medicine | DX: M67.432 Ganglion, left wrist (principal); L65.9 Nonscarring hair loss, unspecified; F41.9 Anxiety disorder, unspecified; F41.0 Panic disorder [episodic paroxysmal anxiety]; F33.41 Major depressive disorder, recurrent, in partial remission; F41.1 Generalized anxiety disorder; F43.9 Reaction to severe stress, unspecified; M54.16 Radiculopathy, lumbar region | CPT/HCPCS: 99212 ==

== ENCOUNTER 2025-05-22 09:33 | Outpatient (AMB) | payer OTHER, SELFPAY ==
[2025-05-22 09:37] VITALS: BP 120/80; PULSE 68; O2SAT 98; BMI 36.0
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
== END 2025-05-22 10:29 | disposition home or self-care (01) ==
LOC: HO.HMCC 09:34
PROVIDERS: PCP Internal Medicine; Visit Provider Internal Medicine
DX: F33.41 Major depressive disorder, recurrent, in partial remission (principal); F41.1 Generalized anxiety disorder; F41.0 Panic disorder [episodic paroxysmal anxiety]; F43.9 Reaction to severe stress, unspecified; M54.16 Radiculopathy, lumbar region; M67.432 Ganglion, left wrist

== ENCOUNTER → 2025-05-22 09:33 | Outpatient (BNVA) | payer OTHER, SELFPAY | PROVIDERS: PCP Internal Medicine; Visit Provider Internal Medicine | DX: F33.41 Major depressive disorder, recurrent, in partial remission (principal); F41.1 Generalized anxiety disorder; F41.0 Panic disorder [episodic paroxysmal anxiety]; F43.9 Reaction to severe stress, unspecified; M54.16 Radiculopathy, lumbar region; M67.432 Ganglion, left wrist | CPT/HCPCS: 99212 ==